=== PATIENT | male | born 1950 | race Caucasian/White ===

== ENCOUNTER 2020-10-27 14:53 | Emergency (ER) | payer MEDICARE, BC, SELFPAY ==
[2020-10-27 14:55] VITALS: BP 175/61; PULSE 90; RESP 17; TEMP 35.6; O2SAT 99; BMI 34.4
--- NOTE | 2020-10-27 15:25 | EKG12_ITS ---
Test Reason : ABN LABS Blood Pressure : / mmHG Vent. Rate : 075 BPM Atrial Rate : 075 BPM P-R Int : 152 ms QRS Dur : 148 ms QT Int : 422 ms P-R-T Axes : 046 056 -24 degrees QTc Int : 471 ms Normal sinus rhythm Left bundle branch block Abnormal ECG Confirmed by SARAH SANTANA, PAKO ([id number]), sports editor TIM QUISPE ([id number]) on 10/31/2020 2:37:50 PM Referred By: DARRIUS Confirmed By:PAKO SMITH MD
[2020-10-27 15:36] LABS: Absolute Lymphocyte Count 1.77 X10^3/uL (0.83-4.51); Basophil# 0.07 X10^3/uL; Basophil% 1.1 % (0-1); Eosinophil# 0.16 X10^3/uL; Eosinophils% 2.5 % (0-5); Hematocrit 29.1 % (40-54); Hemoglobin 8.2 g/dL (13.0-16.5); Lymphocyte # 1.77 X10^3/ul (4.0); Lymphocyte % 27.1 % (19-41); Mean Corp Hgb Conc 28.2 g/dL (32-36); Mean Corpuscular Hgb 21.2 pg (27.0-32.0); Mean Corpuscular Volume 75.2 fL (80-94); Mean Platelet Vol. 10.7 fl (6.2-12.0); Monocyte# 0.54 X10^3/uL; Monocyte% 8.3 % (0-10); NRBC Flagged by Analyzer 0 % (0-5); Neutrophil # 3.95 X10^3/uL (2.7-7.7); Neutrophil % 60.5 % (47-70); Platelet Count 235 K/mm3 (150-450); RBC Distribution Width CV 16.4 % (11.6-14.6); RBC Distribution Width SD 44.3 fl (35.1-43.9); Red Blood Count 3.87 M/mm3 (4.6-6.2); White Blood Count 6.5 K/mm3 (4.4-11.0)
[2020-10-27 15:50] LABS: Anion Gap 6 (5-15); BUN 38 mg/dL (7-18); BUN/Creat Ratio 25.2 RATIO (10-20); Chloride 109 mmol/L (98-107); Creatinine, Serum 1.51 mg/dL (0.70-1.30); EST Glomerular Filtration Rate 49 mL/min (>60); Est Glom Filt Rate - Afr Amer 59 mL/min (>60); Estimated Creatinine Clearance 50.68 ml/min; Glucose 200 mg/dL (74-106); Sodium Level 139 mmol/L (136-145)
--- NOTE | 2020-10-27 16:32 | ED.VIS.GEN ---
History of Present Illness Chief Complaint: Abn Labs Informant: Patient Onset: Month(s) - 1-2 Context: Gradual Onset Timing: Continuous Quality: weakness Location: all over Current Severity: Moderate Maximum Severity: Moderate Worsened by: nothing in particular Relieved by: nothing Associated Symptoms: intermittent BRBPR x several weeks Narrative: Patient gets blood work every 6 weeks routinely for the last several years because he had a broken neck that required surgery and subsequent dehiscence of the wound, had plastics place a flap that did not take and became infected with MRSA and then required other plastics manipulation of back muscles, with a significantly complicated course. He states the most recent blood work was obtained about 5 days ago, and showed anemia. When his doctor's office called to discuss with him, they told him how he was having rectal bleeding and so he advised him to come to the emergency department for further evaluation. Patient has had lightheadedness and a couple episodes of near syncope over the past several months, no syncopal episodes, or dyspnea with exertion or chest discomfort or falls/injuries. Patient states that the intermittent rectal bleeding has been present for weeks, and he seems to have bleeding whenever he has a hard stool and he feels a small external hemorrhoid there. He has had no major pain there or major ongoing bleeding. He takes daily aspirin but is on no anticoagulants. - Past Medical History (1) Hypertension Status: Chronic (2) Hyperlipidemia Status: Chronic (3) GERD (gastroesophageal reflux disease) Status: Chronic (4) History of MRSA infection Status: Chronic (5) CAD (coronary artery disease) Status: Chronic (6) Uncontrolled type 2 diabetes mellitus Status: Chronic Past Medical History - Allergies and Home Meds Allergies/Adverse Reactions: Allergies Hxikvjy-Lum-Huu Reductase Inhibitor Adverse Reaction (Verified 10/27/20 14:54) Other WEAKNESS, SORE LEGS Primary Care Physician: Jose Luis Larose MD [Primary Care Provider] - Smoking Status: Former smoker Review of Systems General: Reports: Malaise. Denies: Chills, Fever, Sweats Eyes: Denies: Visual changes - bilaterally, Diplopia ENT: Denies: Rhinorrhea, Sore throat Cardiovascular: Denies: Chest pain, Palpitations Respiratory: Denies: Dyspnea, Cough, Dyspnea on exertion Gastrointestinal: Reports: Hematochezia. Denies: Abdominal pain, Nausea, Vomiting, Diarrhea, Melena Genitourinary: Denies: Dysuria, Hematuria, Frequency Musculoskeletal: Denies: Swelling, Extremity Pain Skin: Denies: Rash, Wounds Neurological: Denies: Headache, Weakness, Numbness Physical Exam Vital Signs/Narrative: Vital Signs Temp Pulse Resp BP Pulse Ox 10/27/20 14:55 96.0 F L 90 17 175/61 H 99 Inital Vital Signs reviewed: Yes General: Well nourished, Well developed, No Acute Distress - Conversive in full sentences, well-appearing Head: Normocephalic, Atraumatic Eyes: Perrl, EOMI ENT: Moist mucous membranes, No rhinorrhea Neck: Supple, Nontender, No lymphadenopathy, No JVD Cardiovascular: Regular rate, Regular rhythm, Murmur - Soft systolic, 08/31. Negative for: Tachycardia Respiratory: No distress, CTA bilaterally, Chest nontender Abdomen: Soft, Nontender, Nondistended, Normal bowel sounds Back: Nontender, Normal Inspection Extremities: Nontender, No edema Skin: Normal color, No rash, No Trauma Neurological: Alert, Oriented x3, Cranial nerves II-XII grossly intact, Normal Strength, Normal Sensation Psychological: Normal affect, Normal Mood Diagnostic/Tx/Re-eval Laboratory Results 10/27/20 10/27/20 15:05 15:05 WBC 6.5 RBC 3.87 L Hgb 8.2 L Hct 29.1 L MCV 75.2 L MCH 21.2 L MCHC 28.2 L RDW Std Deviation 44.3 H RDW Coeff of Arleen 16.4 H Plt Count 235 MPV 10.7 Immature Gran % (Auto) 0.500 Neut % (Auto) 60.5 Lymph % (Auto) 27.1 [place] % (Auto) 8.3 Eos % (Auto) 2.5 Baso % (Auto) 1.1 H Absolute Neuts (auto) 4.0 Absolute Lymphs (auto) 1.77 Nucleated RBC % 0 Sodium 139 Potassium 5.0 Chloride 109 H Carbon Dioxide 24.0 Anion Gap 6 BUN 38 H Creatinine 1.51 H Estim Creat Clear Calc 50.68 Est GFR (MDRD) Af Amer 59 L Est GFR (MDRD) Non-Af 49 L BUN/Creatinine Ratio 25.2 H Glucose 200 H Calcium 9.0 Troponin I < 0.015 - Rhythm Strip Rhythm Strip: Sinus Rhythm Rate: 75 Ectopy: None - EKG Initial EKG Interpretation: Sinus Rhythm, No Acute Injury Pattern, LBBB Prior: No Prior - Medical Decision Making Patient sent globin is 8.2. His PCP had measurements from several days ago showing a hemoglobin of 8.9 and 3 or 4 months ago he was around 10. The patient indicates that he has had intermittent rectal bleeding from what feels like a hemorrhoid that is just inside and has never prolapsed for several years. He states this fairly consistently occurs when he passes a very hard stool and subsequently, he then uses Preparation H for a couple days and has no subsequent bleeding. He states he has had a colonoscopy in the past and as a result they have done something with a couple hemorrhoids. He does not have any unstable vital signs or tachycardia or symptoms of unstable bleeding. He declines a rectal exam to evaluate his hemorrhoid or rectum. At this point I discussed with him, his , and his PCP and all are comfortable with placing him on iron supplementation and having him follow-up as an outpatient for now. Of note he has renal insufficiency as well, that is also relatively stable within the last 4 months after discussing over the phone prior measurements, and he may have subsequent anemia of chronic disease, although his MCV is low today. ED Disposition - Plan for ED Patient: Disposition: Home or Assisted Living Diagnosis: Anemia, CRI (chronic renal insufficiency), Rectal bleeding Instructions: ED Lower GI Bleeding (Stable), ED Anemia, Type Not Specified (Adult) Prescriptions: Ferrous Sulfate [Iron] 325 mg PO TID #90 tab Transmission Status: Pending to [id number] Referrals: Jose Luis Laorse MD [Primary Care Provider] - 1-2 Weeks Additional Instructions: Consider getting a stool softener such as MiraLAX to use daily
== END 2020-10-27 17:57 | disposition home or self-care (01) ==
PROVIDERS: Emergency Provider Emergency Medicine; PCP Family Medicine
DX: D64.9 Anemia, unspecified (principal); I12.9 Hypertensive chronic kidney disease with stage 1 through stage 4 chronic kidney disease, or unspecified chronic kidney disease; K62.5 Hemorrhage of anus and rectum; N18.9 Chronic kidney disease, unspecified; E11.22 Type 2 diabetes mellitus with diabetic chronic kidney disease; E78.5 Hyperlipidemia, unspecified; I25.10 Atherosclerotic heart disease of native coronary artery without angina pectoris; K21.9 Gastro-esophageal reflux disease without esophagitis; I44.7 Left bundle-branch block, unspecified; Z79.82 Long term (current) use of aspirin; Z86.14 Personal history of Methicillin resistant Staphylococcus aureus infection; Z87.891 Personal history of nicotine dependence; Z88.8 Allergy status to other drugs, medicaments and biological substances
CPT/HCPCS: 80048; 84484; 85025; 86850; 86900; 86901; 93005; 99283

== ENCOUNTER 2020-12-13 09:01 | Day surgery (SDC) | payer MEDICARE, BC, SELFPAY ==
[2020-12-01 11:46] VITALS: BMI 34.7
[2020-12-13] VITALS (7 sets, daily range): BP systolic 112–125; BP diastolic 71–80; PULSE 66–71; RESP 14–16; TEMP 36.2–36.8; O2SAT 99–100; BMI 32.8
--- NOTE | 2020-12-13 | IMM_PTH ---
PATIENT: ATA DE LA TORRE LOC: EN U#:[id number] AGE/SX: 70/M ROOM: RE12/13/[address]: Dr. Bronson Jacobson MD : 1950 BED: DIS: 12/13/2020 SPEC #: [id number] RECD: 12/14/20 11:51 STATUS: TAWANDA REQ #: [id number] AWILDA: 12/13/20 00:[address]: Bronson Jacobson DEPT: IMMUNOHISTOCHEMISTRY RECD BY: Yeimy Ortega ENTERED: 12/14/20 11:53 SP TYPE: IMMUNO OTHR DR: Dr. Jose Luis Larose MD Tissues: A - Gastric mucous membrane B - Cecum, NOS Procedures: MSH2 (add) MLH-1 (add) MSH6 (add) NORTH-2 (add) HER2 HANNAH (add) P53 (add) KI-67 (initial) PHYSICIAN & INSTITUTION [place] [id number] SPECIMEN INFORMATION: Tissue Source: A - GE junction biopsy, B - Cecal mass Clinical Info: Positive fecal occult blood test, iron deficiency anemia Specimen Number: [id number] A & B CPT code: 61470 x2, 59251 x8 METHODOLOGY: Deparaffinized sections of prefer/formalin-fixed tissue or PAP/DQ stained slides are incubated with monoclonal/polyclonal antibodies/oligonucleotide probes. Localization is made via biotin free immunoperoxidase method. Appropriate controls are performed and reacted as expected. Results on target cell population are indicated in the following table: RESULTS: ANTIBODY / CLONE RESULT Block A P53 (DO-7) negative Ki-67 (30-9) negative Block B Ki-67 (30-9) positive, 80% P53 (DO-7) positive, 25% NORTH-2 (SP21) positive MLH-1 (M1) positive MSH2 (25D12) positive MSH6 (44) positive PMS2 (QEZ6246) positive Her-2neu (CB11) negative These tests were developed and their performance characteristics determined by [facility]. They may not have been cleared or approved by the U.S. Food and Drug Administration. The FDA has determined that such clearance or approval is not necessary. The above immunohistochemical/dualISH markers are ordered and reviewed by the Pathologist. INTERPRETATION: A. GE junction, biopsy: No evidence of dysplasia. B. Cecal mass, biopsy: Invasive adenocarcinoma. Result of Microsatellite Instability Study: Negative (no loss of mismatch protein; no microsatellite instability detected). AM:florencia 12/15/2020
--- NOTE | 2020-12-13 07:12 | HP_ITS ---
Intake Vital Signs 12/01/20 Height 5 ft 11.5 in 12/01/20 Weight: 252 lb 3 oz 12/01/20 BMI 34.7 12/01/20 BP 150/81 H 12/01/20 Blood Pressure Location Rt brachial 12/01/20 Position Sitting 12/01/20 Respiration 18 12/01/20 Pulse 77 12/01/20 Pulse Source NIBP 12/01/20 Temp 97.7 F L 12/01/20 Temp Source Temporal 12/01/20 Pulse Oximetry (%) 98 12/01/20 Oxygen Delivery Method room air Intake Visit Reasons: C-Scope/Anemia Chief Complaint: anemia Security Solutions Engineer Required: No Is patient in pain?: No Allergies Tfsafae-Efa-Ofp Reductase Inhibitor Adverse Reaction (Verified 12/01/20 11:47) Other Medications Acetaminophen [Tylenol Arthritis] 1,300 mg PO BID PRN PRN 10/27/20 [History Confirmed 12/01/20] Aspirin E.C. [Ecotrin] 81 mg PO DAILY@0800 10/27/20 [History Confirmed 12/01/20] Diclofenac [Voltaren] 75 mg PO BID 10/27/20 [History Confirmed 12/01/20] Esomeprazole Magnesium 40 mg PO DAILY 10/27/20 [History Confirmed 12/01/20] Ezetimibe 10 mg PO DAILY 10/27/20 [History Confirmed 12/01/20] Ferrous Sulfate [Iron] 325 mg PO TID #90 tab 10/27/20 [Rx Confirmed 12/01/20] Fluticasone Propionate 2 spray NASAL DAILY 10/27/20 [History Confirmed 12/01/20] Goldenseal 325 mg PO DAILY 10/27/20 [History Confirmed 12/01/20] Metformin HCl 500 mg PO BID 10/27/20 [History Confirmed 12/01/20] Multivitamins,Therapeutic [Multivitamin] 1 tab PO DAILY 10/27/20 [History Confirmed 12/01/20] Smz/Tmp Ds [Bactrim Ds] 1 tab PO DAILY 10/27/20 [History Confirmed 12/01/20] Tadalafil 5 mg PO DAILY 10/27/20 [History Confirmed 12/01/20] lisinopril 5 mg tablet 10 mg PO DAILY tablet 12/01/20 [History Confirmed 12/01/20] nystatin 100,000 unit/gram topical ointment gm TOPICAL 12/01/20 [History Confirmed 12/01/20] [facility] Medical History (Updated 12/01/20 @ 12:[address] Bronson Jacobson MD) Hypertension (Chronic) Hyperlipidemia (Chronic) GERD (gastroesophageal reflux disease) (Chronic) History of MRSA infection (Chronic) CAD (coronary artery disease) (Chronic) Uncontrolled type 2 diabetes mellitus (Chronic) Anemia (Acute) BPH (benign prostatic hyperplasia) (Acute) History of neck injury (Acute) History of prostate cancer (Acute) Chronic neck pain (Chronic) Chronic sinusitis (Chronic) Surgical History (Updated 12/01/20 @ 11:46 by Gabbi Magana) History of colonoscopy (Acute ~2010) History of heart bypass surgery (Acute ~2010) History of neck surgery (Acute ~2017) History of prostatectomy (Acute ~2010) Family History (Updated 12/01/20 @ 11:46 by Gabbi Magana) Other Cancer Heart disease Hypertension Social History (Updated 12/01/20 @ 12:[address] Bronson Jacobson MD) Smoking Status: Former smoker HPI HPI HPI: ATA DE LA TORRE, is a 70 M who presents to the office today for HPI HPI Surgical H&P: Yes HPI: DEBBIE DE LA TORRE, is a 70 M who presents to the office today for anemia positive fecal occult blood test. The patient reports that he has become slowly anemic. He has not had any gross blood in his stool. He has baseline discomfort in his abdomen with acid reflux and he is on Nexium. He had a normal colonoscopy in 2010. ROS General General: Yes fatigue; no weight change, appetite, colon cancer, breast cancer or weakness HEENT HEENT: No difficulty swallowing, eye injury, eye surgery, swollen glands or hoarseness Endo Endocrine: Yes diabetes mellitus; no thyroid disease, thyroid cancer, Hair loss, heat intolerance or cold intolerance Musc Musculoskeletal: Yes back problems and arthritis; no rheumatoid arthritis, gout or joint pain Cardio Cardiovascular: Yes heart disease and high blood pressure; no murmur, pacemaker, atrial fibrillation, heart attack, heart stent, palpitations, shortness of breat with exertion or chest pain Psych Psychiatric: No depression, anxiety or hearing voices Resp Respiratory: No shortness of breath, No sleep apnea, No cough, No COPD, No asthma, No emphysema, No wheezing Gastro Gastrointestinal: Yes abdominal pain, No nausea or vomiting, Yes diarrhea, Yes constipation, Yes blood in stool, Yes acid reflux, Yes hemorrhoids, Yes ulcers, No gallbladder problem, Yes black,tarry stools Aidan Hematologic: No blood thinners, Yes blood disorders, No bleeding, Yes anemia, No blood clots Neuro Neurologic: No weakness Exam Const General: cooperative Orientation: alert, oriented x3 Resp Effort & Inspection: normal respiratory effort Auscultation: clear to auscultation bilaterally Cardio Rate: regular rate Rhythm: regular rhythm Heart Sounds: no murmurs GI Inspection: non-distended Palpation: soft, nontender Assessment & Plan Problems 1. Positive fecal occult blood test R19.5 2. Iron deficiency anemia, unspecified iron deficiency anemia type D50.9 Plan The patient has positive fecal occult blood test and anemia he has required transfusion. He has no gross blood in his stool. The patient is on a baby aspirin and I do recommend that he have an EGD and colonoscopy. He may continue his aspirin. The patient is already on a PPI. I explained endoscopy in detail to the patient. I explained the risks including but not limited to stroke or heart attack with anesthesia, perforation of the GI tract, bleeding, infection. I explained that any of these could necessitate further emergency surgery. The patient understands and all questions were answered sufficiently. The patient wishes to proceed with procedure. Bronson Jacobson MD Pager: [facility] [address] [place] [address], [address] [place] [address] Office: Orders Orders: Colonoscopy Today D64.9, R19.5 EGD Today D64.9 Coding Level of Care Code Off vis,new,level 3 Diagnoses Positive fecal occult blood test R19.5 Iron deficiency anemia, unspecified iron deficiency anemia type D50.9 ??Anemia type: iron deficiency ??Iron deficiency anemia type: unspecified iron deficiency I have re-examined the patient. There are no clinical changes since date of exam.
--- NOTE | 2020-12-13 10:15 | EGD_PTH ---
PATIENT: ATA DE LA TORRE LOC: EN U#:[id number] AGE/SX: 70/M ROOM: RE12/13/[address]: Dr. Bronson Jaocbson MD : 1950 BED: DIS: 12/13/2020 SPEC #: [id number] RECD: 12/13/20 11:13 STATUS: TAWANDA REMaverick #: [id number] AWILDA: 12/13/20 10:[address]: Bronson Jacobson DEPT: SURGICAL PATHOLOGY RECD BY: Lexy Vickers ENTERED: 12/13/20 12:35 SP TYPE: EGD BIOPSY OT DR: Dr. Jose Luis Larose MD Tissues: A - Gastric mucous membrane B - Cecum, NOS Procedures: Special Stain Group II Surgery Specimen Level IV Alcian Blue/PAS (control) HEADER OPERATION: Colonoscopy, EGD ([facility]) PRE-OP DIAGNOSIS: Positive fecal occult blood test; iron deficiency anemia TISSUE SUBMITTED: A - GE junction biopsy, B - Cecal mass MICROSCOPIC DIAGNOSIS A. 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 No evidence of dysplasia. See comment. B. Cecal mass, biopsy: Invasive moderately differentiated adenocarcinoma. See comment. AM:florencia 12/14/2020 COMMENT A. Immunohistochemistry ([id number]) supports the above diagnosis. Alcian blue/PAS stain with matched control supports the above diagnosis. B. Immunohistochemistry ([id number]) supports the above diagnosis. Case has been reviewed in consultation with Dr. Salmeron who concurs with the above diagnosis. IDC:SJ MICROSCOPIC DESCRIPTION Slides are reviewed. GROSS DESCRIPTION A - Received in fixative is one container labeled with the patient's name and designated GE junction biopsy. The specimen consists of multiple irregular fragments of light troncoso soft tissue that in aggregate measure 0.6 x 0.3 x 0.1 cm. The specimen is totally submitted in one cassette. B - Received in fixative is one container labeled with the patient's name and designated cecal mass. The specimen consists of multiple irregular fragments of light troncoso soft tissue that in aggregate measure 1.5 x 0.5 x 0.1 cm. The specimen is totally submitted in one cassette. / DARIAN:florencia 12/13/20 TC:0 CPT: 99789 x2, 15148
--- NOTE | 2020-12-13 11:02 | PN_ITS ---
Progress Note Patient was found to have a mass in the cecum on the colonoscopy. I discussed this with the patient and his . I will order a CT scan for staging as well as a CEA and a CBC and BMP. Patient will follow-up with me next week to discuss surgery. Bronson Jacobson MD Pager: [facility] [address] [place] [address], [address] [place] [address] Office: [facility] Vital Signs/Narrative: Vital Signs Temp Pulse Resp BP Pulse Ox 12/13/20 09:25 98.2 F 68 16 122/75 H 100
--- NOTE | 2020-12-13 11:02 | PCM.PN.BLA ---
Progress Note Patient was found to have a mass in the cecum on the colonoscopy. I discussed this with the patient and his . I will order a CT scan for staging as well as a CEA and a CBC and BMP. Patient will follow-up with me next week to discuss surgery. Bronson Jacobson MD Pager: [facility] [address] [place] [address], [address] [place] [address] Office: [place] Vital Signs/Narrative: Vital Signs Temp Pulse Resp BP Pulse Ox 12/13/20 09:25 98.2 F 68 16 122/75 H 100
--- NOTE | 2020-12-13 11:05 | OP.EGD_ITS ---
Patient Name: Sekou Daniel Procedure Date: 12/13/2020 10:24 AM Date of : 1950 Age: 70 Procedure: Upper GI endoscopy Indications: Abdominal pain in the right lower quadrant, Iron deficiency anemia Providers: Bronson Jacobson MD Referring MD: Jose Luis Larose Medicines: Monitored Anesthesia Care Patient Profile: This is a 70 year old male. Refer to note in patient chart for documentation of history and physical. Complications: No immediate complications. Procedure: Pre-Anesthesia Assessment: - Prior to the procedure, a History and Physical was performed, and patient medications and allergies were reviewed. The patient's tolerance of previous anesthesia was also reviewed. The risks and benefits of the procedure and the sedation options and risks were discussed with the patient. All questions were answered, and informed consent was obtained. Prior Anticoagulants: The patient has taken no previous anticoagulant or antiplatelet agents. After reviewing the risks and benefits, the patient was deemed in satisfactory condition to undergo the procedure. After obtaining informed consent, the endoscope was passed under direct vision. Throughout the procedure, the patient's blood pressure, pulse, and oxygen saturations were monitored continuously. The gastroscope was introduced through the mouth, and advanced to the second part of duodenum. The upper GI endoscopy was accomplished without difficulty. The patient tolerated the procedure well. Scope In: 10:33:49 AM Scope Out: 10:36:25 AM Total Procedure Duration Time 0 hours 2 minutes 36 seconds Findings: The esophagus and gastroesophageal junction were examined with white light from a forward view and retroflexed position. There were esophageal mucosal changes suspicious for short-segment Mendoza's esophagus. These changes involved the mucosa extending to the Z-line. One tongue of salmon-colored mucosa was present. The maximum longitudinal extent of these esophageal mucosal changes was 2 cm in length. Mucosa was biopsied with a cold forceps for histology in a targeted manner at the gastroesophageal junction. One specimen bottle was sent to pathology. The examined duodenum was normal. The stomach was normal. 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 Biopsied. - Normal examined duodenum. - Normal stomach. Recommendation: - Await pathology results. - Discharge patient to home. - Resume previous diet. - Continue present medications. Procedure Code(s): --- Professional --- 72981, Esophagogastroduodenoscopy, flexible, transoral; with biopsy, single or multiple Diagnosis Code(s): --- Professional --- K22.8, Other specified diseases of esophagus R10.31, Right lower quadrant pain D50.9, Iron deficiency anemia, unspecified CPT copyright 2017 [employer]. All rights reserved. The codes documented in this report are preliminary and upon customer advocacy manager review may be revised to meet current compliance requirements. Bronson Jacobson MD 12/13/2020 11:05:11 AM This report has been signed electronically. Number of Addenda: 0 Note Initiated On: 12/13/2020 10:24 AM
--- NOTE | 2020-12-13 11:05 | OP.CCLET_ITS ---
12/13/2020 Jose Luis Larose [address] [place] [address] [place] [address] Re : Upper GI endoscopy procedure for Sekou Daniel Dear Dr. Larose This procedure was performed on Sunday, December 13, 2020. 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 Biopsied. - Normal examined duodenum. - Normal stomach. Recommendations : - Await pathology results. - Discharge patient to home. - Resume previous diet. - Continue present medications. My findings are described in the full procedure note, which is enclosed. If I can be of further assistance, please feel free to contact me at Doctor phone number(s): , Work: . Sincerely, Bronson Jacobson MD 12/13/2020 11:05:11 AM This report has been signed electronically.
--- NOTE | 2020-12-13 11:10 | OP.COLON_ITS ---
Patient Name: Sekou Daniel Procedure Date: 12/13/2020 10:38 AM Date of : 1950 Age: 70 Procedure: Colonoscopy Indications: Abdominal pain in the right lower quadrant, Iron deficiency anemia Providers: Bronson Jacobson MD Referring MD: Jose Luis Larose Medicines: Monitored Anesthesia Care Patient Profile: This is a 70 year old male. Refer to note in patient chart for documentation of history and physical. Last Colonoscopy: 10 years ago. Complications: No immediate complications. Estimated blood loss: Minimal. Procedure: Pre-Anesthesia Assessment: - Prior to the procedure, a History and Physical was performed, and patient medications and allergies were reviewed. The patient's tolerance of previous anesthesia was also reviewed. The risks and benefits of the procedure and the sedation options and risks were discussed with the patient. All questions were answered, and informed consent was obtained. Prior Anticoagulants: The patient has taken aspirin, last dose was day of procedure. After reviewing the risks and benefits, the patient was deemed in satisfactory condition to undergo the procedure. After I obtained informed consent, the scope was passed under direct vision. Throughout the procedure, the patient's blood pressure, pulse, and oxygen saturations were monitored continuously. The Colonoscope was introduced through the anus and advanced to the cecum, identified by appendiceal orifice and ileocecal valve. Scope In: 10:39:41 AM Scope Withdrawal Time 0 hours 6 minutes 9 seconds Scope Out: 10:51:08 AM Total Procedure Duration Time 0 hours 11 minutes 27 seconds Findings: A fungating non-obstructing large mass was found in the cecum. The mass was non-circumferential. No bleeding was present. This was biopsied with a cold forceps for histology. The exam was otherwise without abnormality on direct and retroflexion views. Impression: - Likely malignant tumor in the cecum. Biopsied. - The examination was otherwise normal on direct and retroflexion views. Recommendation: - Discharge patient to home. - Resume previous diet. - Continue present medications. - Await pathology results. - Repeat colonoscopy for surveillance based on pathology results. - Return to my office in 1 week. - Perform CT scan (computed tomography) of the abdomen with contrast at appointment to be scheduled. Procedure Code(s): --- Professional --- 21081, Colonoscopy, flexible; with biopsy, single or multiple Diagnosis Code(s): --- Professional --- D49.0, Neoplasm of unspecified behavior of digestive system R10.31, Right lower quadrant pain D50.9, Iron deficiency anemia, unspecified CPT copyright 2017 [employer]. All rights reserved. The codes documented in this report are preliminary and upon gang boss review may be revised to meet current compliance requirements. Bronson Jacobson MD 12/13/2020 11:10:25 AM This report has been signed electronically. Number of Addenda: 0 Note Initiated On: 12/13/2020 10:38 AM
--- NOTE | 2020-12-13 11:11 | OP.CCLET_ITS ---
12/13/2020 Jose Luis Larose [address] [place] [address] [place] [address] Re : Colonoscopy procedure for Sekou Daniel Dear Dr. Larose This procedure was performed on Sunday, December 13, 2020. My impressions and recommendations are as follows: Impressions : - Likely malignant tumor in the cecum. Biopsied. - The examination was otherwise normal on direct and retroflexion views. Recommendations : - Discharge patient to home. - Resume previous diet. - Continue present medications. - Await pathology results. - Repeat colonoscopy for surveillance based on pathology results. - Return to my office in 1 week. - Perform CT scan (computed tomography) of the abdomen with contrast at appointment to be scheduled. My findings are described in the full procedure note, which is enclosed. If I can be of further assistance, please feel free to contact me at Doctor phone number(s): , Work: . Sincerely, Bronson Jacobson MD 12/13/2020 11:10:25 AM This report has been signed electronically.
[2020-12-13 11:51] LABS: Bedside Glucose 156 mg/dL (70-110)
[2020-12-13 12:08] LABS: Absolute Lymphocyte Count 1.36 X10^3/uL (0.83-4.51); Absolute Neutrophil Count 3.5 X10^3/uL (2.0-7.7); Basophil# 0.04 X10^3/uL; Basophil% 0.7 % (0-1); Eosinophil# 0.12 X10^3/uL; Eosinophils% 2.2 % (0-5); Hematocrit 35.5 % (40-54); Hemoglobin 10.9 g/dL (13.0-16.5); Lymphocyte # 1.36 X10^3/ul (0.83-4.51); Lymphocyte % 25.2 % (19-41); Mean Corp Hgb Conc 30.7 g/dL (32-36); Mean Corpuscular Hgb 26.2 pg (27.0-32.0); Mean Corpuscular Volume 85.3 fL (80-94); Mean Platelet Vol. 10.7 fl (6.2-12.0); Monocyte# 0.35 X10^3/uL; Monocyte% 6.5 % (0-10); NRBC Flagged by Analyzer 0 % (0-5); Platelet Count 162 K/mm3 (150-450); RBC Distribution Width CV 19.4 % (11.6-14.6); RBC Distribution Width SD 59.9 fl (35.1-43.9); Red Blood Count 4.16 M/mm3 (4.6-6.2); White Blood Count 5.4 K/mm3 (4.4-11.0)
[2020-12-13 12:32] LABS: Anion Gap 5 (5-15); BUN 18 mg/dL (7-18); BUN/Creat Ratio 15.7 RATIO (10-20); Calcium,Total 8.9 mg/dL (8.5-10.1); Chloride 104 mmol/L (98-107); Creatinine, Serum 1.15 mg/dL (0.70-1.30); EST Glomerular Filtration Rate 67 mL/min (>60); Est Glom Filt Rate - Afr Amer 81 mL/min (>60); Glucose 140 mg/dL (74-106); Potassium 4.8 mmol/L (3.5-5.1); Sodium Level 136 mmol/L (136-145)
[2020-12-14 12:17] LABS: Carcinoembryonic Antigen 9.2 ng/mL (0.0-4.7)
== END 2020-12-13 12:18 | disposition home or self-care (01) ==
LOC: EN 09:01 → AC 09:03
PROVIDERS: PCP Family Medicine; Referring Provider Family Medicine; Visit Provider Surgery
PROC: 0DJD8ZZ Inspection of Lower Intestinal Tract, Via Natural or Artificial Opening Endoscopic (ICD-10-PCS; CPT 45378; principal; 2020-12-13 10:10)
DX: C18.0 Malignant neoplasm of cecum (principal); K22.70 Barrett's esophagus without dysplasia; R19.5 Other fecal abnormalities; D50.9 Iron deficiency anemia, unspecified; Z79.82 Long term (current) use of aspirin; K22.8 Other specified diseases of esophagus; R10.31 Right lower quadrant pain; K21.9 Gastro-esophageal reflux disease without esophagitis; I10 Essential (primary) hypertension; E78.5 Hyperlipidemia, unspecified; I25.10 Atherosclerotic heart disease of native coronary artery without angina pectoris; Z85.46 Personal history of malignant neoplasm of prostate; Z86.14 Personal history of Methicillin resistant Staphylococcus aureus infection; Z87.891 Personal history of nicotine dependence; Z79.1 Long term (current) use of non-steroidal anti-inflammatories (NSAID); Z79.84 Long term (current) use of oral hypoglycemic drugs; Z88.8 Allergy status to other drugs, medicaments and biological substances
CPT/HCPCS: 43239; 45380; 80048; 82378; 82962; 85025; 88305; 88313; 88341; 88342; J7120; J2405

== ENCOUNTER → 2020-12-15 17:44 | Outpatient (CLI) | payer MEDICARE, BC, SELFPAY ==
[2020-12-13 09:25] VITALS: BMI 32.8
--- NOTE | 2020-12-15 17:45 | CT_ITS ---
INDICATION: colon mass EXAMINATION: CT Abdomen And Pelvis W/ Contrast Injection TECHNIQUE: Helically acquired images were obtained of the abdomen and pelvis after IV contrast. A radiation dose optimization technique was used for this scan. IV Contrast dosage and agent: 100 cc of [id number] Oral contrast: Yes. COMPARISON: None. FINDINGS: Visualized lung bases: Few tiny clustered nodular opacities in the right lung base. Liver: Unremarkable Gallbladder: Unremarkable Spleen: Unremarkable Pancreas: Unremarkable Adrenal Glands: Unremarkable Kidneys: Simple 1.3 cm cyst in the left midpole. Vasculature: Moderate aortoiliac atherosclerotic disease. GI Tract: Scattered diverticula throughout the colon without evidence of inflammation. In the cecum just distal to the ileocecal valve, there is irregular wall thickening measuring approximately 2.5 x 4.5 x 2.4 cm. Lymphadenopathy: There are a couple prominent ileocecal nodes measuring 8 mm and 7 mm, respectively. Peritoneum: No ascites. Bladder: Unremarkable Reproductive organs: Unremarkable Bones/Soft tissues: There are diffuse degenerative changes of the spine. CT/Abdomen/Pelvis WITH Contrast IMPRESSION: 4.5 cm masslike thickening of the cecum just distal to the ileocecal valve. This is concerning for malignancy. Few tiny clustered nodular opacities in the right lung base. Recommend dedicated chest CT for further evaluation. Electronically Signed: Elbert Baig MD at 22:52 EDT Tel , Service support ,
== END ==
PROVIDERS: PCP Family Medicine; Referring Provider Surgery; Visit Provider Surgery
DX: K63.9 Disease of intestine, unspecified (principal)
CPT/HCPCS: 74177; Q9967

== ENCOUNTER 2021-01-02 08:44 | Inpatient (IN) | payer MEDICARE, BC, SELFPAY ==
[2020-12-21 14:07] VITALS: BMI 32.8
--- NOTE | 2020-12-26 15:33 | NURSING ---
pt reports he had second pfizer vaccine on 11/01/20.
[2020-12-27 13:37] LABS: Hemoglobin 10.8 g/dL (13.0-16.5); Mean Corpuscular Volume 86.7 fL (80-94); Platelet Count 183 K/mm3 (150-450); RBC Distribution Width CV 17.6 % (11.6-14.6); RBC Distribution Width SD 57.1 fl (35.1-43.9); Red Blood Count 4.15 M/mm3 (4.6-6.2); White Blood Count 6.8 K/mm3 (4.4-11.0)
[2020-12-27 13:52] LABS: Prothrombin Time (Protime)PT. 12.4 SECONDS (11.7-14.9)
[2020-12-27 13:53] LABS: Partial Thromboplast Time 25.9 Seconds (24.1-36.2)
[2020-12-27 14:10] LABS: Magnesium 2.4 mg/dL (1.6-2.6)
[2020-12-27 14:14] LABS: Hemoglobin A1c 6.1 % (3.8-5.6)
[2021-01-02] VITALS (18 sets, daily range): BP systolic 95–154; BP diastolic 48–79; PULSE 49–76; RESP 16–18; TEMP 36.2–36.9; O2SAT 93–100; BMI 32.5
--- NOTE | 2021-01-02 | COL._PTH ---
PATIENT: ATA DE LA TORRE LOC: MS3 U#:[id number] AGE/SX: 70/M [place] [facility]: Dr. Bronson Jacobson MD : 1950 BED: 1 DIS: 01/06/2021 SPEC #: [id number] RECD: 01/02/21 13:34 STATUS: TAWANDA WESTFALL #: [id number] AWILDA: 01/02/21 00:[address]: Bronson Jacobson DEPT: SURGICAL PATHOLOGY RECD BY: Fracisco Araujo ENTERED: 01/02/21 13:34 SP TYPE: COLON OTHR DR: MD Dr. 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 26 out of 26 lymph nodes, negative for metastatic carcinoma. See cancer summary in the comment section. SJ:florencia 01/04/2021 COMMENT COLON CANCER SUMMARY Procedure: Right hemicolectomy Tumor site: Cecum Tumor size: 6 x 4 x 0.5 cm Macroscopic tumor perforation: Not identified Histologic type: Adenocarcinoma with focal mucinous differentiation. See comment below. Histologic grade: G2-3 (moderately to poorly differentiated) Tumor extension: Tumor invades muscularis propria. Margins: All margins are uninvolved by invasive carcinoma, high grade dysplasia, intramucosal adenocarcinoma and adenoma. The tumor is 14 cm away from the distal resection margin and 17.5 cm away from the proximal resection margin. Treatment effect: No known presurgical therapy. Lymphvascular invasion: Not identified Perineural invasion: Not identified Type of polyp in which invasive carcinoma arose: None identified Tumor deposits: Not identified Regional lymph nodes: Number of lymph nodes examined: 26 Number of lymph nodes involved: 0 Distant metastasis: Not applicable Additional pathologic findings: Appendix - no pathologic diagnosis. Colonic donut - no pathologic diagnosis. Ancillary studies: Please refer to previous specimen [id number] and [id number] for complete microsatellite instability studies by IHC. The tumor is negative of microsatellite instability (no loss of mismatch protein and no microsatellite instability detected). Please make reference to previous specimen ([id number]) cecal mass, biopsy with diagnosis of ?invasive moderately differentiated adenocarcinoma. PATHOLOGIC STAGE: pT2 pN0 pMx The above summary is in compliance with [employer] (CAP) Cancer Protocols Checklist and [place] [employer] Committee on Cancer (AJCC), Staging Manual, 8th Ed. Mucinous differentiation comprise about 5-10% of the total tumor volume. This case is discussed with Dr. Ling on 01/05/21. MICROSCOPIC DESCRIPTION Slides are reviewed. GROSS DESCRIPTION Received in fixative is one container labeled with the patient's name and designated right colon. The specimen consists of a right hemicolectomy specimen consisting of segment of cecum, ascending colon and small intestine and appendix with attached pericolonic adipose and mesenteric tissue. The segment of colon, cecum with ascending colon measures 15 cm in length and segment of small intestine measures 13 cm in length and the appendix measures 6 cm in length and 0.3 cm in diameter. Both ends are stapled. 14 cm away from the distal resection margin and 2.5 cm away from the ileocecal valve, there is an ulcerated tumor mass in the cecum measuring 6 x 4 x 0.5 cm. No additional mass lesion is identified. The lumen contains fecal material. More dictation will follow after overnight fixation. / SJ:rg 01/02/21 Sections of the appendix reveal markedly obliterated lumen. The serosal surface overlying the tumor is inked black. Sections of the tumor reveal it involves full thickness of the bowel wall. No gross perforation is identified. Sections of the pericolonic adipose tissue reveal multiple lymph nodes. The largest lymph node measures 1.5 cm in greatest dimension. Travograph Operator sections are submitted as follows: 1??donut, 2 - proximal and distal resection margins, 3 - appendix, almost entirely submitted, 48 - tumor, 9??uninvolved ileocecal valve, small and large intestine, 10??one serially sectioned lymph node, 11??multiple lymph nodes, 12 - one bisected lymph node, 13 - one bisected lymph node, 14 - one serially sectioned lymph node, 15 - one serially sectioned lymph node, 16 - one bisected lymph node, 17 - one serially sectioned lymph node, 18 - multiple lymph nodes, 19 - one serially sectioned lymph node, 20??one bisected lymph node, 21 - multiple lymph nodes, 22 - one serially sectioned lymph node, 23??one serially sectioned lymph node, 24 - one serially sectioned lymph node, 25??one bisected lymph node. / SJ:rg 01/03/21 TC:0 CPT: 41117
--- NOTE | 2021-01-02 08:23 | HP_ITS ---
Intake <Angle Brennen Russell - Last Filed: 12/21/20 14:18> Vital Signs 12/21/20 14:02 12/21/20 14:07 Height 6 ft Weight: 242 lb BMI 32.8 32.8 BP 145/78 H Blood Pressure Location Rt brachial Position Sitting Respiration 16 Pulse 75 Pulse Source Monitor Temp 97.1 F L Temp Source Temporal Pulse Oximetry (%) 98 Oxygen Delivery Method room air Intake Visit Reasons: C-Scope CResults & Cat Scan Results Chief Complaint: Discuss CT Scan and c-scope First Sampler Required: No Is patient in pain?: No Allergies Ojnhuwc-Bgk-Dhy Reductase Inhibitor Adverse Reaction (Verified 12/21/20 14:07) Other Medications acetaminophen 1,300 mg PO BID PRN PRN 10/27/20 [History Confirmed 12/21/20] aspirin 81 mg PO DAILY@0800 10/27/20 [History Confirmed 12/21/20] esomeprazole magnesium 40 mg PO DAILY 10/27/20 [History Confirmed 12/21/20] ezetimibe 10 mg PO DAILY 10/27/20 [History Confirmed 12/21/20] ferrous sulfate 325 mg PO TID #90 tab 10/27/20 [Rx Confirmed 12/21/20] fluticasone propionate 2 spray NASAL DAILY 10/27/20 [History Confirmed 12/21/20] goldenseal 325 mg PO DAILY 10/27/20 [History Confirmed 12/21/20] multivitamin 1 tab PO DAILY 10/27/20 [History Confirmed 12/21/20] sulfamethoxazole-trimethoprim 1 tab PO DAILY 10/27/20 [History Confirmed 12/21/20] tadalafil 5 mg PO DAILY 10/27/20 [History Confirmed 12/21/20] lisinopril 5 mg tablet 10 mg PO DAILY tablet 12/01/20 [History Confirmed 12/21/20] metronidazole 500 mg tablet 500 mg PO .COMPLEX #3 tab 12/21/20 [Rx Confirmed 12/21/20] neomycin 500 mg tablet 500 mg PO .COMPLEX #6 tab 12/21/20 [Rx Confirmed 12/21/20] <Dr. Bronson Jacobson MD - Last Filed: 12/21/20 14:54> Vital Signs 12/21/20 14:02 12/21/20 14:07 Height 6 ft Weight: 242 lb BMI 32.8 32.8 BP 145/78 H Blood Pressure Location Rt brachial Position Sitting Respiration 16 Pulse 75 Pulse Source Monitor Temp 97.1 F L Temp Source Temporal Pulse Oximetry (%) 98 Oxygen Delivery Method room air [facility] <Angle Wells - Last Filed: 12/21/20 14:18> Medical History (Updated 12/21/20 @ 14:[address] 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 BPH (benign prostatic hyperplasia) CAD (coronary artery disease) Chronic neck pain Chronic sinusitis GERD (gastroesophageal reflux disease) History of MRSA infection History of neck injury History of prostate cancer Hyperlipidemia Hypertension Uncontrolled type 2 diabetes mellitus Surgical History (Updated 12/21/20 @ 14:14 by Angle Wells) History of colonoscopy (~2010) History of heart bypass surgery (~2010) History of neck surgery (~2017) History of prostatectomy (~2010) Family History (Updated 12/01/20 @ 11:46 by Gabbi Magana) Other Cancer Heart disease Hypertension Social History (Updated 12/01/20 @ 12:[address] Bronson Jacobson MD) Smoking Status: Former smoker HPI <Angle Wells - Last Filed: 12/21/20 14:18> HPI HPI: ATA DE LA TORRE, is a 70 M who presents to the office today for HPI <Angle Wells - Last Filed: 12/21/20 14:18> HPI HPI: ATA DE LA TORRE, is a 70 M who presents to the office today for <Dr. Bronson Jacobson MD - Last Filed: 12/21/20 14:54> HPI Surgical H&P: Yes HPI: Patient is a 70-year-old male here for colon mass. The patient had colonoscopy for blood in his stool which revealed a large mass in the cecum. Patient is not currently having any abdominal pain or issues other than the bleeding. ROS <Angle Wells - Last Filed: 12/21/20 14:18> General General: Yes fatigue; No weight change, appetite, colon cancer, breast cancer or weakness HEENT HEENT: No difficulty swallowing, eye injury, eye surgery, swollen glands or hoarseness Endo Endocrine: Yes diabetes mellitus; No thyroid disease, thyroid cancer, Hair loss, heat intolerance or cold intolerance Musc Musculoskeletal: Yes back problems and arthritis; No rheumatoid arthritis, gout or joint pain Cardio Cardiovascular: Yes heart disease and high blood pressure; No murmur, pacemaker, atrial fibrillation, heart attack, heart stent, palpitations, shortness of breat with exertion or chest pain Psych Psychiatric: No depression, anxiety or hearing voices Resp Respiratory: No shortness of breath, No sleep apnea, No cough, No COPD, No asthma, No emphysema and No wheezing Gastro Gastrointestinal: Yes abdominal pain, No nausea or vomiting, Yes diarrhea, Yes constipation, Yes blood in stool, Yes acid reflux, Yes hemorrhoids, Yes ulcers, No gallbladder problem and Yes black,tarry stools Aidan Hematologic: No blood thinners, No blood disorders, No bleeding, No anemia and No blood clots Neuro Neurologic: No weakness <Dr. Bronson Jacobson MD - Last Filed: 12/21/20 14:54> Cardio Cardiovascular: Yes heart disease; No murmur or atrial fibrillation Exam <Angle Wells - Last Filed: 12/21/20 14:18> Cardio Heart Sounds: no murmurs <Dr. Bronson Jacobson MD - Last Filed: 12/21/20 14:54> Const General: cooperative Orientation: alert and oriented x3 Resp Effort & Inspection: normal respiratory effort Auscultation: clear to auscultation bilaterally Cardio Rate: regular rate Rhythm: regular rhythm Heart Sounds: no murmurs GI Inspection: non-distended Palpation: soft and nontender Assessment and Plan <Angle Wells - Last Filed: 12/21/20 14:18> Assessment and Plan (1) Adenocarcinoma: Status: Acute Plan Details Other Medications: New: metronidazole (Flagyl) 500 mg PO 1 tab at 1300, 1400, 2300 night before surgery; 3 tabs 0RF neomycin 500 mg PO, 2 tabs at 1300, 1400, 2300 night before surgery; 6 tabs 0RF <Dr. Bronson Jacobson MD - Last Filed: 12/21/20 14:54> Assessment and Plan (1) Colon cancer: Plan: The patient was found to have colon cancer in the cecum. He had a CEA and CT scan. CT scan revealed the colon mass with no signs of metastasis other than some enlarged lymph nodes in the ileocecal area. The patient CEA was elevated. I discussed laparoscopic right hemicolectomy with the patient in detail. I discussed the procedure as well as the risks including not limited to bleeding, infection, injury to surrounding organs such as the ureter, bladder, other bowel. I also discussed the risk of anastomotic leak and conversion to open surgery. The patient agrees and is willing to proceed with laparoscopic right hemicolectomy and he was provided with bowel prep instructions as well as neomycin and Flagyl. Bronson Jacobson MD Pager: [facility] [address] [place] [address] [address] [place] [address] Office: Coding Level of Care Code Off vis,est,level 3 Diagnoses Adenocarcinoma C80.1 Colon cancer C18.9
[2021-01-02] MEDS: Gabapentin 600 MG Tablet PO (09:18)
[2021-01-02] MEDS: Acetaminophen 500 MG Tablet 1000 MG PO ×3 (09:18→23:56)
[2021-01-02] MEDS: Lactated Ringers 1,000 ML 40 ML IV ×2 (09:33→13:30)
[2021-01-02 10:01] LABS: Bedside Glucose 239 mg/dL (70-110)
[2021-01-02] MEDS: Insulin Lispro 100 UNIT/ML INSULN.PEN SC ×4 (10:03→21:38)
--- NOTE | 2021-01-02 10:10 | PCM.HP.BLA ---
History and Physical Date of Admission: 01/02/21 Intake <Angle Wells - Last Filed: 12/21/20 14:18> Vital Signs 12/21/20 14:02 12/21/20 14:07 Height 6 ft Weight: 242 lb BMI 32.8 32.8 BP 145/78 H Blood Pressure Location Rt brachial Position Sitting Respiration 16 Pulse 75 Pulse Source Monitor Temp 97.1 F L Temp Source Temporal Pulse Oximetry (%) 98 Oxygen Delivery Method room air Intake Visit Reasons: C-Scope CResults & Cat Scan Results Chief Complaint: Discuss CT Scan and c-scope Wine Blender Required: No Is patient in pain?: No Allergies Elcozim-Rce-Gjw Reductase Inhibitor Adverse Reaction (Verified 12/21/20 14:07) Other Medications acetaminophen 1,300 mg PO BID PRN PRN 10/27/20 [History Confirmed 12/21/20] aspirin 81 mg PO DAILY@0800 10/27/20 [History Confirmed 12/21/20] esomeprazole magnesium 40 mg PO DAILY 10/27/20 [History Confirmed 12/21/20] ezetimibe 10 mg PO DAILY 10/27/20 [History Confirmed 12/21/20] ferrous sulfate 325 mg PO TID #90 tab 10/27/20 [Rx Confirmed 12/21/20] fluticasone propionate 2 spray NASAL DAILY 10/27/20 [History Confirmed 12/21/20] goldenseal 325 mg PO DAILY 10/27/20 [History Confirmed 12/21/20] multivitamin 1 tab PO DAILY 10/27/20 [History Confirmed 12/21/20] sulfamethoxazole-trimethoprim 1 tab PO DAILY 10/27/20 [History Confirmed 12/21/20] tadalafil 5 mg PO DAILY 10/27/20 [History Confirmed 12/21/20] lisinopril 5 mg tablet 10 mg PO DAILY tablet 12/01/20 [History Confirmed 12/21/20] metronidazole 500 mg tablet 500 mg PO .COMPLEX #3 tab 12/21/20 [Rx Confirmed 12/21/20] neomycin 500 mg tablet 500 mg PO .COMPLEX #6 tab 12/21/20 [Rx Confirmed 12/21/20] <Dr. Bronson Jacobson MD - Last Filed: 12/21/20 14:54> Vital Signs 12/21/20 14:02 12/21/20 14:07 Height 6 ft Weight: 242 lb BMI 32.8 32.8 BP 145/78 H Blood Pressure Location Rt brachial Position Sitting Respiration 16 Pulse 75 Pulse Source Monitor Temp 97.1 F L Temp Source Temporal Pulse Oximetry (%) 98 Oxygen Delivery Method room air PFS <Angle Wells - Last Filed: 12/21/20 14:18> Medical History (Updated 12/21/20 @ 14:[address] 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 BPH (benign prostatic hyperplasia) CAD (coronary artery disease) Chronic neck pain Chronic sinusitis GERD (gastroesophageal reflux disease) History of MRSA infection History of neck injury History of prostate cancer Hyperlipidemia Hypertension Uncontrolled type 2 diabetes mellitus Surgical History (Updated 12/21/20 @ 14:14 by Angle Wells) History of colonoscopy (~2010) History of heart bypass surgery (~2010) History of neck surgery (~2017) History of prostatectomy (~2010) Family History (Updated 12/01/20 @ 11:46 by Gabbi Magana) Other Cancer Heart disease Hypertension Social History (Updated 12/01/20 @ 12:[address] Bronson Jacobson MD) Smoking Status: Former smoker HPI <Angle Wells - Last Filed: 12/21/20 14:18> HPI HPI: ATA DE LA TORRE, is a 70 M who presents to the office today for HPI <Angle Wells - Last Filed: 12/21/20 14:18> HPI HPI: ATA DE LA TORRE, is a 70 M who presents to the office today for <Dr. Bronson Jacobson MD - Last Filed: 12/21/20 14:54> HPI Surgical H&P: Yes HPI: Patient is a 70-year-old male here for colon mass. The patient had colonoscopy for blood in his stool which revealed a large mass in the cecum. Patient is not currently having any abdominal pain or issues other than the bleeding. ROS <Angle Wells - Last Filed: 12/21/20 14:18> General General: Yes fatigue; No weight change, appetite, colon cancer, breast cancer or weakness HEENT HEENT: No difficulty swallowing, eye injury, eye surgery, swollen glands or hoarseness Endo Endocrine: Yes diabetes mellitus; No thyroid disease, thyroid cancer, Hair loss, heat intolerance or cold intolerance Musc Musculoskeletal: Yes back problems and arthritis; No rheumatoid arthritis, gout or joint pain Cardio Cardiovascular: Yes heart disease and high blood pressure; No murmur, pacemaker, atrial fibrillation, heart attack, heart stent, palpitations, shortness of breat with exertion or chest pain Psych Psychiatric: No depression, anxiety or hearing voices Resp Respiratory: No shortness of breath, No sleep apnea, No cough, No COPD, No asthma, No emphysema and No wheezing Gastro Gastrointestinal: Yes abdominal pain, No nausea or vomiting, Yes diarrhea, Yes constipation, Yes blood in stool, Yes acid reflux, Yes hemorrhoids, Yes ulcers, No gallbladder problem and Yes black,tarry stools Aidan Hematologic: No blood thinners, No blood disorders, No bleeding, No anemia and No blood clots Neuro Neurologic: No weakness <Dr. Bronson Jacobson MD - Last Filed: 12/21/20 14:54> Cardio Cardiovascular: Yes heart disease; No murmur or atrial fibrillation Exam <Angle Wells - Last Filed: 12/21/20 14:18> Cardio Heart Sounds: no murmurs <Dr. Bronson Jacobson MD - Last Filed: 12/21/20 14:54> Const General: cooperative Orientation: alert and oriented x3 Resp Effort & Inspection: normal respiratory effort Auscultation: clear to auscultation bilaterally Cardio Rate: regular rate Rhythm: regular rhythm Heart Sounds: no murmurs GI Inspection: non-distended Palpation: soft and nontender Assessment and Plan <Angle Wells - Last Filed: 12/21/20 14:18> Assessment and Plan (1) Adenocarcinoma: Status: Acute Plan Details Other Medications: New: metronidazole (Flagyl) 500 mg PO 1 tab at 1300, 1400, 2300 night before surgery; 3 tabs 0RF neomycin 500 mg PO, 2 tabs at 1300, 1400, 2300 night before surgery; 6 tabs 0RF <Dr. Bronson Jacobson MD - Last Filed: 12/21/20 14:54> Assessment and Plan (1) Colon cancer: Plan: The patient was found to have colon cancer in the cecum. He had a CEA and CT scan. CT scan revealed the colon mass with no signs of metastasis other than some enlarged lymph nodes in the ileocecal area. The patient CEA was elevated. I discussed laparoscopic right hemicolectomy with the patient in detail. I discussed the procedure as well as the risks including not limited to bleeding, infection, injury to surrounding organs such as the ureter, bladder, other bowel. I also discussed the risk of anastomotic leak and conversion to open surgery. The patient agrees and is willing to proceed with laparoscopic right hemicolectomy and he was provided with bowel prep instructions as well as neomycin and Flagyl. Bronson Jacobson MD Pager: [facility] [address] [place] [address] [address] [place] [address] Office: I have seen and examined the patient and there are no changes.
[2021-01-02] MEDS: BUPIVACAINE LIPOSOME/PF 20 ML VIAL OPERA.SITE (11:31)
[2021-01-02 13:55] LABS: Bedside Glucose 191 mg/dL (70-110)
--- NOTE | 2021-01-02 14:10 | PCM.OPRPT ---
Problems Associated Problem List Diagnoses (1) Colon cancer: Report of Operation Date of Procedure: 01/02/21 Pre-Operative Diagnosis: Colon cancer of the cecum Post-Operative Diagnosis: Same Surgery/Procedure Performed:: Laparoscopic right hemicolectomy with anastomosis Specimen's removed: Right hemicolon Description of Procedure: Patient was brought back the operating room and general anesthesia was used. The abdomen was prepped draped in usual sterile fashion. A midline incision was made superior to the patient's prior incision and deepened to the fascia which was elevated and incised. A finger sweep was performed and a port was placed into the abdomen. The abdomen was insufflated to 15 mmHg. The patient was placed in Trendelenburg position and under laparoscopic guidance a TAP block was performed bilaterally. The TAP blocks were performed with a mixture of Exparel and saline. Next under direct visualization a left lateral 5 mm port was placed as well as an inferior midline 5 mm port. The right colon was identified. The mass was identified. The lateral attachments to the appendix and terminal ileum were lysed mobilizing the terminal ileum. The dissection was carried superiorly along the white line of Toldt for the ascending colon. The hepatic flexure was then mobilized using Enseal. Next the midline incision was elongated inferiorly and superiorly including the midline hernia from his prostatectomy. Electrocautery was used to maintain hemostasis. A wound protector was placed. The right colon was delivered through the wound protector and the terminal ileum was identified. A CINTHYA stapler was used to divide the terminal ileum 15 cm proximal to the ileocecal valve. Next the pedicle to the right colon was identified and cautery was used to take down the peritoneum. The artery and vein were identified and clamped with right angle clamps. The artery and vein were each suture ligated with 0 silk suture and ligated once more using an 0 silk tie. There was good hemostasis. Next the mesentery to the colon was divided proximally until the ileum was reached. It was then divided distally until a suitable mid middle colic vessel was identified and spared. Just proximal to this the colon was divided using a CINTHYA stapler. Next the corner of the staple line for the terminal ileum and colon were removed sharply and a 75 CINTHYA stapler used used to create an ileocolic anastomosis in a [id number] functional end-to-end fashion. [place] clamps were then used to grasp the enterostomy and the staple line was inspected and had good hemostasis. Next a 60 [place] stapler was used to close the enterostomy. A crotch suture using 3-0 silk suture was then placed where the staple line ended. The mesenteric defect was closed using a running 3-0 Vicryl suture. The anastomosis and mesentery were inspected once more and had good hemostasis and appeared viable. The anastomosis was delivered back into the abdomen and the abdomen was irrigated and suctioned dry. The wound protector was removed and the omentum was placed over the anastomosis and the bowel. All staff in the room changed gown and gloves. Next the fascia was grasped and the fascia was closed using a running 0 PDS suture starting at the top and bottom meeting in the middle. The subcutaneous tissue was irrigated and suctioned dry. The skin was closed with interrupted 4-0 Monocryl sutures as well as Steri-Strips and bandages. Patient was then awoken and taken to PACU in stable condition and tolerated the procedure well. Admit VTE Documentation VTE Present on Admission: No VTE Mechan Device Prophylaxis: SCD's
[2021-01-02] MEDS: Ketorolac 15 MG/ML Vial IV ×2 (18:08→23:56)
[2021-01-02 18:21] LABS: Bedside Glucose 170 mg/dL (70-110)
[2021-01-02] MEDS: Docusate Sodium 100 MG Capsule PO (21:34)
[2021-01-02 23:31] LABS: Bedside Glucose 164 mg/dL (70-110)
[2021-01-03] VITALS (7 sets, daily range): BP systolic 132–160; BP diastolic 63–83; PULSE 59–71; RESP 18; TEMP 36.6–37; O2SAT 94–97
[2021-01-03] MEDS: 0.9% Saline Lock 10 ML Syringe IV (00:01)
[2021-01-03] MEDS: Acetaminophen 500 MG Tablet 1000 MG PO ×4 (05:47→23:02)
[2021-01-03] MEDS: Ketorolac 15 MG/ML Vial IV ×4 (05:48→23:02)
[2021-01-03] MEDS: Lactated Ringers 1,000 ML 40 ML IV (05:56)
[2021-01-03] MEDS: Insulin Lispro 100 UNIT/ML INSULN.PEN SC ×3 (06:43→21:28)
[2021-01-03 06:50] LABS: Bedside Glucose 157 mg/dL (70-110)
[2021-01-03 07:10] LABS: Hemoglobin 9.8 g/dL (13.0-16.5); Mean Corp Hgb Conc 29.7 g/dL (32-36); Mean Corpuscular Hgb 25.7 pg (27.0-32.0); Mean Corpuscular Volume 86.4 fL (80-94); Mean Platelet Vol. 10.4 fl (6.2-12.0); Platelet Count 161 K/mm3 (150-450); RBC Distribution Width CV 16.9 % (11.6-14.6); Red Blood Count 3.82 M/mm3 (4.6-6.2); White Blood Count 6.5 K/mm3 (4.4-11.0)
[2021-01-03 07:38] LABS: Anion Gap 5 (5-15); BUN 21 mg/dL (7-18); BUN/Creat Ratio 15.1 RATIO (10-20); Calcium,Total 8.6 mg/dL (8.5-10.1); Chloride 103 mmol/L (98-107); Creatinine, Serum 1.39 mg/dL (0.70-1.30); EST Glomerular Filtration Rate 54 mL/min (>60); Est Glom Filt Rate - Afr Amer 65 mL/min (>60); Estimated Creatinine Clearance 54.28 ml/min; Glucose 148 mg/dL (74-106); Potassium 4.4 mmol/L (3.5-5.1); Sodium Level 135 mmol/L (136-145)
[2021-01-03] MEDS: Lisinopril 10 MG Tablet PO (07:58)
[2021-01-03] MEDS: Docusate Sodium 100 MG Capsule PO ×2 (07:58→21:27)
[2021-01-03] MEDS: Aspirin E.C. 81 MG Tablet PO (07:58)
[2021-01-03] MEDS: Pantoprazole Sodium 40 MG Tablet PO (07:58)
[2021-01-03] MEDS: Ezetimibe 10 MG Tablet PO (07:59)
--- NOTE | 2021-01-03 08:01 | PN.SURG_ITS ---
Subjective Subjective: Patient tolerating clear liquids with no nausea or vomiting. Not passing flatus yet but he feels rumbling. His pain is well controlled. Objective Data Objective Data Vital Signs: Vital Signs Temp Pulse Resp BP Pulse Ox 98.6 F 62 18 156/83 H 97 01/03/21 05:52 01/03/21 05:52 01/03/21 05:52 01/03/21 05:52 01/03/21 05:52 Oxygen Flow Rate (L/min) 6 Oxygen Delivery Method Room Air Weight: 240 lb Body Mass Index (BMI) 32.5 Intake & Output: Intake and Output for Last 24 Hours 01/01/21 01/02/21 01/03/21 23:59 23:59 23:59 Intake Total 1206.5 / 1906.5 900 / 900 Balance 1206.5 / 1906.5 900 / 900 Lab / Micro Data Result Diagrams: 01/03/21 06:10 01/03/21 06:10 Labs: Laboratory Results - last 24 hr 01/02/21 01/02/21 01/02/21 09:44 13:51 18:17 WBC RBC Hgb Hct MCV MCH MCHC RDW Std Deviation RDW Coeff of Arleen Plt Count MPV Sodium Potassium Chloride Carbon Dioxide Anion Gap BUN Creatinine Estim Creat Clear Calc Est GFR (MDRD) Af Amer Est GFR (MDRD) Non-Af BUN/Creatinine Ratio Glucose Calcium POC Glucose 239 H 191 H 170 H 01/02/21 01/03/21 01/03/21 21:37 06:10 06:10 WBC 6.5 RBC 3.82 L Hgb 9.8 L Hct 33.0 L MCV 86.4 MCH 25.7 L MCHC 29.7 L RDW Std Deviation 53.0 H RDW Coeff of Arleen 16.9 H Plt Count 161 MPV 10.4 Sodium 135 L Potassium 4.4 Chloride 103 Carbon Dioxide 27.0 Anion Gap 5 BUN 21 H Creatinine 1.39 H Estim Creat Clear Calc 54.28 Est GFR (MDRD) Af Amer 65 Est GFR (MDRD) Non-Af 54 L BUN/Creatinine Ratio 15.1 Glucose 148 H Calcium 8.6 POC Glucose 164 H 01/03/21 06:42 WBC RBC Hgb Hct MCV MCH MCHC RDW Std Deviation RDW Coeff of Arleen Plt Count MPV Sodium Potassium Chloride Carbon Dioxide Anion Gap BUN Creatinine Estim Creat Clear Calc Est GFR (MDRD) Af Amer Est GFR (MDRD) Non-Af BUN/Creatinine Ratio Glucose Calcium POC Glucose 157 H Physical Exam Narrative Abdomen is soft and nondistended. It is mildly tender the incision. The incis ion is clean and dry. Assessment & Plan Assessment/Plan (1) Colon cancer: QUALIFIERS: Colon location: ascending Qualified Code(s): C18.2 - Malignant neoplasm of ascending colon PLAN: The patient had laparoscopic right hemicolectomy for colon cancer of the cecum yesterday. The patient is tolerating a clear liquid diet and his pain is well controlled. I will advance him to a regular diet once he starts passing flatus. The patient's hemoglobin is stable. Resume home medications. Bronson Jacobson MD Pager: [facility] [address] [place] [address], [address] [place] [phone] Office:
[2021-01-03] MEDS: TADALAFIL 5 MG TABLET PO (10:31)
--- NOTE | 2021-01-03 10:40 | CASEMGMT ---
RN PAWAN Face to Face with patient for initial transition planning/care coordination assessment. RN CM introduced self and role at [facility]. Patient lying in bed, alert and oriented, significant other at bedside. Patient willing to participate in assessment and is able to answer all questions appropriately. Care providers, pharmacy, and demographics verified. Patient wishes to discharge home, denies need for home health at this time. Patient states he has no further needs or concerns at this time. CM to follow for discharge planning needs that may arise. PCP: Thuan Specialists: Kavon Pritchett Pharmacy: [facility] Insurance: [employer] Prescription Benefit: yes Living Will/HPOA: yes, significant other LNOK: significant other Living Arrangements: Patient lives with significant other in a 2 story home with bed and bath on first floor. Patient states he is independent at home. Transportation: self, significant other DME/HHC: Patient denies DME. Gaetano has previously had [facility] in the past. Disposition Plan: Patient to discharge home with family support and follow-up plans in place. Mary Kay ANGUIANO, RN, CM
[2021-01-03 11:21] LABS: Bedside Glucose 173 mg/dL (70-110)
[2021-01-03] MEDS: Ensure Clear 120 ML Liquid PO ×2 (12:57→17:29)
--- NOTE | 2021-01-03 15:49 | CASEMGMT ---
Social Work Note SW received consult that pt would like to complete LW, SW will follow up with tomorrow. Mary Kay Strickland ACID DIPPER, TIPPLE ENGINEER
--- NOTE | 2021-01-03 15:59 | PCM.DC.SUM ---
Documented by User: Dr. Bronson Jacobson MD 01/10/21 09:10 Providers Date of Admission: 01/02/21 Primary Care Physician: Dr. Jose Luis Larose MD Reason For Visit: LAP R SHARMILA COLECTOMY Medications at Discharge Home Medications acetaminophen 1,300 mg PO BID PRN PRN 10/27/20 aspirin 81 mg PO DAILY@0800 10/27/20 esomeprazole magnesium 40 mg PO DAILY 10/27/20 ezetimibe 10 mg PO DAILY 10/27/20 fluticasone propionate 2 spray NASAL DAILY 10/27/20 goldenseal 325 mg PO DAILY 10/27/20 multivitamin 1 tab PO DAILY 10/27/20 tadalafil 5 mg PO DAILY 10/27/20 lisinopril 5 mg tablet 10 mg PO DAILY tablet 12/01/20 ferrous sulfate 325 mg PO TID 12/26/20 Hospital Course Operations colectomy Procedures None Summary of Care Provided Hospital Course: The patient presented for elective right hemicolectomy due to a cancer in the cecum. Patient tolerated the procedure well was brought to PACU and then to the floor and started on a clear liquid diet. Once he was passing flatus he advance to a regular diet and then discharged home in stable condition. ABG / Lab / Microbiology Data Result Diagrams: 01/05/21 06:00 01/05/21 06:00 Laboratory: Laboratory Results - last 24 hr 01/02/21 01/02/21 01/03/21 18:17 21:37 06:10 WBC 6.5 RBC 3.82 L Hgb 9.8 L Hct 33.0 L MCV 86.4 MCH 25.7 L MCHC 29.7 L RDW Std Deviation 53.0 H RDW Coeff of Arleen 16.9 H Plt Count 161 MPV 10.4 Sodium Potassium Chloride Carbon Dioxide Anion Gap BUN Creatinine Estim Creat Clear Calc Est GFR (MDRD) Af Amer Est GFR (MDRD) Non-Af BUN/Creatinine Ratio Glucose Calcium POC Glucose 170 H 164 H 01/03/21 01/03/21 01/03/21 06:10 06:42 11:10 WBC RBC Hgb Hct MCV MCH MCHC RDW Std Deviation RDW Coeff of Arleen Plt Count MPV Sodium 135 L Potassium 4.4 Chloride 103 Carbon Dioxide 27.0 Anion Gap 5 BUN 21 H Creatinine 1.39 H Estim Creat Clear Calc 54.28 Est GFR (MDRD) Af Amer 65 Est GFR (MDRD) Non-Af 54 L BUN/Creatinine Ratio 15.1 Glucose 148 H Calcium 8.6 POC Glucose 157 H 173 H D/C Instructions Discharge Diet: Light diet - advance as tolerated Discharge Activity: May Not Drive (No driving for 1 week or while taking narcotic pain meds.) May shower in (days): 1 Lifting Restricted to (Lbs): 20 (for 4 weeks) Call your doctor if your incision/area has: Continuous Slow Oozing, Sudden Increased Bleeding, Increased Pain/ Swelling, Increased Redness, Foul Smelling Discharge and Swelling at the incision site Call your doctor if you observe: Fever of 101 or Higher and Inability to have a bowel movement Suture Line Care: Avoid Pulling/Pushing and Avoid Pinching/Bending Remove Dressing in: 2 days Cleanse incision/area with: Soap & Water Please Follow Up With: Bronson Jacobson MD When: Please call to schedule 2 week follow up appointment. [phone] Meaningful Use Info Meaningful Use Diagnoses (Choose all that apply): None applicable Discharge Plan Admission Admit Date/Time: 01/02/21 08:44 Attending Provider: Bronson Jacobson Primary Care Provider: Jose Luis Larose Discharge Orders/Prescriptions Prescriptions: Continued multivitamin 1 TABLET tablet 1 tab PO DAILY RF: 0 aspirin 81 MG tablet 81 mg PO DAILY@0800 RF: 0 acetaminophen 650 MG tablet extended release 1,300 mg PO BID PRN PRN (Reason: ARTHRITIS) RF: 0 esomeprazole magnesium 40 MG capsule,delayed release(DR/EC) 40 mg PO DAILY RF: 0 fluticasone propionate 16 GM spray,suspension 2 spray NASAL DAILY RF: 0 goldenseal 325 MG capsule 325 mg PO DAILY RF: 0 ezetimibe 10 MG tablet 10 mg PO DAILY RF: 0 tadalafil 5 MG tablet 5 mg PO DAILY RF: 0 lisinopril 5 mg tablet 10 mg PO DAILY RF: 0 ferrous sulfate 325 MG tablet 325 mg PO TID RF: 0 Discontinued sulfamethoxazole-trimethoprim 1 TABLET tablet 1 tab PO DAILY RF: 0 metronidazole [Flagyl] 500 mg tablet 500 mg PO .COMPLEX RF: 0 neomycin 500 mg tablet 500 mg PO .COMPLEX RF: 0 Referrals / Follow Up: Jose Luis Larose MD [Primary Care Provider] - Disposition Disposition (needs filled in before D/C Order can be placed): Home, self care Documented by User: Dr. Jodi Ling MD 01/06/21 09:01 Providers Date of Admission: 01/02/21 Reason For Visit: LAP R SHARMILA COLECTOMY Diagnosis Discharge Diagnosis (1) Colon cancer: Status: Acute Code(s): C18.9 - Malignant neoplasm of colon, unspecified Qualifiers: Colon location: ascending Qualified Code(s): C18.2 - Malignant neoplasm of ascending colon Medications at Discharge Home Medications acetaminophen 1,300 mg PO BID PRN PRN 10/27/20 aspirin 81 mg PO DAILY@0800 10/27/20 esomeprazole magnesium 40 mg PO DAILY 10/27/20 ezetimibe 10 mg PO DAILY 10/27/20 fluticasone propionate 2 spray NASAL DAILY 10/27/20 goldenseal 325 mg PO DAILY 10/27/20 multivitamin 1 tab PO DAILY 10/27/20 tadalafil 5 mg PO DAILY 10/27/20 lisinopril 5 mg tablet 10 mg PO DAILY tablet 12/01/20 ferrous sulfate 325 mg PO TID 12/26/20 Physical Exam Narrative Abdomen: Soft, nondistended, mild tenderness palpation near incision, incision healing well with Steri-Strips, ecchymosis resolving at midline incision Resp normal respiratory effort Cardio regular rate Psych affect normal ABG / Lab / Microbiology Data Result Diagrams: 01/05/21 06:00 01/05/21 06:00 Discharge Plan Admission Admit Date/Time: 01/02/21 08:44 Attending Provider: Bronson Jacobson Primary Care Provider: Jose Luis Larose Discharge Orders/Prescriptions Prescriptions: Continued multivitamin 1 TABLET tablet 1 tab PO DAILY RF: 0 aspirin 81 MG tablet 81 mg PO DAILY@0800 RF: 0 acetaminophen 650 MG tablet extended release 1,300 mg PO BID PRN PRN (Reason: ARTHRITIS) RF: 0 esomeprazole magnesium 40 MG capsule,delayed release(DR/EC) 40 mg PO DAILY RF: 0 fluticasone propionate 16 GM spray,suspension 2 spray NASAL DAILY RF: 0 goldenseal 325 MG capsule 325 mg PO DAILY RF: 0 ezetimibe 10 MG tablet 10 mg PO DAILY RF: 0 tadalafil 5 MG tablet 5 mg PO DAILY RF: 0 lisinopril 5 mg tablet 10 mg PO DAILY RF: 0 ferrous sulfate 325 MG tablet 325 mg PO TID RF: 0 Discontinued sulfamethoxazole-trimethoprim 1 TABLET tablet 1 tab PO DAILY RF: 0 metronidazole [Flagyl] 500 mg tablet 500 mg PO .COMPLEX RF: 0 neomycin 500 mg tablet 500 mg PO .COMPLEX RF: 0 Referrals / Follow Up: Jose Luis Larose MD [Primary Care Provider] - Disposition Disposition (needs filled in before D/C Order can be placed): Home, self care
[2021-01-03 17:26] LABS: Bedside Glucose 155 mg/dL (70-110)
[2021-01-03] MEDS: Ondansetron ODT 4 MG Tablet PO (17:26)
[2021-01-03 21:55] LABS: Bedside Glucose 152 mg/dL (70-110)
[2021-01-04 01:57] VITALS: BP 148/70; PULSE 77; RESP 18; TEMP 36.9; O2SAT 96
[2021-01-04] MEDS: Acetaminophen 500 MG Tablet 1000 MG PO ×4 (05:03→23:34)
--- NOTE | 2021-01-04 06:39 | PN.SURG_ITS ---
Subjective Subjective The patient became nauseous yesterday afternoon. He is not passing any flatus yet. His diet was stopped. Objective Data Objective Data Vital Signs: Vital Signs Temp Pulse Resp BP Pulse Ox 98.4 F 77 18 148/70 H 96 01/04/21 01:57 01/04/21 01:57 01/04/21 01:57 01/04/21 01:57 01/04/21 01:57 Oxygen Flow Rate (L/min) 6 Oxygen Delivery Method Room Air Weight: 240 lb 1.334 oz Body Mass Index (BMI) 32.5 Intake & Output: Intake and Output for Last 24 Hours 01/02/21 01/03/21 01/04/21 23:59 23:59 23:59 Intake Total 1206.5 / 1906.5 2507.33 / 2507.33 926 / 926 Balance 1206.5 / 1906.5 2507.33 / 2507.33 926 / 926 Lab / Micro Data Result Diagrams: 01/03/21 06:10 01/03/21 06:10 Labs: Laboratory Results - last 24 hr 01/03/21 01/03/21 01/03/21 06:10 06:10 06:42 WBC 6.5 RBC 3.82 L Hgb 9.8 L Hct 33.0 L MCV 86.4 MCH 25.7 L MCHC 29.7 L RDW Std Deviation 53.0 H RDW Coeff of Arleen 16.9 H Plt Count 161 MPV 10.4 Sodium 135 L Potassium 4.4 Chloride 103 Carbon Dioxide 27.0 Anion Gap 5 BUN 21 H Creatinine 1.39 H Estim Creat Clear Calc 54.28 Est GFR (MDRD) Af Amer 65 Est GFR (MDRD) Non-Af 54 L BUN/Creatinine Ratio 15.1 Glucose 148 H Calcium 8.6 POC Glucose 157 H 01/03/21 01/03/21 01/03/21 11:10 16:33 21:28 WBC RBC Hgb Hct MCV MCH MCHC RDW Std Deviation RDW Coeff of Arleen Plt Count MPV Sodium Potassium Chloride Carbon Dioxide Anion Gap BUN Creatinine Estim Creat Clear Calc Est GFR (MDRD) Af Amer Est GFR (MDRD) Non-Af BUN/Creatinine Ratio Glucose Calcium POC Glucose 173 H 155 H 152 H Physical Exam Const oriented x3 and no apparent distress GI soft to palpation and non-tender Inspection: abdominal distention Assessment & Plan Assessment/Plan (1) Mass of colon: PLAN: The patient became more distended and nauseous yesterday afternoon. His diet was stopped. He does not know if he is passing flatus this morning. His bowel sounds are hypoactive. I will check labs and I will await more significant bowel function before resuming clear liquids and advancing his diet. Start Lovenox. Bronson Jacobson MD Pager: [facility] [address] [place] [address] [address] [place] [address] Office:
[2021-01-04 06:40] LABS: Bedside Glucose 143 mg/dL (70-110)
[2021-01-04 06:55] LABS: Absolute Lymphocyte Count 1.07 X10^3/uL (0.83-4.51); Absolute Neutrophil Count 4.5 X10^3/uL (2.0-7.7); Basophil# 0.04 X10^3/uL; Basophil% 0.6 % (0-1); Eosinophil# 0.18 X10^3/uL; Eosinophils% 2.9 % (0-5); Hemoglobin 10.1 g/dL (13.0-16.5); Lymphocyte # 1.07 X10^3/ul (0.83-4.51); Lymphocyte % 17.2 % (19-41); Mean Corp Hgb Conc 30.6 g/dL (32-36); Mean Corpuscular Hgb 26.2 pg (27.0-32.0); Mean Corpuscular Volume 85.5 fL (80-94); Mean Platelet Vol. 10.5 fl (6.2-12.0); Monocyte# 0.44 X10^3/uL; Monocyte% 7.1 % (0-10); NRBC Flagged by Analyzer 0 % (0-5); Neutrophil # 4.48 X10^3/uL (2.7-7.7); Neutrophil % 71.9 % (47-70); Platelet Count 172 K/mm3 (150-450); RBC Distribution Width SD 50.4 fl (35.1-43.9); Red Blood Count 3.86 M/mm3 (4.6-6.2); White Blood Count 6.2 K/mm3 (4.4-11.0)
[2021-01-04 07:12] LABS: Anion Gap 4 (5-15); BUN 17 mg/dL (7-18); BUN/Creat Ratio 15.5 RATIO (10-20); Calcium,Total 8.6 mg/dL (8.5-10.1); Chloride 108 mmol/L (98-107); EST Glomerular Filtration Rate 70 mL/min (>60); Est Glom Filt Rate - Afr Amer 85 mL/min (>60); Estimated Creatinine Clearance 68.59 ml/min; Glucose 147 mg/dL (74-106); Potassium 4.4 mmol/L (3.5-5.1); Sodium Level 137 mmol/L (136-145)
[2021-01-04 07:51] VITALS: O2SAT 95
[2021-01-04 08:08] VITALS: BP 143/74; PULSE 73; RESP 16; TEMP 37.1; O2SAT 96
[2021-01-04] MEDS: Lisinopril 10 MG Tablet PO (09:24)
[2021-01-04] MEDS: Docusate Sodium 100 MG Capsule PO ×2 (09:24→23:38)
[2021-01-04] MEDS: TADALAFIL 5 MG TABLET PO (09:24)
[2021-01-04] MEDS: Pantoprazole Sodium 40 MG Tablet PO (09:24)
[2021-01-04] MEDS: Ezetimibe 10 MG Tablet PO (09:24)
[2021-01-04] MEDS: Aspirin E.C. 81 MG Tablet PO (09:24)
--- NOTE | 2021-01-04 10:30 | CASEMGMT ---
Social Work Note SW in to speak with pt regarding LW. Pt's Significant other Ladonna present in room. Pt gave this worker permission to speak to him in front of his guest. SW asked pt about LW. Pt confirms he wishes to complete LW at this time and gave permission for Ladonna to be present in room. Pt completed LW. SW provided pt with Original and placed copy on pt's chart. Pt denied additional needs or concerns at this time. Mary Kay Strickland SECOND HAND, EXECUTIVE ADMINISTRATOR
[2021-01-04 11:41] LABS: Bedside Glucose 146 mg/dL (70-110)
[2021-01-04 14:38] VITALS: BP 157/72; PULSE 81; RESP 16; TEMP 36.9; O2SAT 98
[2021-01-04] MEDS: 0.9% Saline Lock 10 ML Syringe IV (16:39)
[2021-01-04 17:10] LABS: Bedside Glucose 136 mg/dL (70-110)
[2021-01-04 20:38] VITALS: BP 152/88; PULSE 81; RESP 16; TEMP 37; O2SAT 98
[2021-01-04 23:45] LABS: Bedside Glucose 124 mg/dL (70-110)
[2021-01-05 02:55] VITALS: BP 125/65; PULSE 73; RESP 16; TEMP 36.9; O2SAT 97
[2021-01-05 06:06] LABS: Absolute Lymphocyte Count 1.41 X10^3/uL (0.83-4.51); Absolute Neutrophil Count 4.5 X10^3/uL (2.0-7.7); Basophil# 0.06 X10^3/uL; Basophil% 0.9 % (0-1); Eosinophil# 0.24 X10^3/uL; Eosinophils% 3.6 % (0-5); Hematocrit 34.7 % (40-54); Hemoglobin 10.6 g/dL (13.0-16.5); Lymphocyte # 1.41 X10^3/ul (0.83-4.51); Mean Corp Hgb Conc 30.5 g/dL (32-36); Mean Corpuscular Hgb 25.4 pg (27.0-32.0); Mean Corpuscular Volume 83.2 fL (80-94); Mean Platelet Vol. 9.7 fl (6.2-12.0); Monocyte# 0.51 X10^3/uL; Monocyte% 7.6 % (0-10); NRBC Flagged by Analyzer 0 % (0-5); Neutrophil % 66.8 % (47-70); Platelet Count 185 K/mm3 (150-450); RBC Distribution Width CV 15.6 % (11.6-14.6); RBC Distribution Width SD 46.7 fl (35.1-43.9); Red Blood Count 4.17 M/mm3 (4.6-6.2); White Blood Count 6.7 K/mm3 (4.4-11.0)
[2021-01-05] MEDS: Acetaminophen 500 MG Tablet 1000 MG PO ×4 (06:07→23:57)
[2021-01-05 06:29] LABS: Anion Gap 7 (5-15); BUN 14 mg/dL (7-18); BUN/Creat Ratio 14.7 RATIO (10-20); Chloride 106 mmol/L (98-107); Creatinine, Serum 0.95 mg/dL (0.70-1.30); EST Glomerular Filtration Rate 83 mL/min (>60); Est Glom Filt Rate - Afr Amer 101 mL/min (>60); Estimated Creatinine Clearance 79.42 ml/min; Glucose 127 mg/dL (74-106); Potassium 4.3 mmol/L (3.5-5.1); Sodium Level 138 mmol/L (136-145)
[2021-01-05 06:41] LABS: Bedside Glucose 134 mg/dL (70-110)
--- NOTE | 2021-01-05 07:58 | PN.SURG_ITS ---
Subjective Subjective Patient states he is starting to feel a little bit hungry but not much has not had much flatus still. Patient does claim being dehydrated states he felt much better when he got his 500 cc bolus last night. Objective Data Objective Data Vital Signs: Vital Signs Temp Pulse Resp BP Pulse Ox 98.5 F 73 16 125/65 H 97 01/05/21 02:55 01/05/21 02:55 01/05/21 02:55 01/05/21 02:55 01/05/21 02:55 Oxygen Flow Rate (L/min) 6 Oxygen Delivery Method Room Air Weight: 240 lb 1.334 oz Body Mass Index (BMI) 32.5 Intake & Output: Intake and Output for Last 24 Hours 01/03/21 01/04/21 01/05/21 23:59 23:59 23:59 Intake Total 2507.33 / 2507.33 1606 / 1606 Balance 2507.33 / 2507.33 1606 / 1606 Lab / Micro Data Result Diagrams: 01/05/21 06:00 01/05/21 06:00 Labs: Laboratory Results - last 24 hr 01/04/21 01/04/21 01/04/21 11:29 16:30 23:37 WBC RBC Hgb Hct MCV MCH MCHC RDW Std Deviation RDW Coeff of Arleen Plt Count MPV Immature Gran % (Auto) Neut % (Auto) Lymph % (Auto) [place] % (Auto) Eos % (Auto) Baso % (Auto) Absolute Neuts (auto) Absolute Lymphs (auto) Nucleated RBC % Sodium Potassium Chloride Carbon Dioxide Anion Gap BUN Creatinine Estim Creat Clear Calc Est GFR (MDRD) Af Amer Est GFR (MDRD) Non-Af BUN/Creatinine Ratio Glucose Calcium POC Glucose 146 H 136 H 124 H 01/05/21 01/05/21 01/05/21 06:00 06:00 06:10 WBC 6.7 RBC 4.17 L Hgb 10.6 L Hct 34.7 L MCV 83.2 MCH 25.4 L MCHC 30.5 L RDW Std Deviation 46.7 H RDW Coeff of Arleen 15.6 H Plt Count 185 MPV 9.7 Immature Gran % (Auto) 0.100 Neut % (Auto) 66.8 Lymph % (Auto) 21.0 [place] % (Auto) 7.6 Eos % (Auto) 3.6 Baso % (Auto) 0.9 Absolute Neuts (auto) 4.5 Absolute Lymphs (auto) 1.41 Nucleated RBC % 0 Sodium 138 Potassium 4.3 Chloride 106 Carbon Dioxide 25.0 Anion Gap 7 BUN 14 Creatinine 0.95 Estim Creat Clear Calc 79.42 Est GFR (MDRD) Af Amer 101 Est GFR (MDRD) Non-Af 83 BUN/Creatinine Ratio 14.7 Glucose 127 H Calcium 9.0 POC Glucose 134 H Physical Exam Const oriented x3 and no apparent distress Resp normal respiratory effort Cardio regular rate GI GI Narrative: Abdomen: Soft, mild distention, tender near incision only on palpation, incision is dressed. Assessment & Plan Assessment/Plan (1) Mass of colon: PLAN: Patient states that he is less bloated and has a little bit of an appetite however he has not had much flatus and not much of an appetite. Plan to give patient a 500 cc bolus of IV fluids. Once patients are to have increased bowel function or increase appetite will plan to start clears. Jodi Ling M.D. Pager: [phone] [facility] [address] [place] [address], [facility], [address] [place] [address] Office: [phone]
[2021-01-05 08:22] VITALS: BP 130/68; PULSE 74; RESP 18; TEMP 36.6; O2SAT 96
[2021-01-05] MEDS: Aspirin E.C. 81 MG Tablet PO (08:34)
[2021-01-05] MEDS: TADALAFIL 5 MG TABLET PO (08:35)
[2021-01-05] MEDS: Docusate Sodium 100 MG Capsule PO ×2 (08:35→20:28)
[2021-01-05] MEDS: Lisinopril 10 MG Tablet PO (08:35)
[2021-01-05] MEDS: Ezetimibe 10 MG Tablet PO (08:35)
[2021-01-05] MEDS: Pantoprazole Sodium 40 MG Tablet PO (08:35)
[2021-01-05] MEDS: Enoxaparin 40 MG/0.4 ML Syringe SC (09:29)
[2021-01-05 11:51] LABS: Bedside Glucose 119 mg/dL (70-110)
[2021-01-05 14:26] VITALS: BP 135/74; PULSE 75; RESP 18; TEMP 36.6; O2SAT 96
[2021-01-05] MEDS: Insulin Lispro 100 UNIT/ML INSULN.PEN SC (16:49)
[2021-01-05 16:56] LABS: Bedside Glucose 165 mg/dL (70-110)
[2021-01-05 20:22] VITALS: BP 147/79; PULSE 66; RESP 16; TEMP 36.9; O2SAT 98
[2021-01-05 20:36] LABS: Bedside Glucose 111 mg/dL (70-110)
[2021-01-06 01:33] VITALS: BP 142/72; PULSE 70; RESP 18; TEMP 36.5; O2SAT 98
[2021-01-06 06:24] VITALS: BP 136/78; PULSE 76; RESP 16; TEMP 36.8; O2SAT 96
[2021-01-06] MEDS: Acetaminophen 500 MG Tablet 1000 MG PO (06:26)
[2021-01-06 06:35] LABS: Bedside Glucose 125 mg/dL (70-110)
[2021-01-06 07:49] VITALS: BP 125/79; PULSE 68; RESP 18; TEMP 36.6; O2SAT 97
[2021-01-06] MEDS: TADALAFIL 5 MG TABLET PO (07:53)
[2021-01-06] MEDS: Aspirin E.C. 81 MG Tablet PO (07:53)
[2021-01-06] MEDS: Docusate Sodium 100 MG Capsule PO (07:54)
[2021-01-06] MEDS: Lisinopril 10 MG Tablet PO (07:54)
[2021-01-06] MEDS: Ezetimibe 10 MG Tablet PO (07:54)
[2021-01-06] MEDS: Pantoprazole Sodium 40 MG Tablet PO (07:54)
--- NOTE | 2021-01-06 08:14 | PN.SURG_ITS ---
Subjective Subjective Patient did have some diarrhea overnight, tolerated clears, prelim pathology showed 26 at 26 lymph nodes negative--patient is aware Objective Data Objective Data Vital Signs: Vital Signs Temp Pulse Resp BP Pulse Ox 97.8 F 68 18 125/79 H 97 01/06/21 07:49 01/06/21 07:49 01/06/21 07:49 01/06/21 07:49 01/06/21 07:49 Oxygen Flow Rate (L/min) 6 Oxygen Delivery Method Room Air Weight: 240 lb 1.334 oz Body Mass Index (BMI) 32.5 Intake & Output: Intake and Output for Last 24 Hours 01/04/21 01/05/21 01/06/21 23:59 23:59 23:59 Intake Total 1606 / 1606 1040 / 1040 440 / 440 Output Total 500 / 500 150 / 150 Balance 1606 / 1606 540 / 540 290 / 290 Lab / Micro Data Result Diagrams: 01/05/21 06:00 01/05/21 06:00 Labs: Laboratory Results - last 24 hr 01/05/21 01/05/21 01/05/21 11:21 16:47 20:27 POC Glucose 119 H 165 H 111 H 01/06/21 06:29 POC Glucose 125 H Physical Exam Narrative Abdomen: Soft, nondistended, mild tenderness palpation near incision, incision healing well with Steri-Strips, ecchymosis resolving at midline incision Assessment & Plan Assessment/Plan (1) Mass of colon: PLAN: Patient is tolerating clears and had bowel function. Advance to transitional diet patient tolerates will DC home today. Jodi Ling M.D. Pager: [phone] [facility] [address] [place] [address], [address] [place] [address] Office: [phone]
--- NOTE | 2021-01-06 09:36 | PHA.DC.MR ---
Pharmacy Service has performed discharge medication reconciliation for this patient. The patient's discharge medication list was reviewed for discrepancies and discrepancies were resolved. Home Medications acetaminophen 1,300 mg PO BID PRN PRN 10/27/20 aspirin 81 mg PO DAILY@0800 10/27/20 esomeprazole magnesium 40 mg PO DAILY 10/27/20 ezetimibe 10 mg PO DAILY 10/27/20 fluticasone propionate 2 spray NASAL DAILY 10/27/20 goldenseal 325 mg PO DAILY 10/27/20 multivitamin 1 tab PO DAILY 10/27/20 tadalafil 5 mg PO DAILY 10/27/20 lisinopril 5 mg tablet 10 mg PO DAILY tablet 12/01/20 ferrous sulfate 325 mg PO TID 12/26/20
[2021-01-06] MEDS: Enoxaparin 40 MG/0.4 ML Syringe SC (11:04)
== END 2021-01-06 11:55 | disposition home or self-care (01) | DRG 331 ==
LOC: ACINP 08:45 → MS3 01-03 07:25
PROVIDERS: Anesthesiology; Admitting Provider Surgery; PCP Family Medicine; Referring Provider Surgery; Visit Provider Surgery
PROC: 0DTF4ZZ Resection of Right Large Intestine, Percutaneous Endoscopic Approach (ICD-10-PCS; CPT 44205; principal; 2021-01-02 10:40)
DX: C18.0 Malignant neoplasm of cecum (principal); Z85.46 Personal history of malignant neoplasm of prostate; K21.9 Gastro-esophageal reflux disease without esophagitis; I25.10 Atherosclerotic heart disease of native coronary artery without angina pectoris; N40.0 Benign prostatic hyperplasia without lower urinary tract symptoms; E78.5 Hyperlipidemia, unspecified; I10 Essential (primary) hypertension; E11.65 Type 2 diabetes mellitus with hyperglycemia; E86.0 Dehydration; Z86.14 Personal history of Methicillin resistant Staphylococcus aureus infection; Z87.891 Personal history of nicotine dependence
CPT/HCPCS: 36415; 80048; 82962; 83036; 83735; 85025; 85027; 85610; 85730; 88309; 99251; J7040; J7050; J7120; A4216; C1760; G0463; J2405

== ENCOUNTER 2021-01-11 08:57 | Inpatient (IN) | payer MEDICARE, BC, SELFPAY ==
[2021-01-02 18:47] VITALS: BMI 32.5
[2021-01-11 08:58] VITALS: BP 145/75; PULSE 86; RESP 15; TEMP 36.4; O2SAT 97; BMI 31.1
[2021-01-11 09:00] VITALS: BP 145/75; PULSE 86; RESP 15; TEMP 36.4; O2SAT 97
--- NOTE | 2021-01-11 09:30 | CT_ITS ---
STUDY: CT ABDOMEN AND PELVIS WITH CONTRAST REASON FOR EXAM: Male, 70 years old. Abd pain -- IV PO Contrast RADIATION DOSAGE (If Supplied By Facility): CTDIvol = ( 15.85 ) mGy, DLP = ( 1191.79 ) mGycm TECHNIQUE: Transaxial images were obtained from the dome of the diaphragm to the symphysis pubis without oral contrast. Oral and amp; IV Gastrografin and amp; 100mL Isovue-300 was administered. Sagittal and coronal images were reconstructed. Individualized dose optimization techniques were used for this CT. COMPARISON: 12/15/2020 FINDINGS: The visualized lung bases are unremarkable. The visualized portions of the heart are within normal limits. Liver is unremarkable although there is now a small amount of ascites noted around the periphery of the right lobe of the liver. Normal gallbladder and extrahepatic biliary system. Normal spleen. Normal pancreas. Normal bilateral adrenal glands. No obstructive uropathy, stable 2 cm left renal cyst. There is a stable prominent hiatal hernia. Multiple borderline distended fluid-filled small bowel loops are noted consistent with ileus/early obstruction. This is also developed since the previous study. The transition point is not clearly identified. There are postsurgical changes noted to a bowel loop in the right abdomen there is no anastomotic leak noted but adhesions from the previous surgery may be responsible for the dilated bowel loops. Extensive colonic diverticulosis, no CT evidence of acute diverticulitis. There is non-visualization of the appendix. Normal abdominal aorta. Normal inferior vena cava. Normal retroperitoneum. Normal urinary bladder. There is a small fluid containing periumbilical hernia. There are diffuse degenerative changes of the visualized lumbar spine, and pelvis. CT/Abdomen/Pelvis WITH Contrast IMPRESSION: New since the previous study has been development of dilated fluid-filled small bowel loops in all 4 quadrants of the abdomen suggesting ileus/early obstruction. Transition point not clearly identified but there has been previous abdominal surgery and adhesions would be a likely cause of this problem Stable colonic diverticulosis, no CT evidence of acute diverticulitis Small amount of ascites had developed since the previous study Stable left renal cyst, no specific follow-up needed Electronically Signed: Alfredo Ross MD at 12:11 EDT , Service support ,
--- NOTE | 2021-01-11 09:32 | EX.ED.DYSGE1 ---
HPI History of Present Illness Chief Complaint: Abd Pain Informant: patient and spouse/S.O. Onset/Context/Timing Onset: Days Context: Gradual Onset Current Severity: Moderate Maximum Severity: Moderate Narrative Narrative: Patient presents secondary to abdominal distention and pain. He had a right hemicolectomy performed on January [address] Jacobson. Patient states since discharge to home he has had very poor appetite and feels full after only a few bites. He feels his abdomen is bloated. Last evening he had the hiccups and states that he was belching every 10 seconds or so. He has had some gas rectally with small bowel movement. He called Dr. Jacobson this morning who advised him to come to the emergency room for evaluation. 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 BPH (benign prostatic hyperplasia) CAD (coronary artery disease) Chronic neck pain Chronic sinusitis GERD (gastroesophageal reflux disease) Head trauma History of MRSA infection History of neck injury History of prostate cancer History of stress test Hyperlipidemia Hypertension Uncontrolled type 2 diabetes mellitus Home Medications acetaminophen 1,300 mg PO BID PRN PRN 10/27/20 [History Last Taken 12/13/20 07:30 1300 MG] aspirin 81 mg PO DAILY@0800 10/27/20 [History Last Taken 01/02/21 06:00] esomeprazole magnesium 40 mg PO DAILY 10/27/20 [History Last Taken 01/10/21] ezetimibe 10 mg PO DAILY 10/27/20 [History Last Taken 10/27/20] fluticasone propionate 2 spray NASAL DAILY 10/27/20 [History Last Taken 10/26/20] goldenseal 325 mg PO DAILY 10/27/20 [History Last Taken 10/27/20] multivitamin 1 tab PO DAILY 10/27/20 [History Last Taken 10/27/20] tadalafil 5 mg PO DAILY 10/27/20 [History Last Taken 10/27/20] lisinopril 5 mg tablet 10 mg PO DAILY tablet 12/01/20 [History Last Taken 01/10/21] ferrous sulfate 325 mg PO TID 12/26/20 [History Last Taken 01/10/21] Allergy/AdvReac Type Severity Reaction Status Date / Time Kqqljvb-Guw-Dhy Reductase AdvReac Other Verified 01/11/21 09:00 Inhibitor Family History Other Cancer Heart disease Hypertension Surgical History History of colonoscopy (~2010) History of heart bypass surgery (~2010) History of neck surgery (~2017) History of plastic surgery History of prostatectomy (~2010) Social History Smoking Status: Never smoker ROS ROS ED Constitutional Constitutional ED: Denies chills or fever(s) Eyes Eyes: Denies change in vision ENT ENT ED: Denies sore throat Cardiovascular Cardiovascular: Denies chest pain Respiratory/Chest Respiratory/Chest: Denies cough or dyspnea Gastrointestinal Gastrointestinal: Reports abdominal pain, nausea and vomiting; Denies diarrhea Genitourinary Genitourinary ED: Denies dysuria Musculoskeletal Musculoskeletal: Denies back pain Integumentary Denies rash Neurologic Neurologic: Denies headache(s) or weakness Psychiatric Psychiatric: Denies anxiety or depression Endocrine Endocrinology: Denies polydipsia or polyuria Allergic/Immunologic Allergic/Immunologic ED: Denies urticaria EXAM Physical Exam Const Vital Signs: 01/11/21 08:58 01/11/21 09:00 01/11/21 12:23 Temperature 97.6 F L 97.6 F L Temperature Source Temporal Temporal Pulse Rate 86 86 95 Respiratory Rate 15 15 13 Blood Pressure 145/75 H 145/75 H 130/81 H Blood Pressure Mean 98 98 97 Pulse Ox 97 97 99 Oxygen Delivery Method Room Air Room Air Positive well nourished and well developed General Appearance ED: well developed HEENT Reports normocephalic and head/scalp atraumatic Eyes PERRL and EOMs intact bilaterally Neck supple Chest Wall inspection of chest normal and palpation of chest normal Resp normal respiratory effort and clear to auscultation bilaterally Cardio regular rate and regular rhythm GI non-tender Inspection: abdominal distention Auscultation: hypoactive bowel sounds Extremity normal to inspection Neuro oriented x3 and no sensory deficits noted Sensorium / Orientation: alert Motor Exam: strength 5/5 throughout Psych mental status grossly normal Skin no rashes or lesions noted MDM MDM MDM Narrative Medical decision making narrative: Patient was given Zofran for nausea. Blood work and CT are ordered. Lab Data Attestation: I reviewed the patient's lab results. Labs: Laboratory Results - last 24 hr 01/11/21 01/11/21 10:07 10:07 WBC 10.2 RBC 4.66 Hgb 12.0 L Hct 39.0 L MCV 83.7 MCH 25.8 L MCHC 30.8 L RDW Std Deviation 45.5 H RDW Coeff of Arleen 15.2 H Plt Count 258 MPV 9.9 Immature Gran % (Auto) 0.500 Neut % (Auto) 73.8 H Lymph % (Auto) 16.5 L [place] % (Auto) 6.9 Eos % (Auto) 1.6 Baso % (Auto) 0.7 Absolute Neuts (auto) 7.5 Absolute Lymphs (auto) 1.69 Nucleated RBC % 0 Sodium 136 Potassium 4.3 Chloride 102 Carbon Dioxide 30.0 Anion Gap 4 L BUN 34 H Creatinine 1.27 Estim Creat Clear Calc 59.41 Est GFR (MDRD) Af Amer 72 Est GFR (MDRD) Non-Af 60 BUN/Creatinine Ratio 26.8 H Glucose 147 H Calcium 9.3 Radiography Diagnostic Testing: Radiology Impression Abdomen/Pelvis CT 01/11/21 09:30 IMPRESSION: New since the previous study has been development of dilated fluid-filled small bowel loops in all 4 quadrants of the abdomen suggesting ileus/early obstruction. Transition point not clearly identified but there has been previous abdominal surgery and adhesions would be a likely cause of this problem Stable colonic diverticulosis, no CT evidence of acute diverticulitis Small amount of ascites had developed since the previous study Stable left renal cyst, no specific follow-up needed Electronically Signed: Alfredo Ross MD at 12:11 EDT , Service support , Treatment and Re-Evaluation Comments:: Test results discussed with Dr. Jacobson. He believes the patient likely has an ileus. Patient be admitted for further treatment. Discharge Plan Triage Chief Complaint: Abd Pain ED Provider: Cata Lazo Dx/Rx/DC Orders Clinical Impression: Ileus Prescriptions: No Action multivitamin 1 TABLET tablet 1 tab PO DAILY RF: 0 aspirin 81 MG tablet 81 mg PO DAILY@0800 RF: 0 acetaminophen 650 MG tablet extended release 1,300 mg PO BID PRN PRN (Reason: ARTHRITIS) RF: 0 esomeprazole magnesium 40 MG capsule,delayed release(DR/EC) 40 mg PO DAILY RF: 0 fluticasone propionate 16 GM spray,suspension 2 spray NASAL DAILY RF: 0 goldenseal 325 MG capsule 325 mg PO DAILY RF: 0 ezetimibe 10 MG tablet 10 mg PO DAILY RF: 0 tadalafil 5 MG tablet 5 mg PO DAILY RF: 0 lisinopril 5 mg tablet 10 mg PO DAILY RF: 0 ferrous sulfate 325 MG tablet 325 mg PO TID RF: 0 Primary Care Provider: Jose Luis Larose Referrals: Jose Luis Larose MD [Primary Care Provider] - Disposition Disposition: Acute Care Hospital [facility]
[2021-01-11 10:24] LABS: Absolute Lymphocyte Count 1.69 X10^3/uL (0.83-4.51); Absolute Neutrophil Count 7.5 X10^3/uL (2.0-7.7); Basophil# 0.07 X10^3/uL; Basophil% 0.7 % (0-1); Eosinophil# 0.16 X10^3/uL; Eosinophils% 1.6 % (0-5); Lymphocyte # 1.69 X10^3/ul (0.83-4.51); Lymphocyte % 16.5 % (19-41); Mean Corp Hgb Conc 30.8 g/dL (32-36); Mean Corpuscular Hgb 25.8 pg (27.0-32.0); Mean Corpuscular Volume 83.7 fL (80-94); Mean Platelet Vol. 9.9 fl (6.2-12.0); Monocyte# 0.71 X10^3/uL; Monocyte% 6.9 % (0-10); NRBC Flagged by Analyzer 0 % (0-5); Neutrophil # 7.54 X10^3/uL (2.7-7.7); Neutrophil % 73.8 % (47-70); Platelet Count 258 K/mm3 (150-450); RBC Distribution Width CV 15.2 % (11.6-14.6); RBC Distribution Width SD 45.5 fl (35.1-43.9); Red Blood Count 4.66 M/mm3 (4.6-6.2); White Blood Count 10.2 K/mm3 (4.4-11.0)
[2021-01-11] MEDS: Ondansetron 4 MG/2 ML Vial IV (10:27)
[2021-01-11] MEDS: 0.9% Normal Saline 1,000 ML 150 ML IV (10:27)
[2021-01-11 10:35] LABS: Anion Gap 4 (5-15); BUN 34 mg/dL (7-18); BUN/Creat Ratio 26.8 RATIO (10-20); Calcium,Total 9.3 mg/dL (8.5-10.1); Chloride 102 mmol/L (98-107); Creatinine, Serum 1.27 mg/dL (0.70-1.30); EST Glomerular Filtration Rate 60 mL/min (>60); Est Glom Filt Rate - Afr Amer 72 mL/min (>60); Estimated Creatinine Clearance 59.41 ml/min; Glucose 147 mg/dL (74-106); Potassium 4.3 mmol/L (3.5-5.1); Sodium Level 136 mmol/L (136-145)
[2021-01-11 12:23] VITALS: BP 130/81; PULSE 95; RESP 13; TEMP 36.8; O2SAT 99
[2021-01-11 12:25] VITALS: BP 130/81; PULSE 95; RESP 13; TEMP 36.8; O2SAT 99
--- NOTE | 2021-01-11 13:54 | PCM.HP.STD ---
HPI - General General Date of Admission: 01/11/21 HPI Narrative ATA DE LA TORRE, is a 70 M who presents with nausea, abdominal pain and lack of appetite. Dr. Jacobson performed a laparoscopic right hemicolectomy on 01/02/2021. Patient was discharged on 01/07/21. He stated since this time he had difficulty with his diet. He was unable to tolerate food. He has been only able to consume 2-3 bites of soft foods before he becomes nauseated and bloated. He noted vomiting on Saturday. He noted feeling better, tried to eat and became nauseated. He notes minimal amount of flatus. He notes diarrhea since surgery. He noted yesterday he had an 8 hour episode of hiccups. Patient's symptoms continued and he presented to the ED. CT scan of the abdomen/pelvis was obtained and demonstrated: IMPRESSION: New since the previous study has been development of dilated fluid-filled small bowel loops in all 4 quadrants of the abdomen suggesting ileus/early obstruction.? Transition point not clearly identified but there has been previous abdominal surgery and adhesions would be a likely cause of this problem ? Stable colonic diverticulosis, no CT evidence of acute diverticulitis ? Small amount of ascites had developed since the previous study ? 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 BPH (benign prostatic hyperplasia) CAD (coronary artery disease) Chronic neck pain Chronic sinusitis GERD (gastroesophageal reflux disease) Head trauma History of MRSA infection History of neck injury History of prostate cancer History of stress test Hyperlipidemia Hypertension Uncontrolled type 2 diabetes mellitus Home Medications acetaminophen 1,300 mg PO BID PRN PRN 10/27/20 [History Last Taken 12/13/20 07:30 1300 MG] aspirin 81 mg PO DAILY@0800 10/27/20 [History Last Taken 01/02/21 06:00] esomeprazole magnesium 40 mg PO DAILY 10/27/20 [History Last Taken 01/10/21] ezetimibe 10 mg PO DAILY 10/27/20 [History Last Taken 10/27/20] fluticasone propionate 2 spray NASAL DAILY 10/27/20 [History Last Taken 10/26/20] goldenseal 325 mg PO DAILY 10/27/20 [History Last Taken 10/27/20] multivitamin 1 tab PO DAILY 10/27/20 [History Last Taken 10/27/20] tadalafil 5 mg PO DAILY 10/27/20 [History Last Taken 10/27/20] lisinopril 5 mg tablet 10 mg PO DAILY tablet 12/01/20 [History Last Taken 01/10/21] ferrous sulfate 325 mg PO TID 12/26/20 [History Last Taken 01/10/21] Allergy/AdvReac Type Severity Reaction Status Date / Time Lradpdx-Qsx-Plr Reductase AdvReac Other Verified 01/11/21 09:00 Inhibitor Family History Other Cancer Heart disease Hypertension Surgical History History of colonoscopy (~2010) History of heart bypass surgery (~2010) History of neck surgery (~2017) History of plastic surgery History of prostatectomy (~2010) Social History Smoking Status: Never smoker ROS Constitutional Constitutional: Reports systems reviewed and no addt'l complaints, except as documented Eyes Eyes: Reports systems reviewed and no addt'l complaints, except as documented ENT HEENT: Reports systems reviewed and no addt'l complaints, except as documented Cardiovascular Cardiovascular: Reports systems reviewed and no addt'l complaints, except as documented Respiratory/Chest Respiratory/Chest: Reports systems reviewed and no addt'l complaints, except as documented Gastrointestinal Gastrointestinal: Reports systems reviewed and no addt'l complaints, except as documented Genitourinary Genitourinary: Reports systems reviewed and no addt'l complaints, except as documented Musculoskeletal Musculoskeletal: Reports systems reviewed and no addt'l complaints, except as documented Integumentary Integumentary: Reports systems reviewed and no addt'l complaints, except as documented Neurologic Neurologic: Reports systems reviewed and no addt'l complaints, except as documented Psychiatric Psychiatric: Reports systems reviewed and no addt'l complaints, except as documented Endocrine Endocrinology: Reports systems reviewed and no addt'l complaints, except as documented Hematologic/Lymphatic Hematologic/Lymphatic: Reports systems reviewed and no addt'l complaints, except as documented Allergic/Immunologic Allergic/Immunologic: Reports systems reviewed and no addt'l complaints, except as documented Vital Signs Vital Signs Vital Signs: 01/11/21 08:58 01/11/21 09:00 01/11/21 12:23 Temperature 97.6 F L 97.6 F L 98.2 F Temperature Source Temporal Temporal Oral Pulse Rate 86 86 95 Respiratory Rate 15 15 13 Blood Pressure 145/75 H 145/75 H 130/81 H Blood Pressure Mean 98 98 97 Pulse Ox 97 97 99 Oxygen Delivery Method Room Air Room Air 01/11/21 12:25 Temperature 98.2 F Temperature Source Oral Pulse Rate 95 Respiratory Rate 13 Blood Pressure 130/81 H Blood Pressure Mean 97 Pulse Ox 99 Oxygen Delivery Method Room Air Physical Exam Const alert and oriented x3 General Appearance: cooperative and comfortable HEENT normocephalic Eyes PERRL General Eye: normal appearance of both eyes Neck General: normal visual inspection Thyroid: Negative for mass Lymph Lymphatic: no lymphadenopathy noted Chest inspection of chest normal Resp normal respiratory effort Cardio regular rate and regular rhythm GI Inspection: abdominal distention and incision intact and healing well Auscultation: absent bowel sounds Palpation: firm; Negative for guarding Percussion: tympanic to percussion no CVA tenderness Back/Spine no CVA tenderness Extremity normal to inspection Skin no rashes or lesions noted Neuro CN's II-XII intact bilaterally Psych Appearance: grossly normal and appropriate Lab / Micro Data Result Diagrams: 01/11/21 10:07 01/11/21 10:07 Labs: Laboratory Results - last 24 hr 01/11/21 01/11/21 10:07 10:07 WBC 10.2 RBC 4.66 Hgb 12.0 L Hct 39.0 L MCV 83.7 MCH 25.8 L MCHC 30.8 L RDW Std Deviation 45.5 H RDW Coeff of Arleen 15.2 H Plt Count 258 MPV 9.9 Immature Gran % (Auto) 0.500 Neut % (Auto) 73.8 H Lymph % (Auto) 16.5 L [place] % (Auto) 6.9 Eos % (Auto) 1.6 Baso % (Auto) 0.7 Absolute Neuts (auto) 7.5 Absolute Lymphs (auto) 1.69 Nucleated RBC % 0 Sodium 136 Potassium 4.3 Chloride 102 Carbon Dioxide 30.0 Anion Gap 4 L BUN 34 H Creatinine 1.27 Estim Creat Clear Calc 59.41 Est GFR (MDRD) Af Amer 72 Est GFR (MDRD) Non-Af 60 BUN/Creatinine Ratio 26.8 H Glucose 147 H Calcium 9.3 Radiology Impression Abdomen/Pelvis CT 01/11/21 09:30 IMPRESSION: New since the previous study has been development of dilated fluid-filled small bowel loops in all 4 quadrants of the abdomen suggesting ileus/early obstruction. Transition point not clearly identified but there has been previous abdominal surgery and adhesions would be a likely cause of this problem Stable colonic diverticulosis, no CT evidence of acute diverticulitis Small amount of ascites had developed since the previous study Stable left renal cyst, no specific follow-up needed Electronically Signed: Alfredo Ross MD at 12:11 EDT , Service support , Assessment & Plan Assessment/Plan (1) Ileus: PLAN: I have discussed this patient with Dr. Jacobson. Plan to admit patient to med/surg floor, bowel rest, IV fluids, ambulation and NPO. Obtain a KUB tomorrow morning. Patient may have chewing gum or hard candy. Patient and his have had the opportunity to ask and have questions answered. We will continue to monitor this patient. Visit Charges Inpatient E&M: 76760 Init Hosp L1
[2021-01-11 14:10] VITALS: BP 150/91; PULSE 71; RESP 18; TEMP 36.6; O2SAT 96
[2021-01-11 14:18] VITALS: BMI 31.1
--- NOTE | 2021-01-11 15:23 | NT.THERAPY_ITS ---
Nutrition Therapy Report - History Nutrition Services has been consulted to:: Manage nutrient details of diet order Current diet / nutrition support order:: No diet order; NPO due to ileus - Anthropometric Measurements Height:: 6 ft Weight:: 104 kg Body Mass Index (BMI):: 31.1 - Relevant Labs Relevant Labs:: Hgb 12.0 g/dL (13.0-16.5) L 01/11/21 10:07 Hct 39.0 % (40-54) L 01/11/21 10:07 MCH 25.8 pg (27.0-32.0) L 01/11/21 10:07 MCHC 30.8 g/dL (32-36) L 01/11/21 10:07 RDW Std Deviation 45.5 fl (35.1-43.9) H 01/11/21 10:07 RDW Coeff of Arleen 15.2 % (11.6-14.6) H 01/11/21 10:07 Neut % (Auto) 73.8 % (47-70) H 01/11/21 10:07 Lymph % (Auto) 16.5 % (19-41) L 01/11/21 10:07 Anion Gap 4 (5-15) L 01/11/21 10:07 BUN 34 mg/dL (7-18) H 01/11/21 10:07 BUN/Creatinine Ratio 26.8 RATIO (10-20) H 01/11/21 10:07 Glucose 147 mg/dL (74-106) H 01/11/21 10:07 - Assessment Food / Nutrition-Related History:: Pt is currently NPO and 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 Prior to surgery was eating ok and denies difficulty chewing/swallowing. Pt reports UBW~109 Kg and has been losing wt---calculated~9-10% x past 2 months and ~4-5% x past 1 week both of which are significant for malnutrition in addition to being unable to tolerate adequate PO since surgery. Pt appears well nourished; -NFPA. - Nutrition Diagnosis Problem / Etiology / Signs & Symptoms (PES):: Severe pro/eduardo malnutrition in the context of acute illness related to increased energy expenditure and altered GI function as evidenced by calculated~9-10% x past 2 months and ~4-5% x past 1 week, inability to tolerate PO and meeting less than 50% estimated nutrition needs. Evidence of Malnutrition Exists:: Yes Severe Protein Calorie Malnutrition:: Acute Illness - Nutrition Intervention Nutrition Prescription:: Estimated nutrition needs~4029-7905 kcal (22-23 kcal/Kg) and ~120-130 gm pro/Kg (1.2 gm pro/Kg). Estimated fluid needs~2400- 2600 ml/day (25 ml/Kg). - Food / Nutrient Delivery Interventions Summary of nutrition intervention:: Diet as tolerated to transitional with goal diet of carb-controlled as medically able. Consider parenteral nutrition support if unable to advance diet in 24-72 hours. ONS as diet advanced to replete protein/energy once oral diet able to advance. Nutrition support ordered as / adjusted to:: none at this time Nutrition education provided?: Yes - MNT Monitoring Further MNT monitoring and evaluation required?: Yes MNT Follow-up in:: 3-5 days
[2021-01-11 15:27] VITALS: BMI 31.1
[2021-01-11] MEDS: 0.9% Normal Saline 1,000 ML 60 ML IV (17:16)
[2021-01-11] MEDS: Acetaminophen 325 MG Tablet 650 MG PO (19:48)
[2021-01-11 19:57] VITALS: BP 127/71; PULSE 76; RESP 16; TEMP 36.4; O2SAT 96
[2021-01-12 02:32] VITALS: BP 130/77; PULSE 70; RESP 15; TEMP 36.6; O2SAT 100
[2021-01-12 05:45] LABS: Absolute Lymphocyte Count 0.67 X10^3/uL (0.83-4.51); Basophil# 0.03 X10^3/uL; Basophil% 0.5 % (0-1); Eosinophil# 0.23 X10^3/uL; Eosinophils% 4.2 % (0-5); Hematocrit 32.9 % (40-54); Hemoglobin 10.1 g/dL (13.0-16.5); Lymphocyte # 0.67 X10^3/ul (0.83-4.51); Lymphocyte % 12.2 % (19-41); Mean Corp Hgb Conc 30.7 g/dL (32-36); Mean Corpuscular Volume 84.8 fL (80-94); Mean Platelet Vol. 10.1 fl (6.2-12.0); Monocyte# 0.51 X10^3/uL; Monocyte% 9.3 % (0-10); NRBC Flagged by Analyzer 0 % (0-5); Neutrophil # 4.03 X10^3/uL (2.7-7.7); Neutrophil % 73.3 % (47-70); Platelet Count 174 K/mm3 (150-450); RBC Distribution Width CV 15.2 % (11.6-14.6); RBC Distribution Width SD 46.4 fl (35.1-43.9); Red Blood Count 3.88 M/mm3 (4.6-6.2); White Blood Count 5.5 K/mm3 (4.4-11.0)
[2021-01-12] MEDS: 0.9% Normal Saline 1,000 ML 60 ML IV ×2 (06:05→22:27)
[2021-01-12 06:07] LABS: Anion Gap 4 (5-15); BUN 26 mg/dL (7-18); BUN/Creat Ratio 23.9 RATIO (10-20); Calcium,Total 8.8 mg/dL (8.5-10.1); Chloride 105 mmol/L (98-107); Creatinine, Serum 1.09 mg/dL (0.70-1.30); EST Glomerular Filtration Rate 71 mL/min (>60); Est Glom Filt Rate - Afr Amer 86 mL/min (>60); Estimated Creatinine Clearance 69.22 ml/min; Glucose 125 mg/dL (74-106); Potassium 4.5 mmol/L (3.5-5.1); Sodium Level 137 mmol/L (136-145)
--- NOTE | 2021-01-12 06:30 | RAD_ITS ---
STUDY: X-RAY - ABDOMEN/PELVIS REASON FOR EXAM: Male, 70 years old. Abdominal pain TECHNIQUE: 3 AP views including upright COMPARISON: None. FINDINGS: Normal visualized lung bases. Multiple nondistended air fluid levels noted in the stairstepping pattern upright film consistent with ileus. There is some retained stool. There is no demonstrated free abdominal air. The visualized liver, spleen and kidneys are grossly normal in size and morphology. Normal soft tissue structures. There are diffuse degenerative changes of the visualized lumbar spine. RAD/Abd Inc Decub and/or Erect IMPRESSION: Ileus Electronically Signed: Alfredo Ross MD at 7:37 EDT , Service support ,
--- NOTE | 2021-01-12 07:19 | PCM.PN.SRG ---
Subjective Subjective Patient reports passing flatus this morning. He says this is the best he is felt since having surgery. He did not have any nausea or vomiting overnight but he did have some hiccups. Objective Data Objective Data Vital Signs: Vital Signs Temp Pulse Resp BP Pulse Ox 98 F 70 15 130/77 H 100 01/12/21 02:32 01/12/21 02:32 01/12/21 02:32 01/12/21 02:32 01/12/21 02:32 Oxygen Delivery Method Room Air Weight: 230 lb 3.2 oz Body Mass Index (BMI) 31.1 Intake & Output: Intake and Output for Last 24 Hours 01/10/21 01/11/21 01/12/21 23:59 23:59 23:59 Intake Total 1000 / 1000 1269 / 1269 Output Total 150 / 150 Balance 850 / 850 1269 / 1269 Lab / Micro Data Result Diagrams: 01/12/21 05:34 01/12/21 05:34 Labs: Laboratory Results - last 24 hr 01/11/21 01/11/21 01/12/21 10:07 10:07 05:34 WBC 10.2 5.5 RBC 4.66 3.88 L Hgb 12.0 L 10.1 L Hct 39.0 L 32.9 L MCV 83.7 84.8 MCH 25.8 L 26.0 L MCHC 30.8 L 30.7 L RDW Std Deviation 45.5 H 46.4 H RDW Coeff of Arleen 15.2 H 15.2 H Plt Count 258 174 MPV 9.9 10.1 Immature Gran % (Auto) 0.500 0.500 Neut % (Auto) 73.8 H 73.3 H Lymph % (Auto) 16.5 L 12.2 L [place] % (Auto) 6.9 9.3 Eos % (Auto) 1.6 4.2 Baso % (Auto) 0.7 0.5 Absolute Neuts (auto) 7.5 4.0 Absolute Lymphs (auto) 1.69 0.67 L Nucleated RBC % 0 0 Sodium 136 Potassium 4.3 Chloride 102 Carbon Dioxide 30.0 Anion Gap 4 L BUN 34 H Creatinine 1.27 Estim Creat Clear Calc 59.41 Est GFR (MDRD) Af Amer 72 Est GFR (MDRD) Non-Af 60 BUN/Creatinine Ratio 26.8 H Glucose 147 H Calcium 9.3 01/12/21 05:34 WBC RBC Hgb Hct MCV MCH MCHC RDW Std Deviation RDW Coeff of Arleen Plt Count MPV Immature Gran % (Auto) Neut % (Auto) Lymph % (Auto) [place] % (Auto) Eos % (Auto) Baso % (Auto) Absolute Neuts (auto) Absolute Lymphs (auto) Nucleated RBC % Sodium 137 Potassium 4.5 Chloride 105 Carbon Dioxide 28.0 Anion Gap 4 L BUN 26 H Creatinine 1.09 Estim Creat Clear Calc 69.22 Est GFR (MDRD) Af Amer 86 Est GFR (MDRD) Non-Af 71 BUN/Creatinine Ratio 23.9 H Glucose 125 H Calcium 8.8 Radiography Diagnostic Testing: Radiology Impression Abdomen/Pelvis CT 01/11/21 09:30 IMPRESSION: New since the previous study has been development of dilated fluid-filled small bowel loops in all 4 quadrants of the abdomen suggesting ileus/early obstruction. Transition point not clearly identified but there has been previous abdominal surgery and adhesions would be a likely cause of this problem Stable colonic diverticulosis, no CT evidence of acute diverticulitis Small amount of ascites had developed since the previous study Stable left renal cyst, no specific follow-up needed Electronically Signed: Alfredo Ross MD at 12:11 EDT , Service support , Physical Exam Const oriented x3 and no apparent distress Resp normal respiratory effort Cardio regular rate and regular rhythm GI soft to palpation and non-tender Inspection: abdominal distention Assessment & Plan Assessment/Plan (1) Ileus: (2) Colon cancer: QUALIFIERS: Colon location: ascending Qualified Code(s): C18.2 - Malignant neoplasm of ascending colon PLAN: The patient had postoperative ileus due to the surgery. The patient had a CT scan yesterday which showed some mild distended loops of small bowel but there was gas and stool in the colon. Patient reports this morning that he was passing flatus and that this is the most flatus he is passing surgery and is the best he has felt since surgery. I believe the cathartic effects of the Gastrografin are helping. The patient's x-ray this morning shows that there is gas throughout the descending and sigmoid colon. Once the patient is less distended and passing more significant gas I will advance his diet and discharge home once he is feeling better. Patient's labs appear stable. Bronson Jacobson MD Pager: [phone] [address] [place] [address], [address] [place] [address] Office:
--- NOTE | 2021-01-12 08:06 | NURSING ---
Pt is walking in ricardo with his . Pt encouraged to walk as much as he can tolerate today. Pt Also encouraged to use I.S every hr.
[2021-01-12 08:11] VITALS: BP 123/72; PULSE 70; RESP 20; TEMP 36.9; O2SAT 98
[2021-01-12 08:13] VITALS: O2SAT 93
[2021-01-12] MEDS: Acetaminophen 325 MG Tablet 650 MG PO ×2 (08:17→17:21)
[2021-01-12] MEDS: Ferrous Sulfate 325 MG Tablet PO ×3 (08:18→17:18)
[2021-01-12] MEDS: Aspirin E.C. 81 MG Tablet PO (08:18)
[2021-01-12] MEDS: Ezetimibe 10 MG Tablet PO (08:19)
[2021-01-12] MEDS: Fluticasone 0.05% 1 SPRAY NASAL.SRY 2 SPRAY NASAL (08:19)
[2021-01-12] MEDS: Pantoprazole Sodium 40 MG Tablet PO (08:19)
[2021-01-12] MEDS: Lisinopril 10 MG Tablet PO (08:19)
[2021-01-12] MEDS: Ibuprofen 400 MG Tablet PO (12:25)
[2021-01-12 15:58] VITALS: BP 116/91; PULSE 63; RESP 18; TEMP 36.9; O2SAT 98
[2021-01-12 22:18] VITALS: BP 141/85; PULSE 78; RESP 18; TEMP 37; O2SAT 98
[2021-01-13 04:00] VITALS: BP 132/72; PULSE 74; RESP 18; TEMP 36.9; O2SAT 95
[2021-01-13] MEDS: Fluticasone 0.05% 1 SPRAY NASAL.SRY 2 SPRAY NASAL (08:36)
[2021-01-13] MEDS: Ezetimibe 10 MG Tablet PO (08:36)
[2021-01-13] MEDS: Pantoprazole Sodium 40 MG Tablet PO (08:36)
[2021-01-13] MEDS: Aspirin E.C. 81 MG Tablet PO (08:36)
[2021-01-13] MEDS: Ferrous Sulfate 325 MG Tablet PO ×2 (08:36→12:10)
[2021-01-13] MEDS: Lisinopril 10 MG Tablet PO (08:37)
[2021-01-13] MEDS: Acetaminophen 325 MG Tablet 650 MG PO (08:38)
--- NOTE | 2021-01-13 08:58 | NURSING ---
Sitting in chair, eating breakfast.
[2021-01-13 11:22] VITALS: BP 142/75; PULSE 62; RESP 16; TEMP 36.9; O2SAT 97
--- NOTE | 2021-01-13 12:34 | PCM.DC.SUM ---
Providers Date of Admission: 01/11/21 Primary Care Physician: Dr. Jose Luis Larose MD Reason For Visit: POST-OP ILEUS Diagnosis Discharge Diagnosis (1) Ileus: Status: Acute Code(s): K56.7 - Ileus, unspecified (2) Colon cancer: Status: Acute Code(s): C18.9 - Malignant neoplasm of colon, unspecified Qualifiers: Colon location: ascending Qualified Code(s): C18.2 - Malignant neoplasm of ascending colon Medications at Discharge Home Medications acetaminophen 1,300 mg PO BID PRN PRN 10/27/20 aspirin 81 mg PO DAILY@0800 10/27/20 esomeprazole magnesium 40 mg PO DAILY 10/27/20 ezetimibe 10 mg PO DAILY 10/27/20 fluticasone propionate 2 spray NASAL DAILY 10/27/20 goldenseal 325 mg PO DAILY 10/27/20 multivitamin 1 tab PO DAILY 10/27/20 tadalafil 5 mg PO DAILY 10/27/20 lisinopril 5 mg tablet 10 mg PO DAILY tablet 12/01/20 ferrous sulfate 325 mg PO TID 12/26/20 Hospital Course Summary of Care Provided Hospital Course: The patient was admitted for postoperative ileus. The following day the patient began passing flatus, was nauseated and was started on a clear liquid diet. The following day after that he started having bowel movements and was advanced to regular diet. Once he was tolerating a regular diet he was discharged home in stable condition. ABG / Lab / Microbiology Data Result Diagrams: 01/12/21 05:34 01/12/21 05:34 D/C Instructions Discharge Diet: Light diet - advance as tolerated Call your doctor if your incision/area has: Continuous Slow Oozing, Sudden Increased Bleeding, Increased Pain/ Swelling, Increased Redness, Foul Smelling Discharge and Swelling at the incision site Call your doctor if you observe: Fever of 101 or Higher and Coldness, Increased Pain Cleanse incision/area with: Soap & Water Please Follow Up With: Bronson Jacobson MD When: as scheduled Meaningful Use Info Meaningful Use Diagnoses (Choose all that apply): None applicable Discharge Plan Admission Admit Date/Time: 01/11/21 13:52 Attending Provider: Bronson Jacobson Primary Care Provider: Jose Luis Larose Discharge Orders/Prescriptions Prescriptions: Continued multivitamin 1 TABLET tablet 1 tab PO DAILY RF: 0 aspirin 81 MG tablet 81 mg PO DAILY@0800 RF: 0 acetaminophen 650 MG tablet extended release 1,300 mg PO BID PRN PRN (Reason: ARTHRITIS) RF: 0 esomeprazole magnesium 40 MG capsule,delayed release(DR/EC) 40 mg PO DAILY RF: 0 fluticasone propionate 16 GM spray,suspension 2 spray NASAL DAILY RF: 0 goldenseal 325 MG capsule 325 mg PO DAILY RF: 0 ezetimibe 10 MG tablet 10 mg PO DAILY RF: 0 tadalafil 5 MG tablet 5 mg PO DAILY RF: 0 lisinopril 5 mg tablet 10 mg PO DAILY RF: 0 ferrous sulfate 325 MG tablet 325 mg PO TID RF: 0 Referrals / Follow Up: Jose Luis Larose MD [Primary Care Provider] - Disposition Disposition (needs filled in before D/C Order can be placed): Home, self care
--- NOTE | 2021-01-13 12:49 | CASEMGMT ---
[facility] chart review: Patient was admitted 01/02-01/07/21 for lap right hemicolectomy. Patient returned 01/11/21 for post op ileus. See [facility] assessment form 01/03/21. Patient to follow-up with Dr. Jacobson as outpatient. Patient to discharge home, no needs anticipated.
[2021-01-13 12:50] VITALS: O2SAT 95
--- NOTE | 2021-01-16 16:26 | CASEMGMT ---
[facility] Discharge Follow-up Phone Call: JALEN: Belle Strata: 3 Call Date: 01/16/21 Discharge Date: 01/13/21 Time of Call: 1625 Duration: 3 min Admitting Diagnosis: Post op ileus RN PAWAN completed follow-up phone call after recent hospitalization. Patient's significant other Ladonna answered the phone. Patient is doing ok. Has follow-up appts schedule. No questions regarding discharge instructions. Ladonna had no questions or concerns at this time.
== END 2021-01-13 13:22 | disposition home or self-care (01) | DRG 394 ==
LOC: ED 13:15 → MS3 01-12 08:08
PROVIDERS: Physician Assistant; Admitting Provider Surgery; Emergency Provider Emergency Medicine; PCP Family Medicine; Visit Provider Surgery
DX: K91.89 Other postprocedural complications and disorders of digestive system (principal); K56.7 Ileus, unspecified; C18.2 Malignant neoplasm of ascending colon; E44.0 Moderate protein-calorie malnutrition; K57.30 Diverticulosis of large intestine without perforation or abscess without bleeding; N28.1 Cyst of kidney, acquired; Z68.31 Body mass index [BMI] 31.0-31.9, adult; E78.5 Hyperlipidemia, unspecified; Y83.8 Other surgical procedures as the cause of abnormal reaction of the patient, or of later complication, without mention of misadventure at the time of the procedure; I25.10 Atherosclerotic heart disease of native coronary artery without angina pectoris; E11.65 Type 2 diabetes mellitus with hyperglycemia; I10 Essential (primary) hypertension; K21.9 Gastro-esophageal reflux disease without esophagitis; N40.0 Benign prostatic hyperplasia without lower urinary tract symptoms; Z86.14 Personal history of Methicillin resistant Staphylococcus aureus infection; Z79.82 Long term (current) use of aspirin; Z85.46 Personal history of malignant neoplasm of prostate; Z90.79 Acquired absence of other genital organ(s)
CPT/HCPCS: 36415; 74019; 74177; 80048; 85025; 97802; 99251; 99284; J7030; Q9967; A4216; G0463; J2405

== ENCOUNTER → 2021-02-02 13:10 | Outpatient (CLI) | payer MEDICARE, BC, SELFPAY ==
--- NOTE | 2021-02-02 13:11 | CT_ITS ---
STUDY: CT CHEST WITH CONTRAST REASON FOR EXAM: Male, 70 years old. Colon cancer, lung abnormality on previous study RADIATION DOSAGE (If Supplied By Facility): CTDIvol = ( 16.18 ) mGy, DLP = ( 594.36 ) mGycm TECHNIQUE: Transaxial imaging was performed following intravenous administration of IV 100mL Isovue-300. Multiplanar coronal and sagittal images were reformatted. Individualized dose optimization techniques were used for this CT. COMPARISON: Comparison is made with prior examination dated 03/02/2011. FINDINGS: Small benign-appearing bilateral axillary lymph nodes. Minimal increased markings at the right lung base suggestive of a linear atelectasis and/or scarring. There is no demonstrated pleural abnormality. There are calcifications of the coronary arteries. Normal mediastinum. Normal hilar regions. Normal enhanced pulmonary arteries. Normal aorta arch and descending thoracic aorta. There are multi-level degenerative changes of the thoracic spine. Moderate sized hiatal hernia. CT/Chest WITH Contrast IMPRESSION: Mild degree of increased markings at the lung bases slightly more prominent on the right side suggestive of linear atelectasis and/or scarring. Electronically Signed: Andrea Elizabeth MD at 14:53 EDT , Service support ,
== END ==
PROVIDERS: PCP Family Medicine; Referring Provider Internal Medicine Hematology & Oncology; Visit Provider Internal Medicine Hematology & Oncology
DX: C18.2 Malignant neoplasm of ascending colon (principal); R93.89 Abnormal findings on diagnostic imaging of other specified body structures
CPT/HCPCS: 71260; Q9967

== ENCOUNTER → 2021-05-02 16:31 | Outpatient (CLI) | payer MEDICARE, BC, SELFPAY ==
[2021-05-02 17:48] LABS: Absolute Lymphocyte Count 2.39 X10^3/uL (0.83-4.51); Absolute Neutrophil Count 3.1 X10^3/uL (2.0-7.7); Basophil# 0.05 X10^3/uL; Basophil% 0.8 % (0-1); Eosinophils% 1.6 % (0-5); Hemoglobin 12.7 g/dL (13.0-16.5); Lymphocyte # 2.39 X10^3/ul (0.83-4.51); Lymphocyte % 39.1 % (19-41); Mean Corp Hgb Conc 32.6 g/dL (32-36); Mean Corpuscular Hgb 27.9 pg (27.0-32.0); Mean Corpuscular Volume 85.5 fL (80-94); Mean Platelet Vol. 10.9 fl (6.2-12.0); Monocyte# 0.42 X10^3/uL; Monocyte% 6.9 % (0-10); NRBC Flagged by Analyzer 0 % (0-5); Neutrophil # 3.13 X10^3/uL (2.7-7.7); Neutrophil % 51.1 % (47-70); Platelet Count 159 K/mm3 (150-450); RBC Distribution Width CV 14.6 % (11.6-14.6); RBC Distribution Width SD 45.7 fl (35.1-43.9); Red Blood Count 4.56 M/mm3 (4.6-6.2); White Blood Count 6.1 K/mm3 (4.4-11.0)
[2021-05-02 18:10] LABS: Ferritin 17 ng/mL (26-388); Iron 216 ug/dL (65-175)
[2021-05-02 18:13] LABS: Iron Binding Capacity,Total 346 ug/dL (250-450)
[2021-05-04 18:50] LABS: Carcinoembryonic Antigen 3.2 ng/mL (0.0-4.7); Transferrin 275 mg/dL (177-329)
== END ==
PROVIDERS: PCP Family Medicine; Referring Provider Internal Medicine Hematology & Oncology; Visit Provider Internal Medicine Hematology & Oncology
DX: D50.9 Iron deficiency anemia, unspecified (principal); C18.2 Malignant neoplasm of ascending colon
CPT/HCPCS: 36415; 82378; 82728; 83540; 83550; 84466; 85025

== ENCOUNTER → 2021-08-01 12:53 | Outpatient (CLI) | payer MEDICARE, BC, SELFPAY ==
--- NOTE | 2021-08-01 12:54 | CT_ITS ---
STUDY: CT CHEST WITH CONTRAST REASON FOR EXAM: Male, 70 years old. FOLLOW UP ON RLL LUNG NODULE. IV CONTRAST ONLY. -- PLEASE COMPARE WITH CT SCAN 11/2020 RADIATION DOSAGE (If Supplied By Facility): CTDIvol = ( 14.73 ) mGy, DLP = ( 564.14 ) mGycm TECHNIQUE: Transaxial imaging was performed following intravenous administration of IV 100mL Isovue-300. Multiplanar coronal and sagittal images were reformatted. Individualized dose optimization techniques were used for this CT. COMPARISON: Comparison is made with prior study dated 02/02/2021. FINDINGS: There is enlargement of the left lobe of the thyroid gland with substernal extension. Stable small benign appearing bilateral axillary lymph nodes. Stable minimal scarring at the lung bases. No pulmonary nodules are seen. Tiny calcified granuloma in the right lower lobe. There is no demonstrated pleural abnormality. Sternal cerclage wires and vascular clips are present from a prior sternotomy and coronary artery bypass graft procedure (CABG). There are calcifications of the coronary arteries. Normal mediastinum. Calcified right hilar lymph nodes. Normal enhanced pulmonary arteries. Normal aorta arch and descending thoracic aorta. There are multi-level degenerative changes of the thoracic spine. Moderate sized hiatal hernia. CT/Chest WITH Contrast IMPRESSION: Stable examination. No acute abnormality is seen. Electronically Signed: Andrea Elizabeth MD at 9:36 EST , Service support ,
[2021-08-01 13:22] LABS: CREATININE FINGERSTICK 0.9 mg/dL (0.70-1.30); EGFR FINGERSTICK > 60.0000 mL/min (>60)
[2021-08-01 13:26] LABS: Absolute Lymphocyte Count 2.13 X10^3/uL (0.83-4.51); Absolute Neutrophil Count 2.6 X10^3/uL (2.0-7.7); Basophil# 0.04 X10^3/uL; Basophil% 0.8 % (0-1); Eosinophil# 0.14 X10^3/uL; Eosinophils% 2.6 % (0-5); Hematocrit 41.6 % (40-54); Hemoglobin 13.6 g/dL (13.0-16.5); Lymphocyte # 2.13 X10^3/ul (0.83-4.51); Mean Corp Hgb Conc 32.7 g/dL (32-36); Mean Corpuscular Hgb 28.8 pg (27.0-32.0); Mean Corpuscular Volume 88.1 fL (80-94); Monocyte# 0.46 X10^3/uL; Monocyte% 8.6 % (0-10); NRBC Flagged by Analyzer 0 % (0-5); Neutrophil # 2.55 X10^3/uL (2.7-7.7); Neutrophil % 47.8 % (47-70); Platelet Count 148 K/mm3 (150-450); RBC Distribution Width CV 12.8 % (11.6-14.6); RBC Distribution Width SD 41.5 fl (35.1-43.9); Red Blood Count 4.72 M/mm3 (4.6-6.2); White Blood Count 5.3 K/mm3 (4.4-11.0)
[2021-08-01 13:56] LABS: AST(SGOT) 22 U/L (15-37); Alanine Aminotransfer ALT/SGPT 31 U/L (16-61); Albumin, Serum 3.8 g/dL (3.2-5.0); Alkaline Phosphatase 71 U/L (45-117); Anion Gap 5 (5-15); BUN 26 mg/dL (7-18); BUN/Creat Ratio 24.1 RATIO (10-20); Calcium,Total 9.4 mg/dL (8.5-10.1); Chloride 109 mmol/L (98-107); Creatinine, Serum 1.08 mg/dL (0.70-1.30); EST Glomerular Filtration Rate 72 mL/min (>60); Est Glom Filt Rate - Afr Amer 87 mL/min (>60); Ferritin 28 ng/mL (26-388); Globulin 3.7 g/dL (2.2-4.2); Glucose 105 mg/dL (74-106); Iron 79 ug/dL (65-175); Iron Binding Capacity,Total 331 ug/dL (250-450); PERCENT IRON SATURATION 23.9 % (15.0-55.0); PSA,Total- Diagnostic 0.32 ng/mL (0.0-4.0); Protein, Total 7.5 g/dL (6.4-8.2); Sodium Level 142 mmol/L (136-145)
== END ==
PROVIDERS: PCP Family Medicine; Referring Provider Internal Medicine Hematology & Oncology; Visit Provider Internal Medicine Hematology & Oncology
DX: R91.8 Other nonspecific abnormal finding of lung field (principal); C18.2 Malignant neoplasm of ascending colon; Z85.46 Personal history of malignant neoplasm of prostate; D50.9 Iron deficiency anemia, unspecified
CPT/HCPCS: 36415; 71260; 80053; 82378; 82728; 83540; 83550; 84153; 85025; Q9967

== ENCOUNTER 2021-09-04 15:08 | Emergency (ER) | payer MEDICARE, BC, SELFPAY ==
[2021-09-04 15:08] VITALS: BP 202/121; PULSE 102; RESP 20; TEMP 37; O2SAT 93; BMI 31.1
--- NOTE | 2021-09-04 15:10 | RAD_ITS ---
STUDY: X-RAY CHEST REASON FOR EXAM: Male, 70 years old. Sob TECHNIQUE: Single AP portable view of the chest. COMPARISON: None. FINDINGS: Mild increased linear markings at the lung bases suggestive of atelectasis and/or scarring. There is no demonstrated pleural abnormality. Sternal cerclage wires and vascular clips are present from a prior sternotomy and coronary artery bypass graft procedure (CABG). Normal mediastinum and cary. Normal visualized pulmonary arteries. There is atherosclerotic calcification of the aortic arch with tortuosity. There are diffuse degenerative changes of the visualized thoracic spine. Prior fusion of the lower cervical spine. There is no demonstrated abnormality of the visualized soft tissue structures of the upper abdomen. RAD/Chest 1 View (Portable) IMPRESSION: Mild degree of increased markings at the lung bases suggestive of mild linear atelectasis versus scarring. Electronically Signed: Andrea Elizabeth MD at 15:51 EST , Service support ,
[2021-09-04 16:27] LABS: Absolute Lymphocyte Count 0.47 X10^3/uL (0.83-4.51); Basophil# 0.01 X10^3/uL; Basophil% 0.3 % (0-1); Hematocrit 43.5 % (40-54); Hemoglobin 14.4 g/dL (13.0-16.5); Lymphocyte # 0.47 X10^3/ul (0.83-4.51); Lymphocyte % 11.8 % (19-41); Mean Corp Hgb Conc 33.1 g/dL (32-36); Mean Corpuscular Volume 84.6 fL (80-94); Mean Platelet Vol. 10.4 fl (6.2-12.0); Monocyte# 0.53 X10^3/uL; Monocyte% 13.3 % (0-10); NRBC Flagged by Analyzer 0 % (0-5); Neutrophil # 2.95 X10^3/uL (2.7-7.7); Neutrophil % 74.1 % (47-70); POSITIVE DIFFERENTIAL YES; Platelet Count 142 K/mm3 (150-450); RBC Distribution Width CV 12.7 % (11.6-14.6); RBC Distribution Width SD 39.1 fl (35.1-43.9); Red Blood Count 5.14 M/mm3 (4.6-6.2)
[2021-09-04 16:32] LABS: Differential Indicated SCAN CRITERIA MET
[2021-09-04 16:41] LABS: Anion Gap 13 (5-15); BUN 21 mg/dL (7-18); BUN/Creat Ratio 18.6 RATIO (10-20); Calcium,Total 9.6 mg/dL (8.5-10.1); Chloride 97 mmol/L (98-107); Creatinine, Serum 1.13 mg/dL (0.70-1.30); EST Glomerular Filtration Rate 68 mL/min (>60); Est Glom Filt Rate - Afr Amer 82 mL/min (>60); Estimated Creatinine Clearance 66.76 ml/min; Glucose 184 mg/dL (74-106); Potassium 4.2 mmol/L (3.5-5.1); Sodium Level 135 mmol/L (136-145)
--- NOTE | 2021-09-04 16:43 | EDS_ITS ---
HPI History of Present Illness Chief Complaint: General Illness Detail of Chief Complaint: Fever with low pulse ox with nausea and vomiting and loose stools. Informant: patient and spouse/S.O. Onset/Context/Timing Onset: Days Context: Gradual Onset Timing: Continuous Current Severity: Mild Maximum Severity: Mild Narrative Narrative: 70-year-old male history of prior 5 way bypass, prostate cancer, colon cancer, neck surgery. States he has had a fever and low pulse ox at home at 86% for the last 6 days. Nonproductive cough with nausea and vomiting and loose stools. Patient and his both been vaccinated against COVID. She had a recent URI but only lasted several days and is now improving. 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 BPH (benign prostatic hyperplasia) CAD (coronary artery disease) Chronic neck pain Chronic sinusitis GERD (gastroesophageal reflux disease) Head trauma History of MRSA infection History of neck injury History of prostate cancer History of prostate cancer History of stress test Hyperlipidemia Hypertension Iron deficiency anemia Lung nodules Uncontrolled type 2 diabetes mellitus Home Medications acetaminophen 1,300 mg PO BID PRN PRN 10/27/20 [History Last Taken 12/13/20 07:30 1300 MG] aspirin 81 mg PO DAILY@0800 10/27/20 [History Last Taken 01/02/21 06:00] esomeprazole magnesium 40 mg PO DAILY 10/27/20 [History Last Taken 01/10/21] ezetimibe 10 mg PO DAILY 10/27/20 [History Last Taken 10/27/20] fluticasone propionate 2 spray NASAL DAILY 10/27/20 [History Last Taken 10/26/20] goldenseal 325 mg PO DAILY 10/27/20 [History Last Taken 10/27/20] multivitamin 1 tab PO DAILY 10/27/20 [History Last Taken 10/27/20] tadalafil 5 mg PO DAILY 10/27/20 [History Last Taken 10/27/20] lisinopril 5 mg tablet 10 mg PO DAILY tablet 12/01/20 [History Last Taken 01/10/21] ferrous sulfate 325 mg PO TID 12/26/20 [History Last Taken 01/10/21] sucralfate 1 gram tablet 1 g PO QACHS #60 tab 01/17/21 [Rx Last Taken Unknown] dexamethasone [Decadron] 6 mg PO DAILY 7 Days #7 tab 09/04/21 [Rx Last Taken Unknown] ondansetron 4 mg PO Q6H PRN #7 tab 09/04/21 [Rx Last Taken Unknown] Allergy/AdvReac Type Severity Reaction Status Date / Time Ejfnrhq-[id number] Reductase AdvReac Severe Other Verified 09/04/21 15:10 Inhibitor [Twynfsr-Fkh-Ugs Reductase Inhibitor] Family History Other Cancer Heart disease Hypertension Surgical History History of colonoscopy (~2010) History of heart bypass surgery (~2010) History of neck surgery (~2017) History of plastic surgery History of prostatectomy (~2010) S/P colectomy Social History Smoking Status: Never smoker second hand exposure: No details: RARELY substance use type: does not use seatbelt use: always do you feel safe at home: Yes ROS ROS ED ROS Narrative Nausea vomiting diarrhea. Fever and cough. Review of Systems ROS Unobtainable: Denies due to encephalopathy Constitutional Constitutional ED: Reports fever(s) Eyes Eyes: Denies change in vision ENT ENT ED: Reports sore throat; Denies ear pain or rhinorrhea Cardiovascular Cardiovascular: Denies chest pain or palpitations Respiratory/Chest Respiratory/Chest: Reports cough; Denies dyspnea Gastrointestinal Gastrointestinal: Reports diarrhea, nausea and vomiting; Denies abdominal pain Genitourinary Genitourinary ED: Denies dysuria Musculoskeletal Musculoskeletal: Reports myalgias Integumentary Denies rash Neurologic Neurologic: Denies headache(s) Psychiatric Psychiatric: Denies depression Endocrine Endocrinology: Denies polyuria Allergic/Immunologic Allergic/Immunologic ED: Denies urticaria EXAM Physical Exam Narrative Exam Narrative: 70-year-old male vital signs are stable he is afebrile. Pulse ox here is 93% on room air. He does not look septic or toxic. He is no acute distress. He does not look significantly dehydrated. H EENT exam unremarkable. Metric members. Neck nontender no lymphadenopathy. Lungs clear to auscultation. Heart regular rhythm rate about 100 no murmur. Abdomen soft nontender normal bowel sounds no peritoneal signs. Moving all 4 extremities. Nontender no edema. Neurologically is awake and alert with no focal motor deficits. Const Vital Signs: 09/04/21 15:08 Temperature 98.6 F Temperature Source Temporal Pulse Rate 102 H Respiratory Rate 20 H Blood Pressure 202/121 H Blood Pressure Mean 148 Pulse Ox 93 Oxygen Delivery Method Room Air Positive well nourished and well developed; Negative for cachectic, contractures or unkempt General Appearance ED: well developed and NAD; Negative for unkempt, cachectic, contractures, cyanotic, diaphoretic or pallor Nutritional Appearance: Negative for cachectic HEENT Reports moist mucous membranes Negative for trauma Eyes PERRL and EOMs intact bilaterally Neck no lymphadenopathy, supple and no JVD General: Negative for tenderness Chest Wall inspection of chest normal and palpation of chest normal Resp normal respiratory effort and clear to auscultation bilaterally Auscultation: Negative for rales, rhonchi, wheezes or diminished lung sounds Cardio regular rate, regular rhythm, S1 normal heart sound, S2 normal heart sound and no murmurs GI normal to inspection, nondistended, normoactive bowel sounds, non-tender, non- distended and no masses Auscultation: normoactive bowel sounds Palpation: soft; Negative for tender, guarding or rebound tenderness present Back/Spine no CVA tenderness General Back: Negative for CVA tenderness Cervical Spine: Negative for cervical spine tenderness Thoracic Spine / Upper Back: Negative for thoracic spinal tenderness or paraspinal muscle tenderness Lumbar Spine / Lower Back: Negative for lumbar spinal tenderness Extremity normal to inspection General Extremety ED: Negative for edema or tenderness General Extremity: Negative for edema Neuro oriented x3 Sensorium / Orientation: alert; Negative for orientation impaired, lethargic or stuporous Motor Exam: strength 5/5 throughout Psych mental status grossly normal Appearance: Negative for unkempt Attitude: No agitated Mood & Affect: Negative for depressed or tearful Skin no rashes or lesions noted and no wounds General Skin Exam: Negative for jaundice or pallor MDM MDM MDM Narrative Medical decision making narrative: 70-year-old vaccinated male COVID-positive we treated with IV fluids and Zofran. P.o. Decadron. Patient most likely will be able to be discharged to home Repeat exam patient is doing well at 5:22 PM will be discharged to home. Prescription for Zofran for nausea and Decadron for his COVID. Outpatient fo llow-up as needed. Referred to monoclonal antibody center. Lab Data Attestation: I reviewed the patient's lab results. Lab results narrative: CBC shows a white count of 4. H&H of 14 and 43. Platelets are slightly 142,000. Electrolytes show sodium 135 gap of 13. BUN 29 creatinine 1.13. Glucose 84. Labs: Laboratory Results - last 24 hr 09/04/21 09/04/21 16:10 16:10 WBC 4.0 L RBC 5.14 Hgb 14.4 Hct 43.5 MCV 84.6 MCH 28.0 MCHC 33.1 RDW Std Deviation 39.1 RDW Coeff of Arleen 12.7 Plt Count 142 L MPV 10.4 Immature Gran % (Auto) 0.500 Neut % (Auto) 74.1 H Lymph % (Auto) 11.8 L [place] % (Auto) 13.3 H Eos % (Auto) 0.0 Baso % (Auto) 0.3 Absolute Neuts (auto) 3.0 Absolute Lymphs (auto) 0.47 L Nucleated RBC % 0 Differential Comment SCANNED Sodium 135 L Potassium 4.2 Chloride 97 L Carbon Dioxide 25.0 Anion Gap 13 BUN 21 H Creatinine 1.13 Estim Creat Clear Calc 66.76 Est GFR (MDRD) Af Amer 82 Est GFR (MDRD) Non-Af 68 BUN/Creatinine Ratio 18.6 Glucose 184 H Calcium 9.6 Radiography Chest X-Ray - ED: 1 View, Read by ED Physician, Read by Radiologist, Normal, Heart, Mediastinum, Bony Structures, Right Infiltrate and Left Infiltrate Diagnostic Testing: Clinical Impression(s) from Imaging Studies Chest X-Ray 09/04/21 15:10 IMPRESSION: Mild degree of increased markings at the lung bases suggestive of mild linear atelectasis versus scarring. Electronically Signed: Andrea Elizabeth MD at 15:51 EST , Service support , Single view, portable chest x-ray interpreted myself and radiologist I think shows small Infiltrates bilaterally consistent with COVID. Urgent care radiologist read is as increased lung markings. Discharge Plan Triage Chief Complaint: General Illness ED Provider: Alonso Govea Dx/Rx/DC Orders Clinical Impression: COVID-19, Hypertension, CAD (coronary artery disease), Colon cancer Instructions: Human Coronaviruses Prescriptions: New dexamethasone [Decadron] 6 mg tablet 6 mg PO DAILY 7 Days Qty: 7 RF: 0 ondansetron 4 mg tablet,disintegrating 4 mg PO Q6H PRN (Reason: nausea and vomiting) Qty: 7 RF: 0 No Action multivitamin 1 TABLET tablet 1 tab PO DAILY RF: 0 aspirin 81 MG tablet 81 mg PO DAILY@0800 RF: 0 acetaminophen 650 MG tablet extended release 1,300 mg PO BID PRN PRN (Reason: ARTHRITIS) RF: 0 esomeprazole magnesium 40 MG capsule,delayed release(DR/EC) 40 mg PO DAILY RF: 0 fluticasone propionate 16 GM spray,suspension 2 spray NASAL DAILY RF: 0 goldenseal 325 MG capsule 325 mg PO DAILY RF: 0 ezetimibe 10 MG tablet 10 mg PO DAILY RF: 0 tadalafil 5 MG tablet 5 mg PO DAILY RF: 0 lisinopril 5 mg tablet 10 mg PO DAILY RF: 0 ferrous sulfate 325 MG tablet 325 mg PO TID RF: 0 sucralfate [Carafate] 1 gram tablet 1 g PO QACHS Qty: 60 RF: 0 Primary Care Provider: Jose Luis Larose Referrals: Jose Luis Larose MD [Primary Care Provider] - 1 Week if not improving Activity Restrictions/Additional Instructions: Plenty of fluids and rest. Tylenol for fever. Daily Decadron to decrease inflammation in your lungs Return if feeling worse. Zofran as needed for nausea. Disposition Disposition: Home, Self Care
[2021-09-04 17:01] LABS: Differential Comment SCANNED
[2021-09-04] MEDS: dexAMETHasone 10 MG/ML Vial IV (17:12)
[2021-09-04] MEDS: 0.9% Normal Saline 1,000 ML 999 ML IV (17:12)
[2021-09-04] MEDS: Ondansetron 4 MG/2 ML Vial IV (17:12)
[2021-09-04 17:17] VITALS: RESP 22; O2SAT 94
[2021-09-04 18:18] VITALS: PULSE 97; RESP 17; O2SAT 94
[2021-09-06 10:03] LABS: Pathologist Review Reviewed
== END 2021-09-04 18:19 | disposition home or self-care (01) ==
LOC: ED 17:00
PROVIDERS: Emergency Provider Emergency Medicine; PCP Family Medicine; Visit Provider Emergency Medicine
DX: U07.1 COVID-19 (principal); C18.9 Malignant neoplasm of colon, unspecified; E11.9 Type 2 diabetes mellitus without complications; E78.5 Hyperlipidemia, unspecified; I25.10 Atherosclerotic heart disease of native coronary artery without angina pectoris; I10 Essential (primary) hypertension; Z79.899 Other long term (current) drug therapy; N40.0 Benign prostatic hyperplasia without lower urinary tract symptoms; K21.9 Gastro-esophageal reflux disease without esophagitis; Z85.46 Personal history of malignant neoplasm of prostate; Z87.19 Personal history of other diseases of the digestive system; G89.29 Other chronic pain; Z86.14 Personal history of Methicillin resistant Staphylococcus aureus infection; Z79.82 Long term (current) use of aspirin; D50.9 Iron deficiency anemia, unspecified; Z95.1 Presence of aortocoronary bypass graft
CPT/HCPCS: 71045; 80048; 85025; 87426; 94760; 96361; 96374; 96375; 99283; J7030; A4216; J2405

== ENCOUNTER 2021-09-07 16:34 | Outpatient (CLI) | payer MEDICARE, BC, SELFPAY ==
[2021-09-07 16:47] VITALS: BP 152/81; PULSE 97; RESP 18; TEMP 37.1; O2SAT 95; BMI 31.8
[2021-09-07] MEDS: 0.9% Saline Lock 10 ML Syringe IV (16:48)
[2021-09-07 17:20] VITALS: BP 119/70; PULSE 81; RESP 16; TEMP 37.7; O2SAT 94
[2021-09-07 18:09] VITALS: BP 122/68; PULSE 83; RESP 16; TEMP 37; O2SAT 95
== END 2021-09-07 23:59 | disposition home or self-care (01) ==
LOC: MS3OUT 16:36 → MS3 16:37
PROVIDERS: PCP Family Medicine; Referring Provider Nurse Practitioner Acute Care; Visit Provider Nurse Practitioner Acute Care
DX: Z23 Encounter for immunization (principal); U07.1 COVID-19
CPT/HCPCS: J7050; M0245; Q0245; A4216

== ENCOUNTER 2021-09-08 12:07 | Inpatient (IN) | payer MEDICARE, BC, SELFPAY ==
[2021-09-08] VITALS (11 sets, daily range): BP systolic 130–144; BP diastolic 72–89; PULSE 71–101; RESP 16–26; TEMP 35.7–37; O2SAT 90–96; BMI 33.4; BMI 30.5
--- NOTE | 2021-09-08 12:38 | RAD_ITS ---
STUDY: X-RAY CHEST REASON FOR EXAM: Male, 70 years old. Bibasilar rales, hypoxia, positive COVID TECHNIQUE: Single AP portable view of the chest. COMPARISON: Comparison is made with prior study dated 09/04/2021. FINDINGS: EKG electrodes are seen. Progressive bilateral pulmonary infiltrates worse in the left hemithorax. There is no demonstrated pleural abnormality. Sternal cerclage wires and vascular clips are present from a prior sternotomy and coronary artery bypass graft procedure (CABG). Normal mediastinum and cary. Normal visualized pulmonary arteries. Normal visualized aortic arch and descending thoracic aorta. There are diffuse degenerative changes of the visualized thoracic spine. Prior fusion in the lower cervical spine. There is no demonstrated abnormality of the visualized soft tissue structures of the upper abdomen. RAD/Chest 1 View (Portable) IMPRESSION: There has been a progression of the bilateral pulmonary infiltrates worse in the left hemithorax. Electronically Signed: Andrea Elizabeth MD at 13:01 EST , Service support ,
--- NOTE | 2021-09-08 12:39 | EKG12_ITS ---
Test Reason : SOB Blood Pressure : / mmHG Vent. Rate : 093 BPM Atrial Rate : 093 BPM P-R Int : 154 ms QRS Dur : 146 ms QT Int : 404 ms P-R-T Axes : 081 084 -15 degrees QTc Int : 502 ms Sinus rhythm with Premature atrial complexes Left bundle branch block Abnormal ECG Confirmed by SARAH SANTANA, PAKO ([id number]), tape editor TIM QUISPE ([id number]) on 09/11/2021 11:06:22 AM Referred By: Confirmed By:PAKO SMITH MD
--- NOTE | 2021-09-08 12:48 | EDS_ITS ---
HPI History of Present Illness Chief Complaint: Shortness of Breath Detail of Chief Complaint: Dyspnea with low pulse ox, low 80s Informant: patient and spouse/S.O. Onset/Context/Timing Onset: Yesterday (Yesterday received monoclonal antibody infusion. This morning pulse ox was 82%) Context: sudden Timing: Continuous Quality: Positive for Dyspnea on exertion; Negative for Orthopnea, PND and Wheezing Current Severity: Mild Maximum Severity: Severe Worsened by: Exertion and Coughing Relieved by: Nothing Associated Symptoms cough, rhinorrhea, post nasal drip and fever Chest Pain: Positive for None Narrative Narrative: Patient is a 70-year-old male diagnosed with COVID and received monoclonal antibody infusion last evening. He presents because of a low pulse ox. He has multiple medical problems. He has history of more than 1 type of cancer. He presents because of low pulse ox. He denies recent fever or chills. He denies ringing his ears decreased hearing. Does have mild nasal congestion and sore throat. He does have a cough. He does report dyspnea and dyspnea on exertion. Denies orthopnea PND. Denies abdominal pain. He has profuse diarrhea. He denies blood or mucus in his diarrhea. He does report decreased urine output and dark urine. He also reports thirst and dry mouth. He has not checked his blood sugar recently. 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 BPH (benign prostatic hyperplasia) CAD (coronary artery disease) Chronic neck pain Chronic sinusitis GERD (gastroesophageal reflux disease) Head trauma History of MRSA infection History of neck injury History of prostate cancer History of prostate cancer History of stress test Hyperlipidemia Hypertension Iron deficiency anemia Lung nodules Uncontrolled type 2 diabetes mellitus Home Medications acetaminophen 1,300 mg PO BID PRN PRN 10/27/20 [History Last Taken 12/13/20 07:30 1300 MG] aspirin 81 mg PO DAILY@0800 10/27/20 [History Last Taken 01/02/21 06:00] esomeprazole magnesium 40 mg PO DAILY 10/27/20 [History Last Taken 01/10/21] ezetimibe 10 mg PO DAILY 10/27/20 [History Last Taken 10/27/20] fluticasone propionate 2 spray NASAL DAILY 10/27/20 [History Last Taken 10/26/20] multivitamin 1 tab PO DAILY 10/27/20 [History Last Taken 10/27/20] tadalafil 5 mg PO DAILY 10/27/20 [History Last Taken 10/27/20] lisinopril 5 mg tablet 10 mg PO DAILY tablet 12/01/20 [History Last Taken 01/10/21] sucralfate 1 gram tablet 1 g PO QACHS #60 tab 01/17/21 [Rx Last Taken Unknown] dexamethasone [Decadron] 6 mg PO DAILY 7 Days #7 tab 09/04/21 [Rx Last Taken Unknown] ondansetron 4 mg PO Q6H PRN #7 tab 09/04/21 [Rx Last Taken Unknown] Allergy/AdvReac Type Severity Reaction Status Date / Time Ociiiij-FWX-QwD Reductase AdvReac Severe Other Verified 09/08/21 12:11 Inhibitor [Uyhgdkk-Sah-Xct Reductase Inhibitor] Family History Other Cancer Heart disease Hypertension Surgical History History of colonoscopy (~2010) History of heart bypass surgery (~2010) History of neck surgery (~2017) History of plastic surgery History of prostatectomy (~2010) S/P colectomy Social History (Updated 09/08/21 @ 12:[address] Vikram Carney MD) household members: spouse Smoking Status: Never smoker second hand exposure: No details: RARELY substance use type: does not use seatbelt use: always do you feel safe at home: Yes ROS ROS ED Constitutional Constitutional ED: Reports chills, fever(s) and sweats; Denies weight loss Eyes Eyes: Denies blurry vision, change in vision or diplopia ENT ENT ED: Reports rhinorrhea and sore throat; Denies ear pain Cardiovascular Cardiovascular: Denies chest pain, orthopnea, palpitations, paroxysmal nocturnal dyspnea or racing heartbeat Respiratory/Chest Respiratory/Chest: Reports cough, dyspnea and dyspnea on exertion; Denies orthopnea or paroxysmal nocturnal dyspnea Gastrointestinal Gastrointestinal: Reports diarrhea; Denies abdominal pain, constipation, melena or nausea Genitourinary Genitourinary ED: Denies dysuria, hematuria or urinary frequency Musculoskeletal Musculoskeletal: Reports arthralgias and myalgias; Denies neck pain Integumentary Denies rash Neurologic Neurologic: Reports headache(s) and weakness; Denies paresthesias Endocrine Endocrinology: Denies polydipsia, polyphagia or polyuria Hematologic/Lymphatic Hematologic/Lymphatic: Denies easy bleeding or easy bruising EXAM Physical Exam Const Vital Signs: 09/08/21 12:07 09/08/21 12:56 09/08/21 14:11 Temperature 98 F Temperature Source Temporal Pulse Rate 101 H 90 Respiratory Rate 18 24 H Respiratory Effort Labored Respiratory Depth Normal Respiratory Pattern Tachypnea Blood Pressure 134/88 H Blood Pressure Mean 103 Pulse Ox 92 94 Oxygen Delivery Method Room Air Nasal Cannula Nasal Cannula Oxygen Flow Rate (L/min) 2 2 09/08/21 14:38 09/08/21 16:08 Temperature Temperature Source Pulse Rate 97 Respiratory Rate 26 H Respiratory Effort Respiratory Depth Respiratory Pattern Blood Pressure 144/87 H Blood Pressure Mean 106 Pulse Ox 92 93 Oxygen Delivery Method Nasal Cannula Nasal Cannula Oxygen Flow Rate (L/min) 3 3 Positive well nourished, well developed and obese General Appearance ED: well developed; Negative for NAD or pallor Nutritional Appearance: obese HEENT Reports TM's clear; Denies dry mucous membranes HEENT Narrative: Nares patent. No drainage. atraumatic; Negative for tenderness Tympanic Membrane ED: Yes TM's clear Mouth ED: No dry mucous membranes Mouth: No dry mucous membranes Eyes PERRL and EOMs intact bilaterally General Eye ED: Negative for pale conjunctiva or scleral icterus Neck no lymphadenopathy, supple, no meningeal signs and no JVD Resp No normal respiratory effort and No clear to auscultation bilaterally Auscultation: rales diffuse Cardio regular rate, regular rhythm, S1 normal heart sound, S2 normal heart sound and no murmurs GI non-tender, non-distended and no masses Auscultation: normoactive bowel sounds Palpation: soft Back/Spine normal to inspection Extremity normal to inspection General Extremety ED: Negative for edema or tenderness General Extremity: Negative for edema Neuro oriented x3 and CN's II-XII intact bilaterally [place] Coma Scale: document GCS findings Spontaneous Obeys Commands Oriented 15 Sensorium / Orientation: alert Psych mental status grossly normal Thought Process: normal thought process Skin no wounds General Skin Exam: Negative for jaundice or pallor Lesions: no lesions Rashes: no rashes MDM MDM MDM Narrative Medical decision making narrative: Since patient is hypoxic has bilateral rales suspect he has COVID pneumonitis/pneumonia. Decadron was ordered. I was informed that he is on Decadron. Of note he was not hypoxic. He did receive monoclonal antibody infusion last evening. This is the first time has been hypoxic. He does have diabetes. Patient has failed outpatient therapy. He will require admission. Patient desaturated 87% on 4 L walking from room 19 to the restroom which is approximately 50 to 75 feet. Patient is not a candidate for home oxygen therapy will require admission to the hospital. Hospitalist has been paged. Lab Data Attestation: I reviewed the patient's lab results. Labs: Laboratory Results - last 24 hr 09/08/21 09/08/21 09/08/21 12:40 12:40 13:15 WBC 6.8 RBC 4.49 L Hgb 12.6 L Hct 38.1 L MCV 84.9 MCH 28.1 MCHC 33.1 RDW Std Deviation 40.0 RDW Coeff of Arleen 13.0 Plt Count 158 MPV 11.6 Immature Gran % (Auto) 0.600 Neut % (Auto) 86.6 H Lymph % (Auto) 9.4 L [place] % (Auto) 3.4 Eos % (Auto) 0.0 Baso % (Auto) 0.0 Absolute Neuts (auto) 5.9 Absolute Lymphs (auto) 0.64 L Nucleated RBC % 0 Sodium 132 L Potassium 3.7 Chloride 99 Carbon Dioxide 27.0 Anion Gap 6 BUN 34 H Creatinine 1.55 H Estim Creat Clear Calc 45.79 Est GFR (MDRD) Af Amer 57 L Est GFR (MDRD) Non-Af 47 L BUN/Creatinine Ratio 21.9 H Glucose 171 H Lactic Acid 1.6 Calcium 9.3 Total Bilirubin 0.50 AST 68 H ALT 37 Alkaline Phosphatase 56 Total Protein 8.0 Albumin 3.1 L Globulin 4.9 H Albumin/Globulin Ratio 0.6 L Radiography Chest X-Ray - ED: 1 View and Read by ED Physician (Single view chest x-ray was interpreted by me at 1248 as bilateral interstitial peripheral infiltrates consistent with COVID-pneumonia. Cardiac silhouette is unremarkable. Perihilar region reveals slight prominence. Osseous structures are unremarkable. Patient does have evidence of granulomatous) Diagnostic Testing: Clinical Impression(s) from Imaging Studies Chest X-Ray 09/08/21 12:38 IMPRESSION: There has been a progression of the bilateral pulmonary infiltrates worse in the left hemithorax. Electronically Signed: Andrea Elizabeth MD at 13:01 EST , Service support , EKG Initial EKG: Attestation: I personally reviewed and interpreted this EKG as follows: Interpretation: Sinus Rhythm (Sinus rhythm with a ventricular rate of 93 and premature atrial beat noted. QRS morphology consistent with a left bundle branch block. HI interval is 154 ms. QS duration of 46 ms. QT duration 4 and 4 ms.) Discharge Plan Triage Chief Complaint: Shortness of Breath ED Provider: Vikram Carney Dx/Rx/DC Orders Clinical Impression: Pneumonia due to 2019-nCoV, Acute respiratory failure with hypoxia Prescriptions: No Action multivitamin 1 TABLET tablet 1 tab PO DAILY RF: 0 aspirin 81 MG tablet 81 mg PO DAILY@0800 RF: 0 acetaminophen 650 MG tablet extended release 1,300 mg PO BID PRN PRN (Reason: ARTHRITIS) RF: 0 esomeprazole magnesium 40 MG capsule,delayed release(DR/EC) 40 mg PO DAILY RF: 0 fluticasone propionate 16 GM spray,suspension 2 spray NASAL DAILY RF: 0 ezetimibe 10 MG tablet 10 mg PO DAILY RF: 0 tadalafil 5 MG tablet 5 mg PO DAILY RF: 0 lisinopril 5 mg tablet 10 mg PO DAILY RF: 0 dexamethasone [Decadron] 6 mg tablet 6 mg PO DAILY 7 Days Qty: 7 RF: 0 ondansetron 4 mg tablet,disintegrating 4 mg PO Q6H PRN (Reason: nausea and vomiting) Qty: 7 RF: 0 sucralfate [Carafate] 1 gram tablet 1 g PO QACHS Qty: 60 RF: 0 Primary Care Provider: Jose Luis Larose Referrals: Jose Luis Larose MD [Primary Care Provider] - Disposition Disposition: Acute Care [facility]
[2021-09-08 12:50] LABS: Absolute Lymphocyte Count 0.64 X10^3/uL (0.83-4.51); Absolute Neutrophil Count 5.9 X10^3/uL (2.0-7.7); Hematocrit 38.1 % (40-54); Hemoglobin 12.6 g/dL (13.0-16.5); Lymphocyte # 0.64 X10^3/ul (0.83-4.51); Lymphocyte % 9.4 % (19-41); Mean Corp Hgb Conc 33.1 g/dL (32-36); Mean Corpuscular Hgb 28.1 pg (27.0-32.0); Mean Corpuscular Volume 84.9 fL (80-94); Mean Platelet Vol. 11.6 fl (6.2-12.0); Monocyte# 0.23 X10^3/uL; Monocyte% 3.4 % (0-10); NRBC Flagged by Analyzer 0 % (0-5); Neutrophil % 86.6 % (47-70); Platelet Count 158 K/mm3 (150-450); Red Blood Count 4.49 M/mm3 (4.6-6.2); White Blood Count 6.8 K/mm3 (4.4-11.0)
[2021-09-08 13:06] LABS: ALB/GLOB Ratio 0.6 RATIO (0.9-2.4); AST(SGOT) 68 U/L (15-37); Alanine Aminotransfer ALT/SGPT 37 U/L (16-61); Albumin, Serum 3.1 g/dL (3.2-5.0); Alkaline Phosphatase 56 U/L (45-117); Anion Gap 6 (5-15); BUN 34 mg/dL (7-18); BUN/Creat Ratio 21.9 RATIO (10-20); Calcium,Total 9.3 mg/dL (8.5-10.1); Chloride 99 mmol/L (98-107); Creatinine, Serum 1.55 mg/dL (0.70-1.30); EST Glomerular Filtration Rate 47 mL/min (>60); Est Glom Filt Rate - Afr Amer 57 mL/min (>60); Estimated Creatinine Clearance 45.79 ml/min; Globulin 4.9 g/dL (2.2-4.2); Glucose 171 mg/dL (74-106); Potassium 3.7 mmol/L (3.5-5.1); Sodium Level 132 mmol/L (136-145)
[2021-09-08 13:49] LABS: Lactic Acid 1.6 mmol/L (0.4-1.9)
[2021-09-08] MEDS: Acetaminophen 500 MG Tablet 1000 MG PO (16:32)
--- NOTE | 2021-09-08 16:46 | PCM.HP.STD ---
HPI - General General Date of Admission: 09/08/21 HPI Narrative ATA DE LA TORRE, is a 70 M with an extensive PMH as outlined who was admitted via the ED on 09/08/2020 with a complaint of shortness of breath. He was diagnosed with covid and received the monoclonal antibody infusion the night before admission. His symptoms started on Aug 30, and he was put on dexamethasone and referred for the monoclonal antibody which he received the night before admission. He became short of breath today, and his significant other said his saturation was as low as 82% on room air at home, and so came in to the ED. He denied any fever, chills, chest pain, but admitted to nausea, vomiting and diarrhea at home. . He desaturated to 87% whilst on 4L in the ED. He is vaccinated, and received his last dose of vaccine in November 2020.. Vitals were BP of 144/87, [place] of 97, RR of 26 and he was saturating at 93% on 3L of oxygen. CBC showed hb of 12.6, platelets of 158 and Hb of 12.6. BMP showed sodium of 132 with creatinine of 1.55 and potassium of 3.7. CXR showed progression of bilateral pulmonary infiltrates worse in the left hemithorax. He is being admitted to be managed for acute hypoxic respiratory failure due to covid 19 pneumonia. 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 BPH (benign prostatic hyperplasia) CAD (coronary artery disease) Chronic neck pain Chronic sinusitis GERD (gastroesophageal reflux disease) Head trauma History of MRSA infection History of neck injury History of prostate cancer History of prostate cancer History of stress test Hyperlipidemia Hypertension Iron deficiency anemia Lung nodules Uncontrolled type 2 diabetes mellitus Home Medications acetaminophen 1,300 mg PO BID PRN PRN 10/27/20 [History Last Taken 12/13/20 07:30 1300 MG] aspirin 81 mg PO DAILY@0800 10/27/20 [History Last Taken 01/02/21 06:00] esomeprazole magnesium 40 mg PO DAILY 10/27/20 [History Last Taken 01/10/21] ezetimibe 10 mg PO DAILY 10/27/20 [History Last Taken 10/27/20] fluticasone propionate 2 spray NASAL DAILY 10/27/20 [History Last Taken 10/26/20] multivitamin 1 tab PO DAILY 10/27/20 [History Last Taken 10/27/20] tadalafil 5 mg PO DAILY 10/27/20 [History Last Taken 10/27/20] lisinopril 5 mg tablet 10 mg PO DAILY tablet 12/01/20 [History Last Taken 01/10/21] sucralfate 1 gram tablet 1 g PO QACHS #60 tab 01/17/21 [Rx Last Taken Unknown] dexamethasone [Decadron] 6 mg PO DAILY 7 Days #7 tab 09/04/21 [Rx Last Taken Unknown] ondansetron 4 mg PO Q6H PRN #7 tab 09/04/21 [Rx Last Taken Unknown] Allergy/AdvReac Type Severity Reaction Status Date / Time Gwqhdnn-FOE-HuY Reductase AdvReac Severe Other Verified 09/08/21 12:11 Inhibitor [Ybkfddn-Emf-Xyk Reductase Inhibitor] Family History Other Cancer Heart disease Hypertension Surgical History History of colonoscopy (~2010) History of heart bypass surgery (~2010) History of neck surgery (~2017) History of plastic surgery History of prostatectomy (~2010) S/P colectomy Social History (Updated 09/08/21 @ 12:[address] Vikarm Carney MD) household members: spouse Smoking Status: Never smoker second hand exposure: No details: RARELY substance use type: does not use seatbelt use: always do you feel safe at home: Yes ROS Constitutional Constitutional: Reports fatigue, malaise and weakness; Denies anorexia, chills, fever(s) or night sweats ENT HEENT: Denies abnormal hearing, dysphagia or ear pain Cardiovascular Cardiovascular: Reports dyspnea on exertion; Denies chest pain, edema, lightheadedness, orthopnea, palpitations, paroxysmal nocturnal dyspnea, rapid heart rate or syncope Respiratory/Chest Respiratory/Chest: Reports cough, dyspnea, productive cough, shortness of breath at rest and shortness of breath with exertion; Denies excessive phlegm production, hemoptysis or wheezing Gastrointestinal Gastrointestinal: Reports diarrhea, nausea and vomiting; Denies abdominal pain, constipation or dyspepsia Genitourinary Genitourinary: Denies burning urination, dysuria, nocturia, urinary frequency, urinary hesitancy or urinary incontinence Musculoskeletal Musculoskeletal: Denies arthralgias or joint pain Neurologic Neurologic: Denies confusion, dizziness, focal weakness, headache(s), numbness, seizure-like activity, seizures, syncope or tremor(s) Psychiatric Psychiatric: Denies anxiety or depression Endocrine Endocrinology: Denies change in body appearance Hematologic/Lymphatic Hematologic/Lymphatic: Denies anemia Allergic/Immunologic Allergic/Immunologic: Denies asthma Vital Signs Vital Signs Vital Signs: 09/08/21 12:07 09/08/21 12:56 09/08/21 14:11 Temperature 98 F Temperature Source Temporal Pulse Rate 101 H 90 Respiratory Rate 18 24 H Respiratory Effort Labored Respiratory Depth Normal Respiratory Pattern Tachypnea Blood Pressure 134/88 H Blood Pressure Mean 103 Pulse Ox 92 94 Oxygen Delivery Method Room Air Nasal Cannula Nasal Cannula Oxygen Flow Rate (L/min) 2 2 09/08/21 14:38 09/08/21 16:08 Temperature Temperature Source Pulse Rate 97 Respiratory Rate 26 H Respiratory Effort Respiratory Depth Respiratory Pattern Blood Pressure 144/87 H Blood Pressure Mean 106 Pulse Ox 92 93 Oxygen Delivery Method Nasal Cannula Nasal Cannula Oxygen Flow Rate (L/min) 3 3 Weight Weight: 232 lb 12.93 oz Body Mass Index (BMI) 33.4 Physical Exam Const alert, oriented x3 and no apparent distress General Appearance: cooperative HEENT normocephalic, head/scalp atraumatic, hearing grossly normal bilaterally and moist oral mucous membranes Eyes PERRL, EOMs intact bilaterally and conjunctivae normal Neck no lymphadenopathy and supple Resp Resp Narrative: diminished breath sounds bibasally, no wheezes or crackles. On 3L of xoygen by nasal canula Cardio regular rate, regular rhythm, S1 normal heart sound, S2 normal heart sound and no murmurs GI normal to inspection, nondistended, normoactive bowel sounds, soft to palpation, non-tender and non-distended Extremity normal to inspection, full ROM and no clubbing, cyanosis or edema Peripheral Pulses: Yes pulses 2+ throughout Skin no rashes or lesions noted Neuro oriented x3, CN's II-XII intact bilaterally and moves all extremities Sensorium / Orientation: awake and alert Psych affect normal Results Lab / Micro Data Result Diagrams: 09/08/21 12:40 09/08/21 12:40 Labs: Laboratory Results - last 24 hr 09/08/21 12:40: WBC 6.8, RBC 4.49 L, Hgb 12.6 L, Hct 38.1 L, MCV 84.9, MCH 28.1, MCHC 33.1, RDW Std Deviation 40.0, RDW Coeff of Arleen 13.0, Plt Count 158, MPV 11.6, Immature Gran % (Auto) 0.600, Neut % (Auto) 86.6 H, Lymph % (Auto) 9.4 L, [place] % (Auto) 3.4, Eos % (Auto) 0.0, Baso % (Auto) 0.0, Absolute Neuts (auto) 5.9, Absolute Lymphs (auto) 0.64 L, Nucleated RBC % 0 09/08/21 12:40: Sodium 132 L, Potassium 3.7, Chloride 99, Carbon Dioxide 27.0, Anion Gap 6, BUN 34 H, Creatinine 1.55 H, Estim Creat Clear Calc 45.79, Est GFR (MDRD) Af Amer 57 L, Est GFR (MDRD) Non-Af 47 L, BUN/Creatinine Ratio 21.9 H, Glucose 171 H, Calcium 9.3, Total Bilirubin 0.50, AST 68 H, ALT 37, Alkaline Phosphatase 56, Total Protein 8.0, Albumin 3.1 L, Globulin 4.9 H, Albumin/Globulin Ratio 0.6 L 09/08/21 13:15: Lactic Acid 1.6 Radiology Impression Chest X-Ray 09/08/21 12:38 IMPRESSION: There has been a progression of the bilateral pulmonary infiltrates worse in the left hemithorax. Electronically Signed: Andrea Elizabeth MD at 13:01 EST , Service support , Assessment & Plan Assessment/Plan (1) Pneumonia due to 2019-nCoV: (2) Acute respiratory failure with hypoxia: PLAN: #Acute hypoxic respiratory failure due to covid 19 pneumonia admit to med surg with telemetry check for D dimer, and inflammatory markers start on decadron and remdesivir. Titrate oxygen to maintain sats>90% breathing treatments with bronchodilators. #Hypertension: on lisinopril #CAD s/p CABG x 5; on aspirin and ezetimibe. #History of prostate cancer:s/p resection. Stable. #History of colon cancer: stable . s/p colectomy. follow with oncology on outpatient basis. #Hyperlipidemia: on ezetimibe #GERD: on esomeprazole and sucralfate DVT prophylaxis: lovenox CODE STATUS: Patient and significant other counseled extensively about different types of CODE STATUS including full code, DNR CCA and DNR CCA. Patient elects to be full code. Total [id number]-uoms time 16 minutes. Charges/Coding Visit Charges Inpatient E&M: 56512 Init Hosp L3 Procedures Hospitalists Procedures: 92267 Advncd Care Plan 30 Min
[2021-09-08 18:35] LABS: International Normalized Ratio 1.1; Prothrombin Time (Protime)PT. 13.8 SECONDS (11.7-14.9)
[2021-09-08 18:38] LABS: Procalcitonin 1.31 ng/mL (0.00-0.09)
[2021-09-08 18:50] LABS: BNP,B-Type NATRIURETIC PEPTIDE 78.6 pg/mL (0-100)
[2021-09-08 18:53] LABS: Fibrinogen > 900 mg/dl (203-444)
[2021-09-08 18:57] LABS: CPK Total, Creatine Kinase 990 U/L (39-308); LDH 444 U/L (87-241)
[2021-09-08 19:11] LABS: D-Dimer Quantitative (DVT/PE) 1.47 FEU/ug/m (0.27-0.49)
--- NOTE | 2021-09-08 20:10 | CT_ITS ---
STUDY: CTA CHEST REASON FOR EXAM: Male, 70 years old. s SOB, Hypoxia 82% on RA at home. COVID- received monoclonal antibodies. vaccinated. Elevated d-dimer. RADIATION DOSAGE (If Supplied By Facility): CTDIvol = ( 18.6 ) mGy, DLP = ( 573.10 ) mGycm TECHNIQUE: The examination was performed with the intravenous administration of IV 100mL Isovue-370. Post-processing of the angiographic images was performed, with multiplanar reformation and 3D reconstruction. Individualized dose optimization techniques were used for this CT. COMPARISON: None. FINDINGS: Normal enhancement of the main pulmonary artery and right and left pulmonary arteries. Normal enhancement of the bilateral peripheral pulmonary arteries. There is no demonstrated pulmonary embolism. Normal thoracic aorta and visualized great vessels. There is no demonstrated aortic dissection. Sternal cerclage wires and vascular clips are present from a prior sternotomy and coronary artery bypass graft procedure (CABG). The heart is mildly enlarged. No pericardial effusion is present. Normal mediastinum. Normal hilar regions. Normal visualized trachea and bronchi. The lungs are well expanded. Moderate consolidation and groundglass edema is scattered throughout both lungs, with basilar predominance. These findings are consistent with Covid 19 pneumonia. Normal pleura. Normal chest wall structures. There are degenerative changes of thoracic spine. A small hiatal hernia is present. CT/CTA Chest W/WO Contrast IMPRESSION: 1. Moderate consolidation and groundglass edema is scattered throughout both lungs, with basilar predominance. These findings are consistent with Covid 19 pneumonia. 2. No demonstrated pulmonary embolism or arterial dissection. Electronically Signed: Mark Gonzalez MD at 22:41 EST , Service support ,
[2021-09-08] MEDS: 0.9% Normal Saline 1,000 ML 100 ML IV (22:35)
[2021-09-08] MEDS: Enoxaparin 30 MG/0.3 ML Syringe SC (22:36)
[2021-09-08] MEDS: Sucralfate 1 GM Tablet PO (22:36)
[2021-09-09] VITALS (12 sets, daily range): BP systolic 123–156; BP diastolic 68–88; PULSE 78–94; RESP 16–18; TEMP 36.4–36.6; O2SAT 92–96
[2021-09-09 06:46] LABS: Absolute Lymphocyte Count 0.55 X10^3/uL (0.83-4.51); Absolute Neutrophil Count 4.9 X10^3/uL (2.0-7.7); Basophil# 0.01 X10^3/uL; Basophil% 0.2 % (0-1); Hematocrit 33.9 % (40-54); Hemoglobin 11.5 g/dL (13.0-16.5); Lymphocyte # 0.55 X10^3/ul (0.83-4.51); Lymphocyte % 9.5 % (19-41); Mean Corp Hgb Conc 33.9 g/dL (32-36); Mean Corpuscular Hgb 28.4 pg (27.0-32.0); Mean Corpuscular Volume 83.7 fL (80-94); Mean Platelet Vol. 10.6 fl (6.2-12.0); Monocyte# 0.33 X10^3/uL; Monocyte% 5.7 % (0-10); NRBC Flagged by Analyzer 0 % (0-5); Neutrophil # 4.87 X10^3/uL (2.7-7.7); Neutrophil % 84.1 % (47-70); POSITIVE DIFFERENTIAL YES; Platelet Count 155 K/mm3 (150-450); RBC Distribution Width CV 13.2 % (11.6-14.6); RBC Distribution Width SD 40.3 fl (35.1-43.9); Red Blood Count 4.05 M/mm3 (4.6-6.2); White Blood Count 5.8 K/mm3 (4.4-11.0)
[2021-09-09 06:47] LABS: Differential Indicated SCAN CRITERIA MET
[2021-09-09] MEDS: Acetaminophen 325 MG Tablet 650 MG PO (06:54)
[2021-09-09] MEDS: Sucralfate 1 GM Tablet PO ×4 (06:54→21:27)
[2021-09-09 07:03] LABS: Differential Comment SCANNED
[2021-09-09 07:11] LABS: ALB/GLOB Ratio 0.6 RATIO (0.9-2.4); AST(SGOT) 59 U/L (15-37); Alanine Aminotransfer ALT/SGPT 33 U/L (16-61); Albumin, Serum 2.4 g/dL (3.2-5.0); Alkaline Phosphatase 46 U/L (45-117); Anion Gap 9 (5-15); BUN 33 mg/dL (7-18); BUN/Creat Ratio 30.3 RATIO (10-20); Calcium,Total 8.5 mg/dL (8.5-10.1); Chloride 107 mmol/L (98-107); Creatinine, Serum 1.09 mg/dL (0.70-1.30); EST Glomerular Filtration Rate 71 mL/min (>60); Est Glom Filt Rate - Afr Amer 86 mL/min (>60); Estimated Creatinine Clearance 69.22 ml/min; Globulin 4.1 g/dL (2.2-4.2); Glucose 134 mg/dL (74-106); Protein, Total 6.5 g/dL (6.4-8.2); Sodium Level 136 mmol/L (136-145)
[2021-09-09] MEDS: dexAMETHasone 4 MG Tablet 6 MG PO (08:31)
[2021-09-09] MEDS: Enoxaparin 30 MG/0.3 ML Syringe SC ×2 (08:31→21:26)
[2021-09-09] MEDS: Pantoprazole Sodium 40 MG Tablet PO (08:31)
[2021-09-09] MEDS: Fluticasone 0.05% 1 SPRAY NASAL.SRY 2 SPRAY NASAL (08:32)
[2021-09-09] MEDS: Lisinopril 10 MG Tablet PO (08:32)
[2021-09-09] MEDS: Ezetimibe 10 MG Tablet PO (08:32)
[2021-09-09] MEDS: Aspirin E.C. 81 MG Tablet PO (08:32)
[2021-09-09] MEDS: Multivitamins,Therapeutic Tablet 1 TABLET PO (08:32)
--- NOTE | 2021-09-09 11:00 | PN.HOSP_ITS ---
Subjective Subjective Patient seen and examined. He tells me he is feeling better today. He has no active complaints and had an uneventful night. Review of systems otherwise negative. He is on 2 L of oxygen. CPK was 990 and LDH was 444. D dimer was 1.47, but CTA of the chest was negative for PE. Objective Data Objective Data Vital Signs: Vital Signs Temp Pulse Resp BP Pulse Ox 97.9 F 92 16 142/88 H 96 09/09/21 09:22 09/09/21 10:54 09/09/21 09:22 09/09/21 09:22 09/09/21 09:22 Oxygen Flow Rate (L/min) 2 Oxygen Delivery Method Nasal Cannula Weight: 224 lb 15.99 oz Body Mass Index (BMI) 30.5 Intake & Output: Intake and Output for Last 24 Hours 09/07/21 09/08/21 09/09/21 23:59 23:59 23:59 Intake Total 500 / 700 550 / 550 Output Total 100 / 100 Balance 500 / 600 450 / 450 Lab / Micro Data Result Diagrams: 09/09/21 06:29 09/09/21 06:29 Labs: Laboratory Results - last 24 hr 09/08/21 12:40: WBC 6.8, RBC 4.49 L, Hgb 12.6 L, Hct 38.1 L, MCV 84.9, MCH 28.1, MCHC 33.1, RDW Std Deviation 40.0, RDW Coeff of Arleen 13.0, Plt Count 158, MPV 11.6, Immature Gran % (Auto) 0.600, Neut % (Auto) 86.6 H, Lymph % (Auto) 9.4 L, [place] % (Auto) 3.4, Eos % (Auto) 0.0, Baso % (Auto) 0.0, Absolute Neuts (auto) 5.9, Absolute Lymphs (auto) 0.64 L, Nucleated RBC % 0 09/08/21 12:40: Sodium 132 L, Potassium 3.7, Chloride 99, Carbon Dioxide 27.0, A nion Gap 6, BUN 34 H, Creatinine 1.55 H, Estim Creat Clear Calc 45.79, Est GFR (MDRD) Af Amer 57 L, Est GFR (MDRD) Non-Af 47 L, BUN/Creatinine Ratio 21.9 H, Glucose 171 H, Calcium 9.3, Total Bilirubin 0.50, AST 68 H, ALT 37, Alkaline Phosphatase 56, Total Protein 8.0, Albumin 3.1 L, Globulin 4.9 H, Albumin/Globulin Ratio 0.6 L 09/08/21 12:40: PT 13.8, INR 1.1, Fibrinogen > 900 H, D-Dimer Quant (PE/DVT) 1.47 H* 09/08/21 12:40: Lactate Dehydrogenase 444 H, Total Creatine Kinase 990 H 09/08/21 12:40: B-Natriuretic Peptide 78.6 09/08/21 12:40: Procalcitonin 1.31 H 09/08/21 13:15: Lactic Acid 1.6 09/09/21 06:29: WBC 5.8, RBC 4.05 L, Hgb 11.5 L, Hct 33.9 L, MCV 83.7, MCH 28.4, MCHC 33.9, RDW Std Deviation 40.3, RDW Coeff of Arleen 13.2, Plt Count 155, MPV 10.6, Immature Gran % (Auto) 0.500, Neut % (Auto) 84.1 H, Lymph % (Auto) 9.5 L, [place] % (Auto) 5.7, Eos % (Auto) 0.0, Baso % (Auto) 0.2, Absolute Neuts (auto) 4.9, Absolute Lymphs (auto) 0.55 L, Nucleated RBC % 0, Differential Comment SCANNED 09/09/21 06:29: Sodium 136, Potassium 4.0, Chloride 107, Carbon Dioxide 20.0 L, Anion Gap 9, BUN 33 H, Creatinine 1.09, Estim Creat Clear Calc 69.22, Est GFR (MDRD) Af Amer 86, Est GFR (MDRD) Non-Af 71, BUN/Creatinine Ratio 30.3 H, Glucose 134 H, Calcium 8.5, Total Bilirubin 0.30, AST 59 H, ALT 33, Alkaline Phosphatase 46, Total Protein 6.5, Albumin 2.4 L, Globulin 4.1, Albumin/Globulin Ratio 0.6 L Micro: Microbiology 09/08/21 22:40 Urine, Clean Catch Legionella Antigen - Final 09/08/21 22:40 Urine, Clean Catch Streptococcus pneumoniae Antigen (M - Final Radiography Diagnostic Testing: Radiology Impression Chest X-Ray 09/08/21 12:38 IMPRESSION: There has been a progression of the bilateral pulmonary infiltrates worse in the left hemithorax. Electronically Signed: Andrea Elizabeth MD at 13:01 EST , Service support , Chest CTA 09/08/21 20:10 IMPRESSION: 1. Moderate consolidation and groundglass edema is scattered throughout both lungs, with basilar predominance. These findings are consistent with Covid 19 pneumonia. 2. No demonstrated pulmonary embolism or arterial dissection. Electronically Signed: Mark Gonzalez MD at 22:41 EST , Service support , Physical Exam Const alert, oriented x3 and no apparent distress General Appearance: cooperative Exam Limitations: no limitations HEENT normocephalic, head/scalp atraumatic, hearing grossly normal bilaterally and moist oral mucous membranes Head and Scalp: normocephalic Eyes PERRL, EOMs intact bilaterally and conjunctivae normal Neck no lymphadenopathy and supple Resp Resp Narrative: diminished breath sounds bibasally, no wheezes or crackles. On 2L of xoygen by nasal canula Cardio regular rate, regular rhythm, S1 normal heart sound, S2 normal heart sound and no murmurs GI normal to inspection, nondistended, normoactive bowel sounds, soft to palpation, non-tender and non-distended Extremity normal to inspection, full ROM and no clubbing, cyanosis or edema Peripheral Pulses: Yes pulses 2+ throughout Skin no rashes or lesions noted Neuro oriented x3, CN's II-XII intact bilaterally and moves all extremities Sensorium / Orientation: awake and alert Psych affect normal Assessment & Plan Assessment/Plan (1) Pneumonia due to 2019-nCoV: (2) Acute respiratory failure with hypoxia: PLAN: #Acute hypoxic respiratory failure due to covid 19 pneumonia * on 2L of oxygen. Feels much better. * D dimer was elevated, but CTA of the chest was negative for PE * on decadron and remdesivir. * breathing treatment with bronchodilators. * sputum culture pending * #Hypertension: on lisinopril #CAD s/p CABG x 5; on aspirin and ezetimibe. #History of prostate cancer:s/p resection. Stable. #History of colon cancer: stable . s/p colectomy. follow with oncology on outpatient basis. #Hyperlipidemia: on ezetimibe #GERD: on esomeprazole and sucralfate DVT prophylaxis: lovenox CODE STATUS: full code Charges/Coding Visit Charges Inpatient E&M: 70053 Subs Hosp L2
--- NOTE | 2021-09-09 15:11 | CASEMGMT ---
LOGAN VILLALTA Assessment: Initial transition planning/care coordination assessment. RN PAWAN introduced self and role at [facility], pt voices understanding and consents to assessment. Pt is currently on 2L nc and speaks in full sentences. Pt is A/Ox4 and answers all questions appropriately but is forgetful of names at times. Pt is vaccinated for COVID and states no concerns getting resources once home. Care providers, pharmacy, and demographics verified. Presentation: Pt states is COVID + and had monoclonal infusion last but increased SOB today Admitting dx: Acute hypoxic resp failure d/t COVID PCP: Geraldinearreiandrea Specialists: Dennise, onc; , endocrinology Preferred [facility]acy: [facility] Insurance: [employer] A/B, [employer] Prescription Benefit: Yes Living Will/HPOA: Pt has LW/HPOA and is aware that they are on file at [facility]. Pt's sig other, Ladonna Basilio, is HPOA. LNOK: Ladonna Basilio, sig other/HPOA Living Arrangements: Pt lives with sig other on main level of 2 story home and states no concerns at home. Pt is independent with ADL's but sig other assists, if needed. Transportation: Pt drives self or sig other drives and states no transportation concerns. DME/HHC: Pt states has a cane and tub bench and states no need for any further DME. Pt states no preference for DME company, if qualifies for home oxygen at discharge. Green sheet on chart for home oxygen. Pt states no hx of SNF, but has had [facility] in past. Pt states no concerns with going home at time of discharge. Pt is retired. Pt states does not smoke cigarettes or drink ETOH. Pt states no further concerns/needs. CM to follow for any further discharge planning/needs. Advised pt to ask for CM if any further questions/concerns/needs arise, voices understanding. Pt Goal: Home Plan: Home, pending home oxygen testing. SStaten LOGAN VILLALTA
[2021-09-09] MEDS: 0.9% Saline Lock 10 ML Syringe IV (21:27)
[2021-09-10] VITALS (11 sets, daily range): BP systolic 122–139; BP diastolic 54–78; PULSE 63–84; RESP 15–18; TEMP 36.3–36.4; O2SAT 92–96
[2021-09-10] MEDS: Sucralfate 1 GM Tablet PO ×2 (06:08→11:24)
[2021-09-10] MEDS: Acetaminophen 325 MG Tablet 650 MG PO (06:08)
[2021-09-10 07:36] LABS: Absolute Lymphocyte Count 0.49 X10^3/uL (0.83-4.51); Absolute Neutrophil Count 2.7 X10^3/uL (2.0-7.7); Hematocrit 34.5 % (40-54); Hemoglobin 11.3 g/dL (13.0-16.5); Lymphocyte # 0.49 X10^3/ul (0.83-4.51); Lymphocyte % 13.7 % (19-41); Mean Corp Hgb Conc 32.8 g/dL (32-36); Mean Corpuscular Hgb 28.2 pg (27.0-32.0); Mean Platelet Vol. 10.8 fl (6.2-12.0); Monocyte# 0.35 X10^3/uL; Monocyte% 9.8 % (0-10); NRBC Flagged by Analyzer 0 % (0-5); Neutrophil # 2.71 X10^3/uL (2.7-7.7); Neutrophil % 75.7 % (47-70); POSITIVE DIFFERENTIAL YES; Platelet Count 169 K/mm3 (150-450); RBC Distribution Width CV 13.3 % (11.6-14.6); RBC Distribution Width SD 41.7 fl (35.1-43.9); Red Blood Count 4.01 M/mm3 (4.6-6.2); White Blood Count 3.6 K/mm3 (4.4-11.0)
[2021-09-10 07:42] LABS: Differential Indicated SCAN CRITERIA MET
[2021-09-10 08:07] LABS: ALB/GLOB Ratio 0.6 RATIO (0.9-2.4); AST(SGOT) 59 U/L (15-37); Alanine Aminotransfer ALT/SGPT 43 U/L (16-61); Albumin, Serum 2.4 g/dL (3.2-5.0); Alkaline Phosphatase 49 U/L (45-117); Anion Gap 8 (5-15); BUN 37 mg/dL (7-18); BUN/Creat Ratio 34.6 RATIO (10-20); Calcium,Total 8.6 mg/dL (8.5-10.1); Chloride 108 mmol/L (98-107); Creatinine, Serum 1.07 mg/dL (0.70-1.30); EST Glomerular Filtration Rate 72 mL/min (>60); Est Glom Filt Rate - Afr Amer 88 mL/min (>60); Estimated Creatinine Clearance 70.51 ml/min; Globulin 4.1 g/dL (2.2-4.2); Glucose 215 mg/dL (74-106); Potassium 3.9 mmol/L (3.5-5.1); Protein, Total 6.5 g/dL (6.4-8.2); Sodium Level 139 mmol/L (136-145)
[2021-09-10] MEDS: dexAMETHasone 4 MG Tablet 6 MG PO (08:14)
[2021-09-10] MEDS: Aspirin E.C. 81 MG Tablet PO (08:14)
[2021-09-10] MEDS: Multivitamins,Therapeutic Tablet 1 TABLET PO (08:14)
[2021-09-10] MEDS: Pantoprazole Sodium 40 MG Tablet PO (08:14)
[2021-09-10] MEDS: Lisinopril 10 MG Tablet PO (08:14)
[2021-09-10] MEDS: Fluticasone 0.05% 1 SPRAY NASAL.SRY 2 SPRAY NASAL (08:15)
[2021-09-10] MEDS: Enoxaparin 30 MG/0.3 ML Syringe SC (08:15)
--- NOTE | 2021-09-10 08:44 | PCS.PANDOC ---
PANDEMIC DOCUMENTATION INITIATED: Date: 04/10/2021 Time: 190
[2021-09-10 10:14] LABS: Differential Comment SCANNED
[2021-09-10] MEDS: Ezetimibe 10 MG Tablet PO (11:24)
--- NOTE | 2021-09-10 14:14 | DS.PCM_ITS ---
Providers Date of Admission: 09/08/21 Primary Care Physician: Dr. Jose Luis Larose MD Reason For Visit: ACUTE HYPOXIC RESP FAILURE DUE TO COVID Diagnosis Discharge Diagnosis (1) Pneumonia due to 2019-nCoV: Status: Acute Code(s): U07.1 - COVID-19; J12.82 - Pneumonia due to coronavirus disease 2019 (2) Acute respiratory failure with hypoxia: Status: Acute Code(s): J96.01 - Acute respiratory failure with hypoxia Medications at Discharge Home Medications acetaminophen 1,300 mg PO BID PRN PRN 10/27/20 aspirin 81 mg PO DAILY@0800 10/27/20 esomeprazole magnesium 40 mg PO DAILY 10/27/20 ezetimibe 10 mg PO DAILY 10/27/20 fluticasone propionate 2 spray NASAL DAILY 10/27/20 multivitamin 1 tab PO DAILY 10/27/20 tadalafil 5 mg PO DAILY 10/27/20 lisinopril 5 mg tablet 10 mg PO DAILY tablet 12/01/20 sucralfate 1 gram tablet 1 g PO QACHS #60 tab 01/17/21 ondansetron 4 mg PO Q6H PRN #7 tab 09/04/21 apixaban [Eliquis] 2.5 mg PO BID #28 tab 09/10/21 dexamethasone 6 mg PO DAILY #8 tab 09/10/21 Hospital Course Operations None Procedures None Summary of Care Provided Minutes Spent on Discharge: 45 Hospital Course: ATA DE LA TORRE, is a 70 M with an extensive PMH as outlined who was admitted via the ED on 09/08/2021 with a complaint of shortness of breath. He was diagnosed with covid and received the monoclonal antibody infusion the night before admission. His symptoms started on Aug 30, and he was put on dexamethasone and referred for the monoclonal antibody which he received the night before admission. He became short of breath today, and his significant other said his saturation was as low as 82% on room air at home, and so came in to the ED. He denied any fever, chills, chest pain, but admitted to nausea, vomiting and diarrhea at home. . He desaturated to 87% whilst on 4L in the ED. He is vaccinated, and received his last dose of vaccine in November 2020.. Vitals were BP of 144/87, TN of 97, RR of 26 and he was saturating at 93% on 3L of oxygen. CBC showed hb of 12.6, platelets of 158 and Hb of 12.6. BMP showed sodium of 132 with creatinine of 1.55 and potassium of 3.7. CXR showed progression of bilateral pulmonary infiltrates worse in the left hemithorax. He was admitted to be managed for acute hypoxic respiratory failure due to covid 19 pneumonia. He was started on remdesivir and Decadron. He was put on oxygen and this was titrated to maintain saturation above 90%. Shortness of breath gradually improved and he felt much better. He had a walking pulse ox on 09/10/2021 which showed that he did not require any home oxygen. Patient remained stable and was discharged home on 09/10/2021 on p.o. Decadron 6 mg daily for 8 days to complete a 10-day course. Of note, he had a CTA which was negative for any evidence of PE. He has remained in self-isolation till September 19, 2021 to do complete a 20-day course of isolation Patient seen and examined prior to discharge. He felt well and had no active complaints. Review of systems otherwise negative. Labs and vitals reviewed. Home medication reviewed and reconciled. Due to his elevated D-dimer of 1.47, he was discharged on p.o. Eliquis 2.5 mg twice daily for 2 weeks as th romboprophylaxis against COVID. Physical Exam Const alert, oriented x3 and no apparent distress General Appearance: cooperative, comfortable and well kempt Exam Limitations: no limitations HEENT normocephalic, head/scalp atraumatic, hearing grossly normal bilaterally and moist oral mucous membranes Eyes PERRL, EOMs intact bilaterally and conjunctivae normal Neck no lymphadenopathy and supple Resp Resp Narrative: diminished breath sounds bibasally, no wheezes or crackles. On 2L of xoygen by nasal canula, and was successfully weaned off of room air. Cardio regular rate, regular rhythm, S1 normal heart sound, S2 normal heart sound and no murmurs GI normal to inspection, nondistended, normoactive bowel sounds, soft to palpation, non-tender and non-distended Extremity normal to inspection, full ROM and no clubbing, cyanosis or edema Skin no rashes or lesions noted Neuro oriented x3, CN's II-XII intact bilaterally and moves all extremities Sensorium / Orientation: awake and alert Psych affect normal Weight / BMI Weight Weight: 225 lb 1.471 oz Body Mass Index (BMI) 30.5 ABG / Lab / Microbiology Data Result Diagrams: 09/10/21 05:50 09/10/21 05:50 Laboratory: Laboratory Results - last 24 hr 09/10/21 05:50: WBC 3.6 L, RBC 4.01 L, Hgb 11.3 L, Hct 34.5 L, MCV 86.0, MCH 28.2, MCHC 32.8, RDW Std Deviation 41.7, RDW Coeff of Arleen 13.3, Plt Count 169, MPV 10.8, Immature Gran % (Auto) 0.800, Neut % (Auto) 75.7 H, Lymph % (Auto) 13.7 L, [place] % (Auto) 9.8, Eos % (Auto) 0.0, Baso % (Auto) 0.0, Absolute Neuts (auto) 2.7, Absolute Lymphs (auto) 0.49 L, Nucleated RBC % 0, Differential Comment SCANNED, Diff Path Review December09/10/21 05:50: Sodium 139, Potassium 3.9, Chloride 108 H, Carbon Dioxide 23.0, Anion Gap 8, BUN 37 H, Creatinine 1.07, Estim Creat Clear Calc 70.51, Est GFR (MDRD) Af Amer 88, Est GFR (MDRD) Non-Af 72, BUN/Creatinine Ratio 34.6 H, Glucose 215 H, Calcium 8.6, Total Bilirubin 0.40, AST 59 H, ALT 43, Alkaline Phosphatase 49, Total Protein 6.5, Albumin 2.4 L, Globulin 4.1, Albumin/Globulin Ratio 0.6 L Microbiology: Microbiology 09/08/21 22:40 Urine, Clean Catch Legionella Antigen - Final 09/08/21 22:40 Urine, Clean Catch Streptococcus pneumoniae Antigen (M - Final D/C Instructions Discharge Diet: Low fat / Low cholesterol Discharge Activity: Return to Normal Activity Weight Bearing Status: Weight bearing as tolerated Call your doctor if you observe: Fever of 101 or Higher, Shortness of breath, Dizziness, Swelling in the ankles, Chest pain, Increased palpitations (irregular heartbeat) and Uncontrolled pain Meaningful Use Info Meaningful Use Diagnoses (Choose all that apply): None applicable Discharge Plan Admission Admit Date/Time: 09/08/21 16:56 Primary Reason for Your Visit: acute hypoxic respiratory failure due to covid Attending Provider: Tg Potter Primary Care Provider: Jose Luis Larose Instructions Patient Instructions: Coronavirus Disease 2019 (COVID-19): Overview Additional Instructions / Restrictions: remain in self isolation till Sep 19, 2021 Discharge Orders/Prescriptions Prescriptions: New Eliquis 2.5 mg tablet 2.5 mg PO BID Qty: 28 RF: 0 dexamethasone 6 mg tablet 6 mg PO DAILY Qty: 8 RF: 0 Continued multivitamin 1 TABLET tablet 1 tab PO DAILY RF: 0 aspirin 81 MG tablet 81 mg PO DAILY@0800 RF: 0 acetaminophen 650 MG tablet extended release 1,300 mg PO BID PRN PRN (Reason: ARTHRITIS) RF: 0 esomeprazole magnesium 40 MG capsule,delayed release(DR/EC) 40 mg PO DAILY RF: 0 fluticasone propionate 16 GM spray,suspension 2 spray NASAL DAILY RF: 0 ezetimibe 10 MG tablet 10 mg PO DAILY RF: 0 tadalafil 5 MG tablet 5 mg PO DAILY RF: 0 lisinopril 5 mg tablet 10 mg PO DAILY RF: 0 ondansetron 4 mg tablet,disintegrating 4 mg PO Q6H PRN (Reason: nausea and vomiting) Qty: 7 RF: 0 sucralfate [Carafate] 1 gram tablet 1 g PO QACHS Qty: 60 RF: 0 Discontinued dexamethasone [Decadron] 6 mg tablet 6 mg PO DAILY 7 Days Qty: 7 RF: 0 Referrals / Follow Up: Jose Luis Larose MD [Primary Care Provider] - Within 2 Weeks Disposition Disposition (needs filled in before D/C Order can be placed): Home, Self Care Charges/Coding Visit Charges Inpatient E&M: 90516 Disch Hosp
[2021-09-11 14:21] LABS: Pathologist Review Reviewed
== END 2021-09-10 15:13 | disposition home or self-care (01) | DRG 177 ==
LOC: ED 16:40 → MS3 17:10
PROVIDERS: Admitting Provider Student in an Organized Health Care Education/Training Program; Emergency Provider Emergency Medicine; PCP Family Medicine; Visit Provider Student in an Organized Health Care Education/Training Program
DX: U07.1 COVID-19 (principal); J12.82 Pneumonia due to coronavirus disease 2019; J96.01 Acute respiratory failure with hypoxia; E11.9 Type 2 diabetes mellitus without complications; I25.10 Atherosclerotic heart disease of native coronary artery without angina pectoris; I10 Essential (primary) hypertension; E78.5 Hyperlipidemia, unspecified; K21.9 Gastro-esophageal reflux disease without esophagitis; R19.7 Diarrhea, unspecified; E66.9 Obesity, unspecified; Z68.33 Body mass index [BMI] 33.0-33.9, adult; Z86.14 Personal history of Methicillin resistant Staphylococcus aureus infection; Z85.46 Personal history of malignant neoplasm of prostate; Z95.1 Presence of aortocoronary bypass graft; Z90.79 Acquired absence of other genital organ(s); Z90.49 Acquired absence of other specified parts of digestive tract; Z85.038 Personal history of other malignant neoplasm of large intestine; Z23 Encounter for immunization
CPT/HCPCS: 36415; 71045; 71275; 80053; 82550; 83605; 83615; 83880; 84145; 85025; 85379; 85384; 85610; 87449; 93005; 94762; 97110; 97161; 97165; 99251; 99285; J7030; J7050; M0245; Q0245; Q9967; A4216; G0463; J0248

== ENCOUNTER 2021-10-31 12:18 | Outpatient (CLI) | payer MEDICARE, BC, SELFPAY ==
[2021-10-31 12:50] LABS: Absolute Lymphocyte Count 1.61 X10^3/uL (0.83-4.51); Absolute Neutrophil Count 3.5 X10^3/uL (2.0-7.7); Basophil# 0.06 X10^3/uL; Eosinophil# 0.09 X10^3/uL; Eosinophils% 1.6 % (0-5); Hematocrit 38.8 % (40-54); Hemoglobin 12.2 g/dL (13.0-16.5); Lymphocyte # 1.61 X10^3/ul (0.83-4.51); Lymphocyte % 27.9 % (19-41); Mean Corp Hgb Conc 31.4 g/dL (32-36); Mean Corpuscular Hgb 27.4 pg (27.0-32.0); Mean Platelet Vol. 11.4 fl (6.2-12.0); Monocyte% 8.7 % (0-10); NRBC Flagged by Analyzer 0 % (0-5); Neutrophil % 60.5 % (47-70); Platelet Count 150 K/mm3 (150-450); RBC Distribution Width CV 13.7 % (11.6-14.6); RBC Distribution Width SD 43.7 fl (35.1-43.9); Red Blood Count 4.46 M/mm3 (4.6-6.2); White Blood Count 5.8 K/mm3 (4.4-11.0)
[2021-10-31 13:25] LABS: Ferritin 25 ng/mL (26-388); Iron 58 ug/dL (65-175); Iron Binding Capacity,Total 308 ug/dL (250-450); PERCENT IRON SATURATION 18.8 % (15.0-55.0)
[2021-11-01 13:36] LABS: Carcinoembryonic Antigen 3.3 ng/mL (0.0-4.7)
== END 2021-10-31 23:59 | disposition home or self-care (01) ==
LOC: LAB 12:20
PROVIDERS: PCP Family Medicine; Referring Provider Internal Medicine Hematology & Oncology; Visit Provider Internal Medicine Hematology & Oncology
DX: D50.0 Iron deficiency anemia secondary to blood loss (chronic) (principal); C18.2 Malignant neoplasm of ascending colon; C80.1 Malignant (primary) neoplasm, unspecified; Z85.46 Personal history of malignant neoplasm of prostate
CPT/HCPCS: 36415; 82378; 82728; 83540; 83550; 85025

== ENCOUNTER 2022-01-30 06:16 | Day surgery (SDC) | payer MEDICARE, BC, SELFPAY ==
[2022-01-30] VITALS (7 sets, daily range): BP systolic 115–143; BP diastolic 73–87; PULSE 51–73; RESP 18; TEMP 36.5–36.6; O2SAT 97–100; BMI 31.7
--- NOTE | 2022-01-30 | IMM_PTH ---
PATIENT: ATA DE LA TORRE LOC: EN U#:[id number] AGE/SX: 71/M ROOM: RE01/30/[address]: Dr. Bronson Jacobson MD : 1950 BED: DIS: 01/30/2022 SPEC #: [id number] RECD: 01/31/22 11:51 STATUS: TAWANDA REMaverick #: [id number] AWILDA: 01/30/22 00:[address]: Bronson Jacobson DEPT: IMMUNOHISTOCHEMISTRY RECD BY: Yeimy Ortega ENTERED: 01/31/22 11:52 SP TYPE: IMMUNO OTHR DR: Dr. Jose Luis Larose MD Tissues: Gastric mucous membrane Procedures: P53 (initial) KI-67 (add) PHYSICIAN & [place] [id number] SPECIMEN INFORMATION: Tissue Source: Gastroesophageal junction Clinical Info: Iron deficiency anemia, colon cancer, Mendoza?s esophagus Specimen Number: [id number] CPT code: 41252, 73340 METHODOLOGY: Deparaffinized sections of prefer/formalin-fixed tissue or PAP/DQ stained slides are incubated with monoclonal/polyclonal antibodies/oligonucleotide probes. Localization is made via biotin free immunoperoxidase method. Appropriate controls are performed and reacted as expected. Results on target cell population are indicated in the following table: RESULTS: ANTIBODY / CLONE RESULT P53 (DO-7) negative Ki-67 (30-9) positive, very low These tests were developed and their performance characteristics determined by [facility]. They may not have been cleared or approved by the U.S. Food and Drug Administration. The FDA has determined that such clearance or approval is not necessary. The above immunohistochemical/dualISH markers are ordered and reviewed by the Pathologist. INTERPRETATION: Gastroesophageal junction, biopsy: Negative for dysplasia. DARIAN:florencia 02/01/2022
--- NOTE | 2022-01-30 06:40 | PCM.HP.BLA ---
History and Physical Date of Admission: 01/30/22 Intake Vital Signs 12/28/21 09:44 Height 6 ft Weight: 240 lb 8 oz BMI 32.5 BP 158/68 H Blood Pressure Location Lt brachial Position Sitting Respiration 18 Pulse 70 Pulse Source NIBP Temp 97.8 F Temp Source Temporal Intake Visit Reasons: 1 Y FU COLONOSCOPY Chief Complaint: 1 year colonoscopy Cst Required: No Is patient in pain?: No Allergies Ijlfchc-CND-IsC Reductase Inhibitor [Gatudne-Esz-Bns Reductase Inhibitor] Adverse Reaction (Severe, Verified 12/28/21 09:45) Other Medications acetaminophen 1,300 mg PO BID PRN PRN 10/27/20 [History Confirmed 12/28/21] aspirin 81 mg PO DAILY@0800 10/27/20 [History Confirmed 12/28/21] esomeprazole magnesium 40 mg PO DAILY 10/27/20 [History Confirmed 12/28/21] ezetimibe 10 mg PO DAILY 10/27/20 [History Confirmed 12/28/21] fluticasone propionate 2 spray NASAL DAILY 10/27/20 [History Confirmed 12/28/21] multivitamin 1 tab PO DAILY 10/27/20 [History Confirmed 12/28/21] tadalafil 5 mg PO DAILY 10/27/20 [History Confirmed 12/28/21] lisinopril 5 mg tablet 10 mg PO DAILY tablet 12/01/20 [History Confirmed 12/28/21] [facility] Medical History Adenocarcinoma Alcohol use Anemia 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 BPH (benign prostatic hyperplasia) CAD (coronary artery disease) Chronic neck pain Chronic sinusitis GERD (gastroesophageal reflux disease) Head trauma History of MRSA infection History of neck injury History of prostate cancer History of prostate cancer History of stress test Hyperlipidemia Hypertension Iron deficiency anemia Lung nodules Pneumonia due to 2019-nCoV Uncontrolled type 2 diabetes mellitus Surgical History History of colonoscopy (~2010) History of heart bypass surgery (~2010) History of neck surgery (~2017) History of plastic surgery History of prostatectomy (~2010) S/P colectomy Family History Other Cancer Heart disease Hypertension Social History household members: spouse Smoking Status: Never smoker second hand exposure: No details: RARELY substance use type: does not use seatbelt use: always do you feel safe at home: Yes HPI HPI HPI: ATA DE LA TORRE, is a 71 M who presents to the office today for surveillance colonoscopy and EGD. Patient has a history of colon cancer and had right hemicolectomy. Patient also has a history of Mendoza's esophagus. The patient is currently experiencing no issues except for fatigue. Patient was recently admitted in August for COVID and has had lack of energy since then. ROS General General: Yes fatigue; No weight change HEENT HEENT: No difficulty swallowing Endo Endocrine: No thyroid disease Musc Musculoskeletal: No back problems or arthritis Cardio Cardiovascular: No pacemaker, heart disease, atrial fibrillation, high blood pressure, heart attack, heart stent, palpitations or chest pain Psych Psychiatric: No depression or anxiety Resp Respiratory: No shortness of breath, No cough, No COPD, No asthma and No emphysema Gastro Gastrointestinal: No abdominal pain, No nausea or vomiting, No diarrhea, No constipation, No blood in stool, No acid reflux, No hemorrhoids, No ulcers, No gallbladder problem and No black,tarry stools Aidan Hematologic: No blood thinners Exam Const General: cooperative Orientation: alert and oriented x3 HENMT Head: normal to inspection Neck Neck: normal visual inspection and full ROM Chest Chest palpation & inspection: normal inspection of the chest Resp Effort & Inspection: normal respiratory effort Auscultation: clear to auscultation bilaterally Cardio Rate: regular rate Rhythm: regular rhythm GI Inspection: non-distended Palpation: soft and nontender Skin General: no rashes or lesions noted Neuro General: patient alert and patient oriented x3 Extrem General: full ROM Psych Appearance: grossly normal Mental Status: mental status grossly normal Assessment and Plan Assessment and Plan (1) Iron deficiency anemia: Status: Chronic Qualifiers: Iron deficiency anemia type: chronic blood loss Qualified Code(s): D50.0 - Iron deficiency anemia secondary to blood loss (chronic) (2) Colon cancer: Status: Acute Qualifiers: Colon location: ascending Qualified Code(s): C18.2 - Malignant neoplasm of ascending colon (3) 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 Bronson Jacobson MD: I discussed EGD and colonoscopy with the patient. I will perform biopsies of the distal esophagus for Mendoza's. I explained endoscopy in detail to the patient. I explained the risks including but not limited to stroke or heart attack with anesthesia, perforation of the GI tract, bleeding, infection. I explained that any of these could necessitate further emergency surgery. The patient understands and all questions were answered sufficiently. The patient wishes to proceed with procedure. Bronson Jacobson MD Pager: [facility] [address] [place] [address] [address] [place] [address] Office: I have seen and reexamined the patient and there are no changes
[2022-01-30] MEDS: Lactated Ringers 1,000 ML 15 ML IV (07:03)
--- NOTE | 2022-01-30 07:30 | EGD_PTH ---
PATIENT: ATA DE LA TORRE LOC: EN U#:[id number] AGE/SX: 71/M ROOM: RE01/30/[address]: Dr. Bronson Jacobson MD : 1950 BED: DIS: 01/30/2022 SPEC #: [id number] RECD: 01/30/22 11:05 STATUS: TAWANDA KHOI #: [id number] AWILDA: 01/30/22 07:[address]: Bronson Jacobson DEPT: SURGICAL PATHOLOGY RECD BY: Lexy Vickers ENTERED: 01/30/22 11:41 SP TYPE: EGD BIOPSY OT DR: Dr. Jose Luis Larose MD Tissues: Stomach, NOS Procedures: Special Stain Group II Surgery Specimen Level IV Alcian Blue/PAS (control) HEADER OPERATION: Colonoscopy, EGD with biopsy (MAC) PRE-OP DIAGNOSIS: Iron deficiency anemia, colon cancer, Mendoza?s esophagus TISSUE SUBMITTED: Gastroesophageal junction MICROSCOPIC DIAGNOSIS Gastroesophageal junction, biopsy: Fragments of gastric mucosa with extensive intestinal metaplasia. No evidence of dysplasia. Mild chronic inflammation. See comment. AM:florencia 01/31/2022 COMMENT Immunohistochemistry ([id number]) for P53 and Ki-67 will be performed and results will be reported separately. Alcian blue/PAS stain with matched control supports the above diagnosis. Case has been reviewed in consultation with Dr. Salmeron who concurs with the above diagnosis. IDC:DARIAN MICROSCOPIC DESCRIPTION Slides are reviewed. GROSS DESCRIPTION Received in fixative is one container labeled with the patient's name and designated GE junction biopsy. The specimen consists of two irregular fragments of light troncoso soft tissue that in aggregate measure 0.5 x 0.2 x 0.1 cm. The specimen is totally submitted in one cassette. / DARIAN:florencia 01/30/2022 TC:3 CPT: 67122, 56149
--- NOTE | 2022-01-30 08:04 | OP.CCLET_ITS ---
01/30/2022 Jose Luis Larose [address] [place] [address] [place] [address] Re : Upper GI endoscopy procedure for Sekou Fredy Dear Dr. Larose This procedure was performed on Sunday, January 30, 2022. 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 Biopsied. - Medium-sized hiatal hernia. - Normal examined duodenum. Recommendations : - Discharge patient to home. - Resume previous diet. - Continue present medications. - Await pathology results. - Repeat upper endoscopy in 3 years for surveillance. My findings are described in the full procedure note, which is enclosed. If I can be of further assistance, please feel free to contact me at Doctor phone number(s): , Work: . Sincerely, Bronson Jacobson MD 01/30/2022 8:03:33 AM This report has been signed electronically.
--- NOTE | 2022-01-30 08:04 | OP.EGD_ITS ---
Patient Name: Sekou Daniel Procedure Date: 01/30/2022 7:30 AM Date of : 1950 Age: 71 Procedure: Upper GI endoscopy Indications: Surveillance for malignancy due to personal history of Mendoza's esophagus Providers: Bronson Jacobson MD Medicines: Monitored Anesthesia Care Patient Profile: This is a 71 year old male. Refer to note in patient chart for documentation of history and physical. Complications: No immediate complications. Procedure: Pre-Anesthesia Assessment: - Prior to the procedure, a History and Physical was performed, and patient medications and allergies were reviewed. The patient's tolerance of previous anesthesia was also reviewed. The risks and benefits of the procedure and the sedation options and risks were discussed with the patient. All questions were answered, and informed consent was obtained. Prior Anticoagulants: The patient has taken no previous anticoagulant or antiplatelet agents. After reviewing the risks and benefits, the patient was deemed in satisfactory condition to undergo the procedure. After obtaining informed consent, the endoscope was passed under direct vision. Throughout the procedure, the patient's blood pressure, pulse, and oxygen saturations were monitored continuously. The gastroscope was introduced through the mouth, and advanced to the fourth part of duodenum. The upper GI endoscopy was accomplished without difficulty. The patient tolerated the procedure well. 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 The maximum longitudinal extent of these mucosal changes was 2 cm in length. Mucosa was biopsied with a cold forceps for histology in a targeted manner at the gastroesophageal junction. One specimen bottle was sent to pathology. A medium-sized hiatal hernia was present. The examined duodenum was normal. Impression: - Esophageal mucosal changes secondary to established short-segment Mendoza's disease. Biopsied. - Medium-sized hiatal hernia. - Normal examined duodenum. Recommendation: - Discharge patient to home. - Resume previous diet. - Continue present medications. - Await pathology results. - Repeat upper endoscopy in 3 years for surveillance. Procedure Code(s): --- Professional --- 40852, Esophagogastroduodenoscopy, flexible, transoral; with biopsy, single or multiple Diagnosis Code(s): --- Professional --- K22.70, 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 K44.9, Diaphragmatic hernia without obstruction or gangrene CPT copyright 2017 [employer]. All rights reserved. The codes documented in this report are preliminary and upon stone paver review may be revised to meet current compliance requirements. Bronson Jacobson MD 01/30/2022 8:03:33 AM This report has been signed electronically. Number of Addenda: 0 Note Initiated On: 01/30/2022 7:30 AM
--- NOTE | 2022-01-30 08:07 | OP.COLON_ITS ---
Patient Name: Sekou Daniel Procedure Date: 01/30/2022 7:43 AM Date of : 1950 Age: 71 Procedure: Colonoscopy Indications: High risk colon cancer surveillance: Personal history of colon cancer Providers: Bronson Jacobson MD Medicines: Monitored Anesthesia Care Patient Profile: This is a 71 year old male. Refer to note in patient chart for documentation of history and physical. Refer to note in patient chart for documentation of history and physical. Last Colonoscopy: 1 year ago. Complications: No immediate complications. Procedure: Pre-Anesthesia Assessment: - Prior to the procedure, a History and Physical was performed, and patient medications and allergies were reviewed. The patient's tolerance of previous anesthesia was also reviewed. The risks and benefits of the procedure and the sedation options and risks were discussed with the patient. All questions were answered, and informed consent was obtained. Prior Anticoagulants: The patient has taken no previous anticoagulant or antiplatelet agents. After reviewing the risks and benefits, the patient was deemed in satisfactory condition to undergo the procedure. After I obtained informed consent, the scope was passed under direct vision. Throughout the procedure, the patient's blood pressure, pulse, and oxygen saturations were monitored continuously. The colonoscope was introduced through the anus and advanced to the ileocolonic anastomosis. The colonoscopy was performed without difficulty. The patient tolerated the procedure well. The quality of the bowel preparation was good. Scope In: 7:44:07 AM Scope Withdrawal Time 0 hours 6 minutes 1 second Scope Out: 7:54:30 AM Total Procedure Duration Time 0 hours 10 minutes 23 seconds Findings: The entire examined colon appeared normal on direct and retroflexion views. Impression: - The entire examined colon is normal on direct and retroflexion views. - No specimens collected. Recommendation: - Discharge patient to home. - Resume previous diet. - Continue present medications. - Repeat colonoscopy in 1 year for surveillance. Procedure Code(s): --- Professional --- 17016, Colonoscopy, flexible; diagnostic, including collection of specimen(s) by brushing or washing, when performed (separate procedure) Diagnosis Code(s): --- Professional --- Z85.038, Personal history of other malignant neoplasm of large intestine CPT copyright 2017 [employer]. All rights reserved. The codes documented in this report are preliminary and upon gravel machine operator review may be revised to meet current compliance requirements. Bronson Jacobson MD 01/30/2022 8:07:18 AM This report has been signed electronically. Number of Addenda: 0 Note Initiated On: 01/30/2022 7:43 AM
--- NOTE | 2022-01-30 08:08 | OP.CCLET_ITS ---
01/30/2022 Jose Luis Larose [address] [place] [address] [place] [address] Re : Colonoscopy procedure for Sekou Daniel Dear Dr. Larose This procedure was performed on Sunday, January 30, 2022. My impressions and recommendations are as follows: Impressions : - The entire examined colon is normal on direct and retroflexion views. - No specimens collected. Recommendations : - Discharge patient to home. - Resume previous diet. - Continue present medications. - Repeat colonoscopy in 1 year for surveillance. My findings are described in the full procedure note, which is enclosed. If I can be of further assistance, please feel free to contact me at Doctor phone number(s): , Work: . Sincerely, Brnoson Jacobson MD 01/30/2022 8:07:18 AM This report has been signed electronically.
== END 2022-01-30 08:33 | disposition home or self-care (01) ==
LOC: EN 06:17 → AC 06:19
PROVIDERS: PCP Family Medicine; Referring Provider Family Medicine; Visit Provider Surgery
PROC: 0DJD8ZZ Inspection of Lower Intestinal Tract, Via Natural or Artificial Opening Endoscopic (ICD-10-PCS; CPT 45378; principal; 2022-01-30 07:25)
DX: Z12.11 Encounter for screening for malignant neoplasm of colon (principal); C18.2 Malignant neoplasm of ascending colon; E11.9 Type 2 diabetes mellitus without complications; K44.9 Diaphragmatic hernia without obstruction or gangrene; D50.0 Iron deficiency anemia secondary to blood loss (chronic); Z87.19 Personal history of other diseases of the digestive system; K22.70 Barrett's esophagus without dysplasia; K21.9 Gastro-esophageal reflux disease without esophagitis; I10 Essential (primary) hypertension; R91.8 Other nonspecific abnormal finding of lung field; N40.0 Benign prostatic hyperplasia without lower urinary tract symptoms; D50.9 Iron deficiency anemia, unspecified; I25.10 Atherosclerotic heart disease of native coronary artery without angina pectoris; Z85.46 Personal history of malignant neoplasm of prostate; Z79.899 Other long term (current) drug therapy; Z79.82 Long term (current) use of aspirin; Z86.16 Personal history of COVID-19
CPT/HCPCS: 43239; 88305; 88313; 88341; 88342; J7120; J2405

== ENCOUNTER → 2022-02-14 | Outpatient (CLI) | payer MEDICARE, BC, SELFPAY ==
[2022-02-14 13:40] LABS: Absolute Lymphocyte Count 2.33 X10^3/uL (0.83-4.51); Absolute Neutrophil Count 3.4 X10^3/uL (2.0-7.7); Basophil# 0.05 X10^3/uL; Basophil% 0.8 % (0-1); Eosinophil# 0.11 X10^3/uL; Eosinophils% 1.7 % (0-5); Hematocrit 41.1 % (40-54); Hemoglobin 13.5 g/dL (13.0-16.5); Lymphocyte # 2.33 X10^3/ul (0.83-4.51); Lymphocyte % 36.9 % (19-41); Mean Corp Hgb Conc 32.8 g/dL (32-36); Mean Corpuscular Hgb 27.7 pg (27.0-32.0); Mean Corpuscular Volume 84.2 fL (80-94); Mean Platelet Vol. 11.2 fl (6.2-12.0); Monocyte# 0.43 X10^3/uL; Monocyte% 6.8 % (0-10); NRBC Flagged by Analyzer 0 % (0-5); Neutrophil # 3.38 X10^3/uL (2.7-7.7); Neutrophil % 53.6 % (47-70); Platelet Count 143 K/mm3 (150-450); RBC Distribution Width CV 13.2 % (11.6-14.6); RBC Distribution Width SD 40.6 fl (35.1-43.9); Red Blood Count 4.88 M/mm3 (4.6-6.2); White Blood Count 6.3 K/mm3 (4.4-11.0)
[2022-02-14 14:08] LABS: Vitamin B12 > 2000 pg/mL (211-911)
[2022-02-14 14:09] LABS: Ferritin 26 ng/mL (26-388); Iron 100 ug/dL (65-175); Iron Binding Capacity,Total 321 ug/dL (250-450); PERCENT IRON SATURATION 31.2 % (15.0-55.0); PSA,Total- Diagnostic 0.18 ng/mL (0.0-4.0)
[2022-02-16 19:12] LABS: Carcinoembryonic Antigen 2.9 ng/mL (0.0-4.7)
== END | disposition home or self-care (01) ==
LOC: LAB 12:54
PROVIDERS: PCP Family Medicine; Referring Provider Internal Medicine Hematology & Oncology; Visit Provider Internal Medicine Hematology & Oncology
DX: D50.0 Iron deficiency anemia secondary to blood loss (chronic) (principal); C18.2 Malignant neoplasm of ascending colon; C80.1 Malignant (primary) neoplasm, unspecified; Z85.46 Personal history of malignant neoplasm of prostate
CPT/HCPCS: 36415; 82378; 82607; 82728; 83540; 83550; 84153; 85025

== ENCOUNTER → 2022-05-10 | Outpatient (CLI) | payer MEDICARE, BC, SELFPAY ==
[2022-05-10 16:38] LABS: Absolute Lymphocyte Count 2.03 X10^3/uL (0.83-4.51); Absolute Neutrophil Count 3.5 X10^3/uL (2.0-7.7); Basophil# 0.05 X10^3/uL; Basophil% 0.8 % (0-1); Eosinophil# 0.11 X10^3/uL; Eosinophils% 1.8 % (0-5); Hematocrit 38.7 % (40-54); Hemoglobin 12.6 g/dL (13.0-16.5); Lymphocyte # 2.03 X10^3/ul (0.83-4.51); Lymphocyte % 33.2 % (19-41); Mean Corp Hgb Conc 32.6 g/dL (32-36); Mean Corpuscular Hgb 28.6 pg (27.0-32.0); Mean Platelet Vol. 10.8 fl (6.2-12.0); Monocyte# 0.43 X10^3/uL; NRBC Flagged by Analyzer 0 % (0-5); Neutrophil # 3.48 X10^3/uL (2.7-7.7); Neutrophil % 56.9 % (47-70); Platelet Count 144 K/mm3 (150-450); RBC Distribution Width CV 12.9 % (11.6-14.6); RBC Distribution Width SD 41.7 fl (35.1-43.9); White Blood Count 6.1 K/mm3 (4.4-11.0)
[2022-05-10 17:09] LABS: ALB/GLOB Ratio 1.1 RATIO (0.9-2.4); AST(SGOT) 20 U/L (15-37); Alanine Aminotransfer ALT/SGPT 28 U/L (16-61); Albumin, Serum 3.7 g/dL (3.2-5.0); Alkaline Phosphatase 63 U/L (45-117); Anion Gap 6 (5-15); BUN 28 mg/dL (7-18); BUN/Creat Ratio 23.9 RATIO (10-20); Calcium,Total 9.2 mg/dL (8.5-10.1); Chloride 107 mmol/L (98-107); Creatinine, Serum 1.17 mg/dL (0.70-1.30); EST Glomerular Filtration Rate 65 mL/min (>60); Est Glom Filt Rate - Afr Amer 79 mL/min (>60); Ferritin 44 ng/mL (26-388); Globulin 3.5 g/dL (2.2-4.2); Glucose 198 mg/dL (74-106); Iron 65 ug/dL (65-175); Iron Binding Capacity,Total 305 ug/dL (250-450); PERCENT IRON SATURATION 21.3 % (15.0-55.0); Potassium 4.5 mmol/L (3.5-5.1); Protein, Total 7.2 g/dL (6.4-8.2); Sodium Level 138 mmol/L (136-145)
[2022-05-12 07:42] LABS: Carcinoembryonic Antigen 2.4 ng/mL (0.0-4.7)
== END | disposition home or self-care (01) ==
LOC: LAB 16:22
PROVIDERS: PCP Family Medicine; Referring Provider Internal Medicine Hematology & Oncology; Visit Provider Internal Medicine Hematology & Oncology
DX: D64.9 Anemia, unspecified (principal); C18.9 Malignant neoplasm of colon, unspecified; D50.9 Iron deficiency anemia, unspecified; Z85.46 Personal history of malignant neoplasm of prostate
CPT/HCPCS: 36415; 80053; 82378; 82728; 83540; 83550; 84153; 85025

== ENCOUNTER → 2022-07-04 | Outpatient (CLI) | payer MEDICARE, BC, SELFPAY ==
--- NOTE | 2022-07-04 14:36 | RAD_ITS ---
STUDY: XR Hand Min 3 Views REASON FOR EXAM: Male, 71 years old. PAIN TECHNIQUE: XR Hand Min 3 Views LEFT COMPARISON: None. FINDINGS: Normal radiocarpal articulation. Normal distal radioulnar joint. Normal visualized carpal bones. Degenerative findings of the carpal articulations. Normal carpometacarpal articulation of the thumb. Normal second through fifth carpometacarpal joints. Normal metacarpi. There is degenerative arthrosis of the metacarpophalangeal (MCP) joints. Normal interphalangeal joint of the thumb. Normal proximal and distal phalanges of the thumb. There is degenerative arthrosis of the metacarpophalangeal (MCP) joints. There is diffuse articular joint space narrowing of the proximal and distal interphalangeal joints of the second through fifth fingers, but without erosive changes or periarticular soft tissue swelling. Normal phalanges of the second through fifth fingers. Soft tissue george along the distal radius. RAD/Hand Min 3 Views IMPRESSION: Degenerative joint disease of the hand and wrist, as described above. Electronically Signed: Joaquin Hamilton MD at 21:01 EST Reading Location ID and State: [facility] / [place] , Service support ,
--- NOTE | 2022-07-04 14:36 | RAD_ITS ---
STUDY: XR Pelvis 1 or 2 Views 07/04/2022 2:50 PM REASON FOR EXAM: Male, 71 years old. PAIN Pain TECHNIQUE: XR Pelvis 1 or 2 Views COMPARISON: None FINDINGS: There is a non-specific bowel gas pattern. There are multiple calcified phleboliths.There are degenerative changes of the lumbar spine. Normal bilateral iliac wings, sacroiliac joints and visualized sacrum. Normal visualized bilateral superior and inferior pubic rami. Normal pubic symphysis. Normal ischial tuberosities. Normal visualized right femoral head. Normal right acetabulum. Normal right hip joint. Normal visualized left femoral head. Normal left acetabulum. Normal left hip joint. RAD/Pelvis 1 or 2 Views IMPRESSION: No acute findings. Electronically Signed: Joaquin Hamilton MD at 20:58 EST ,
--- NOTE | 2022-07-04 14:50 | RAD_ITS ---
STUDY: XR Hand Min 3 Views REASON FOR EXAM: Male, 71 years old. PAIN TECHNIQUE: XR Hand Min 3 Views RIGHT COMPARISON: None. FINDINGS: Normal radiocarpal articulation. Normal distal radioulnar joint. Normal visualized carpal bones. Degenerative findings of the carpal articulations. Normal carpometacarpal articulation of the thumb. Normal second through fifth carpometacarpal joints. Normal metacarpi. There is degenerative arthrosis of the metacarpophalangeal (MCP) joints. Normal interphalangeal joint of the thumb. Normal proximal and distal phalanges of the thumb. There is degenerative arthrosis of the metacarpophalangeal (MCP) joints. There is diffuse articular joint space narrowing of the proximal and distal interphalangeal joints of the second through fifth fingers, but without erosive changes or periarticular soft tissue swelling. Normal phalanges of the second through fifth fingers. RAD/Hand Min 3 Views IMPRESSION: Degenerative joint disease of the hand and wrist, as described above. Electronically Signed: Joaquin Hamilton MD at 21:02 EST Reading Location ID and State: [facility] / [place] , Service support ,
[2022-07-04 17:50] LABS: Erythrocyte Sedimentation Rate 24 mm/hr (0-20)
[2022-07-04 17:51] LABS: Absolute Lymphocyte Count 2.06 X10^3/uL (0.83-4.51); Absolute Neutrophil Count 4.3 X10^3/uL (2.0-7.7); Basophil# 0.05 X10^3/uL; Basophil% 0.7 % (0-1); Eosinophil# 0.14 X10^3/uL; Hematocrit 37.2 % (40-54); Hemoglobin 12.7 g/dL (13.0-16.5); Lymphocyte # 2.06 X10^3/ul (0.83-4.51); Lymphocyte % 29.5 % (19-41); Mean Corp Hgb Conc 34.1 g/dL (32-36); Mean Corpuscular Hgb 29.4 pg (27.0-32.0); Mean Corpuscular Volume 86.1 fL (80-94); Mean Platelet Vol. 11.5 fl (6.2-12.0); Monocyte# 0.44 X10^3/uL; Monocyte% 6.3 % (0-10); NRBC Flagged by Analyzer 0 % (0-5); Neutrophil # 4.27 X10^3/uL (2.7-7.7); Neutrophil % 61.2 % (47-70); Platelet Count 161 K/mm3 (150-450); RBC Distribution Width CV 12.6 % (11.6-14.6); RBC Distribution Width SD 39.5 fl (35.1-43.9); Red Blood Count 4.32 M/mm3 (4.6-6.2)
[2022-07-04 18:07] LABS: ALB/GLOB Ratio 1.1 RATIO (0.9-2.4); AST(SGOT) 17 U/L (15-37); Alanine Aminotransfer ALT/SGPT 24 U/L (16-61); Albumin, Serum 3.7 g/dL (3.2-5.0); Alkaline Phosphatase 72 U/L (45-117); Anion Gap 6 (5-15); BUN 22 mg/dL (7-18); BUN/Creat Ratio 22.7 RATIO (10-20); Calcium,Total 9.1 mg/dL (8.5-10.1); Chloride 106 mmol/L (98-107); Creatinine, Serum 0.97 mg/dL (0.70-1.30); EST Glomerular Filtration Rate 81 mL/min (>60); Est Glom Filt Rate - Afr Amer 98 mL/min (>60); Globulin 3.3 g/dL (2.2-4.2); Glucose 133 mg/dL (74-106); Potassium 4.4 mmol/L (3.5-5.1); Rheumatoid Factor < 10.0 IU/mL (<15); Sodium Level 137 mmol/L (136-145)
[2022-07-05 09:28] LABS: Hepatitis B Surface Antibody Non-Reactive; Hepatitis B Surface Antigen Non-Reactive (Nonreactive); Hepatitis C Antibody Non-Reactive (Nonreactive)
[2022-07-06 15:30] LABS: ANTINUCLEAR ANTIBODIES DIRECT Negative (Negative)
[2022-07-10 13:26] LABS: CCP IgG Antibodies 2 units (0-19)
== END | disposition home or self-care (01) ==
PROVIDERS: PCP Family Medicine; Referring Provider Internal Medicine Rheumatology; Visit Provider Internal Medicine Rheumatology
DX: M06.4 Inflammatory polyarthropathy (principal); M47.892 Other spondylosis, cervical region; I10 Essential (primary) hypertension; M79.643 Pain in unspecified hand; M25.559 Pain in unspecified hip
CPT/HCPCS: 36415; 72170; 73130; 80053; 85025; 85652; 86038; 86140; 86200; 86431; 86706; 86803; 87340

== ENCOUNTER → 2022-09-20 | Outpatient (CLI) | payer MEDICARE, BC, SELFPAY ==
[2022-09-20 14:28] LABS: Absolute Lymphocyte Count 1.44 X10^3/uL (0.83-4.51); Absolute Neutrophil Count 4.2 X10^3/uL (2.0-7.7); Basophil# 0.05 X10^3/uL; Basophil% 0.7 % (0-1); Eosinophil# 0.13 X10^3/uL; Eosinophils% 1.9 % (0-5); Hematocrit 41.9 % (40-54); Hemoglobin 13.6 g/dL (13.0-16.5); Lymphocyte # 1.44 X10^3/ul (0.83-4.51); Lymphocyte % 21.2 % (19-41); Mean Corp Hgb Conc 32.5 g/dL (32-36); Mean Corpuscular Hgb 28.6 pg (27.0-32.0); Mean Platelet Vol. 10.9 fl (6.2-12.0); Monocyte# 0.92 X10^3/uL; Monocyte% 13.5 % (0-10); NRBC Flagged by Analyzer 0 % (0-5); Neutrophil # 4.22 X10^3/uL (2.7-7.7); Neutrophil % 62.1 % (47-70); Platelet Count 149 K/mm3 (150-450); RBC Distribution Width CV 13.4 % (11.6-14.6); RBC Distribution Width SD 42.4 fl (35.1-43.9); Red Blood Count 4.76 M/mm3 (4.6-6.2); White Blood Count 6.8 K/mm3 (4.4-11.0)
[2022-09-20 14:56] LABS: Ferritin 192 ng/mL (26-388); Iron 72 ug/dL (65-175); Iron Binding Capacity,Total 278 ug/dL (250-450); PERCENT IRON SATURATION 25.9 % (15.0-55.0); PSA,Total- Diagnostic 0.15 ng/mL (0.0-4.0)
[2022-09-22 12:26] LABS: Carcinoembryonic Antigen 2.1 ng/mL (0.0-4.7)
== END | disposition home or self-care (01) ==
PROVIDERS: PCP Family Medicine; Visit Provider Internal Medicine Hematology & Oncology
DX: D50.9 Iron deficiency anemia, unspecified (principal); C18.2 Malignant neoplasm of ascending colon; C64.9 Malignant neoplasm of unspecified kidney, except renal pelvis; Z85.46 Personal history of malignant neoplasm of prostate
CPT/HCPCS: 36415; 82378; 82728; 83540; 83550; 84153; 85025

== ENCOUNTER → 2022-09-24 | Outpatient (CLI) | payer MEDICARE, BC, SELFPAY ==
[2022-09-24 13:35] LABS: Absolute Lymphocyte Count 1.35 X10^3/uL (0.83-4.51); Absolute Neutrophil Count 5.2 X10^3/uL (2.0-7.7); Basophil# 0.06 X10^3/uL; Basophil% 0.8 % (0-1); Eosinophil# 0.21 X10^3/uL; Eosinophils% 2.8 % (0-5); Hematocrit 37.3 % (40-54); Hemoglobin 12.4 g/dL (13.0-16.5); Lymphocyte # 1.35 X10^3/ul (0.83-4.51); Mean Corp Hgb Conc 33.2 g/dL (32-36); Mean Corpuscular Hgb 28.8 pg (27.0-32.0); Mean Corpuscular Volume 86.7 fL (80-94); Mean Platelet Vol. 10.3 fl (6.2-12.0); Monocyte# 0.66 X10^3/uL; Monocyte% 8.8 % (0-10); NRBC Flagged by Analyzer 0 % (0-5); Neutrophil # 5.17 X10^3/uL (2.7-7.7); Neutrophil % 69.2 % (47-70); Platelet Count 174 K/mm3 (150-450); RBC Distribution Width CV 13.7 % (11.6-14.6); RBC Distribution Width SD 42.7 fl (35.1-43.9); White Blood Count 7.5 K/mm3 (4.4-11.0)
[2022-09-24 14:04] LABS: ALB/GLOB Ratio 0.9 RATIO (0.9-2.4); AST(SGOT) 21 U/L (15-37); Alanine Aminotransfer ALT/SGPT 25 U/L (16-61); Albumin, Serum 3.5 g/dL (3.2-5.0); Alkaline Phosphatase 82 U/L (45-117); Anion Gap 5 (5-15); BUN 34 mg/dL (7-18); Calcium,Total 9.4 mg/dL (8.5-10.1); Chloride 108 mmol/L (98-107); Creatinine, Serum 1.31 mg/dL (0.70-1.30); EST Glomerular Filtration Rate 57 mL/min (>60); Est Glom Filt Rate - Afr Amer 69 mL/min (>60); Globulin 3.7 g/dL (2.2-4.2); Glucose 241 mg/dL (74-106); Potassium 4.9 mmol/L (3.5-5.1); Protein, Total 7.2 g/dL (6.4-8.2); Sodium Level 138 mmol/L (136-145)
== END | disposition home or self-care (01) ==
LOC: LAB 13:17
PROVIDERS: PCP Family Medicine; Referring Provider Internal Medicine Rheumatology; Visit Provider Internal Medicine Rheumatology
DX: M06.4 Inflammatory polyarthropathy (principal); Z79.899 Other long term (current) drug therapy
CPT/HCPCS: 36415; 80053; 85025

== ENCOUNTER 2022-10-09 18:32 | Emergency (ER) | payer MEDICARE, BC, SELFPAY ==
[2022-10-09 18:33] VITALS: BP 160/70; PULSE 68; RESP 18; TEMP 36.3; O2SAT 95; BMI 30.5
--- NOTE | 2022-10-09 19:30 | EDS_ITS ---
HPI History of Present Illness HPI Narrative: Patient presents with pain in his left ankle that began yesterday evening. Patient states it came on gradually. Patient denies any specific trauma or injury. Patient states the pain is constant. Patient states it is over the scar where he had his veins removed for his bypass graft. Patient describes his pain as a sharp pain. Patient states nothing makes it better and nothing makes it worse. Patient states he does have some numbness over the scar areas. Pa radhant denies any redness or swelling. Patient denies any fevers or chills. Chief Complaint: Lower Extremity Injury Informant: patient Onset/Context/Timing Onset: Yesterday Context: Gradual Onset Timing: Continuous Quality of Pain: Sharp Location: Left ankle Worsened by: Nothing Relieved by: Nothing Associated Symptoms Associated Symptoms: Positive for Parasthesia; Negative for Weakness or Loss of Funtion PFSH [facility] Medical History Adenocarcinoma Alcohol use Anemia 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 BPH (benign prostatic hyperplasia) CAD (coronary artery disease) Chronic neck pain Chronic sinusitis GERD (gastroesophageal reflux disease) Head trauma History of MRSA infection History of neck injury History of prostate cancer History of prostate cancer History of stress test Hyperlipidemia Hypertension Iron deficiency anemia Lung nodules Pneumonia due to 2019-nCoV Uncontrolled type 2 diabetes mellitus Home Medications acetaminophen 650 mg tablet,extended release 1,300 mg PO BID PRN PRN ARTHRITIS 10/27/20 [History Last Taken 12/13/20 07:30 1300 MG] aspirin 81 mg tablet,delayed release 81 mg PO DAILY@0800 HEART HEALTH 10/27/20 [History Last Taken 01/02/21 06:00] esomeprazole magnesium 40 mg capsule,delayed release 40 mg PO DAILY GERD 10/27/20 [History Last Taken 01/10/21] ezetimibe 10 mg tablet 10 mg PO DAILY CHOLESTEROL 10/27/20 [History Last Taken 10/27/20] fluticasone propionate 50 mcg/actuation nasal spray,suspension 2 spray NASAL DAILY ALLERGIES 10/27/20 [History Last Taken 10/26/20] multivitamin 1 tab PO DAILY SUPPLEMENT 10/27/20 [History Last Taken 10/27/20] tadalafil 5 mg tablet 5 mg PO DAILY urine flow 10/27/20 [History Last Taken 10/27/20] lisinopril 5 mg tablet 10 mg PO DAILY BP 12/01/20 [History Last Taken 01/30/22 05:30] acetaminophen 500 mg capsule 500 mg PO Q6H PRN pain #1 cap 12/28/21 [Rx Last Taken Unknown] ferrous sulfate 325 mg (65 mg iron) tablet (FeroSul) 325 mg PO BID 01/26/22 [History Last Taken Unknown] sulfamethoxazole 800 mg-trimethoprim 160 mg tablet (Bactrim DS) 1 tab PO DAILY 01/26/22 [History Last Taken Unknown] Allergy/AdvReac Type Severity Reaction Status Date / Time [id number]-LEV-[id number] Reductase AdvReac Severe Other Verified 10/09/22 18:33 Inhibitor [Slzevek-Cgz-Ski Reductase Inhibitor] Family History Other Cancer Heart disease Hypertension Surgical History History of colonoscopy (~2010) History of heart bypass surgery (~2010) History of neck surgery (~2017) History of plastic surgery History of prostatectomy (~2010) Hx of right hemicolectomy S/P colectomy Social History household members: spouse Smoking Status: Never smoker second hand exposure: No details: RARELY substance use type: does not use seatbelt use: always do you feel safe at home: Yes ROS ROS ED Constitutional Constitutional ED: Denies chills or fever(s) Eyes Eyes: Denies blurry vision or change in vision ENT ENT ED: Denies rhinorrhea or sore throat Cardiovascular Cardiovascular: Denies chest pain or palpitations Respiratory/Chest Respiratory/Chest: Denies cough or dyspnea Gastrointestinal Gastrointestinal: Denies nausea or vomiting Genitourinary Genitourinary ED: Denies dysuria or hematuria Musculoskeletal Musculoskeletal: Reports back pain and neck pain Integumentary Denies abscess or rash Neurologic Neurologic: Denies headache(s) or weakness Allergic/Immunologic Allergic/Immunologic ED: Denies mouth swelling or urticaria EXAM Physical Exam Const Vital Signs: 10/09/22 18:33 Temperature 97.4 F L Temperature Source Temporal Pulse Rate 68 Respiratory Rate 18 Blood Pressure 160/70 H Blood Pressure Mean 100 Pulse Ox 95 Oxygen Delivery Method Room Air Positive well nourished and well developed General Appearance ED: well developed and NAD HEENT Reports moist mucous membranes Neck full ROM and supple Extremity Extremity Narrative: There is tenderness and mild edema over the left ankle. There is no ecchymosis. There is no deformity noted. There is good range of motion. There is mild tenderness over the postsurgical scar on the medial aspect of the left distal tibia. There is no calf tenderness. There is no tenderness over the proximal fibula. There is no tenderness over the metatarsals. Pedal pulses are equal bilaterally. Sensation was intact to light touch in all digits. Capillary refill was less than 2 seconds in all digits. Neuro oriented x3, CN's II-XII intact bilaterally, moves all extremities and no sensory deficits noted Sensorium / Orientation: alert Motor Exam: strength 5/5 throughout Psych mental status grossly normal Skin no wounds MDM MDM MDM Narrative Medical decision making narrative: Differential diagnosis includes DVT, muscle strain, ankle sprain, or arthritis. Venous duplex of the left lower extremity will be obtained to assess for DVT. Radiography Diagnostic Testing: Clinical Impression(s) from Imaging Studies Venous Duplex 10/09/22 19:47 IMPRESSION: There is no demonstrated deep venous thrombosis. Electronically Signed: Joaquin Hamilton MD at 21:15 EST Reading Location ID and State: [facility] / [place] , Service support , Venous Doppler was obtained. There is no evidence of DVT. This was interpreted by the radiologist. This was also independently reviewed by myself. Treatment and Re-Evaluation Narrative: Patient was advised of his findings. Patient was instructed to ice and elevate the left leg. Patient was instructed to follow-up with his primary care physician in 5 to 7 days. Patient understood and was agreeable with the plan. All questions were answered. Discharge Plan Triage Chief Complaint: Lower Extremity Injury ED Provider: Radu Evans Dx/Rx/DC Orders Clinical Impression: Left leg pain Instructions: ED Pain, Acute, Uncertain Cause Prescriptions: No Action acetaminophen 500 mg capsule 500 mg PO Q6H PRN (Reason: pain) Qty: 1 0RF multivitamin 1 TABLET tablet 1 tab PO DAILY aspirin 81 MG tablet 81 mg PO DAILY@0800 Label Comments: pt instructed to verify if need to stop for upcoming surgery acetaminophen 650 MG tablet extended release 1,300 mg PO BID PRN PRN (Reason: ARTHRITIS) esomeprazole magnesium 40 MG capsule,delayed release(DR/EC) 40 mg PO DAILY fluticasone propionate 16 GM spray,suspension 2 spray NASAL DAILY Label Comments: USE 2 SPRAY(S) IN EACH NOSTRIL ONCE DAILY ezetimibe 10 MG tablet 10 mg PO DAILY tadalafil 5 MG tablet 5 mg PO DAILY lisinopril 5 mg tablet 10 mg PO DAILY sulfamethoxazole-trimethoprim [Bactrim DS] 800-160 mg tablet 1 tab PO DAILY ferrous sulfate [FeroSul] 325 mg (65 mg iron) tablet 325 mg PO BID Label Comments: TAKE 1 TABLET BY MOUTH THREE TIMES DAILY Primary Care Provider: Jose Luis Larose Referrals: Jose Luis Larose MD [Primary Care Provider] - 3-5 Days Disposition Disposition: Home, Self Care
--- NOTE | 2022-10-09 19:47 | US_ITS ---
STUDY: VENOUS DOPPLER ULTRASOUND - LEFT LOWER EXTREMITY REASON FOR EXAM: Male, 71 years old. LEG PAIN AND SWELLING undefined -- PAIN TECHNIQUE: Ultrasound evaluation of the deep vein system to include licona-scale imaging and compression was performed. Licona-scale imaging and Doppler sonographic evaluation, including duplex spectral analysis and qualitative color flow sonography, was performed. COMPARISON: None. FINDINGS: Common Femoral Vein: Normal compression, spontaneity and augmentation. Normal color Doppler. Common Femoral Vein/Greater Saphenous Junction: Normal compression, spontaneity and augmentation. Normal color Doppler. Superficial Femoral Proximal: Normal compression, spontaneity and augmentation. Normal color Doppler. Superficial Femoral Middle: Normal compression, spontaneity and augmentation. Normal color Doppler. Superficial Femoral Distal: Normal compression, spontaneity and augmentation. Normal color Doppler. Popliteal Vein: Normal compression, spontaneity and augmentation. Normal color Doppler. Posterior Tibial Vein: Normal compression, spontaneity and augmentation. Normal color Doppler. Peroneal Vein: Normal compression, spontaneity and augmentation. Normal color Doppler. There is no demonstrated deep venous thrombosis. US/Venous Duplex Imag/Limited/Uni IMPRESSION: There is no demonstrated deep venous thrombosis. Electronically Signed: Joaquin Hamilton MD at 21:15 EST ,
== END 2022-10-09 21:40 | disposition home or self-care (01) ==
PROVIDERS: Emergency Provider Emergency Medicine; PCP Family Medicine; Visit Provider Emergency Medicine
DX: M79.605 Pain in left leg (principal); E11.9 Type 2 diabetes mellitus without complications; I25.10 Atherosclerotic heart disease of native coronary artery without angina pectoris; I10 Essential (primary) hypertension; E78.5 Hyperlipidemia, unspecified; Z86.14 Personal history of Methicillin resistant Staphylococcus aureus infection; Z95.1 Presence of aortocoronary bypass graft; Z86.16 Personal history of COVID-19
CPT/HCPCS: 93971; 99282

== ENCOUNTER → 2022-12-19 | Outpatient (CLI) | payer MEDICARE, BC, SELFPAY ==
[2022-12-19 13:37] LABS: Absolute Lymphocyte Count 1.83 X10^3/uL (0.83-4.51); Absolute Neutrophil Count 3.2 X10^3/uL (2.0-7.7); Basophil# 0.05 X10^3/uL; Basophil% 0.9 % (0-1); Eosinophil# 0.09 X10^3/uL; Eosinophils% 1.6 % (0-5); Hematocrit 42.3 % (40-54); Hemoglobin 13.8 g/dL (13.0-16.5); Lymphocyte # 1.83 X10^3/ul (0.83-4.51); Lymphocyte % 32.8 % (19-41); Mean Corp Hgb Conc 32.6 g/dL (32-36); Mean Platelet Vol. 11.4 fl (6.2-12.0); Monocyte# 0.43 X10^3/uL; Monocyte% 7.7 % (0-10); NRBC Flagged by Analyzer 0 % (0-5); Neutrophil # 3.16 X10^3/uL (2.7-7.7); Neutrophil % 56.6 % (47-70); Platelet Count 153 K/mm3 (150-450); RBC Distribution Width CV 12.3 % (11.6-14.6); RBC Distribution Width SD 38.6 fl (35.1-43.9); RET-HE 31.4 pg (30-35); Red Blood Count 4.92 M/mm3 (4.6-6.2); Reticulocyte Count 1.28 % (0.5-1.5); White Blood Count 5.6 K/mm3 (4.4-11.0)
[2022-12-19 14:10] LABS: Ferritin 28 ng/mL (26-388); Iron 80 ug/dL (65-175); Iron Binding Capacity,Total 327 ug/dL (250-450); PERCENT IRON SATURATION 24.5 % (15.0-55.0)
== END | disposition home or self-care (01) ==
LOC: LAB 13:12
PROVIDERS: PCP Family Medicine; Referring Provider Internal Medicine Hematology & Oncology; Visit Provider Internal Medicine Hematology & Oncology
DX: D50.9 Iron deficiency anemia, unspecified (principal); C18.2 Malignant neoplasm of ascending colon; C64.9 Malignant neoplasm of unspecified kidney, except renal pelvis; Z85.46 Personal history of malignant neoplasm of prostate
CPT/HCPCS: 36415; 82378; 82728; 83540; 83550; 85025; 85045

== ENCOUNTER 2023-04-05 06:52 | Day surgery (SDC) | payer MEDICARE, BC, SELFPAY ==
[2023-04-05 07:11] VITALS: BP 128/70; PULSE 66; RESP 16; TEMP 36.1; O2SAT 99; BMI 31.4
[2023-04-05] MEDS: Lactated Ringers 1,000 ML 15 ML IV (07:20)
--- NOTE | 2023-04-05 07:53 | HP.PCM_ITS ---
History and Physical Date of Admission: 04/05/23 Intake Vital Signs 12/26/2313:14 03/07/2313:04 Height 6 ft Weight: 247 lb 4 oz BMI 33.5 BP 145/80 H 150/74 H Blood Pressure Location Rt brachial Rt brachial Position Sitting Sitting Respiration 16 17 Pulse 63 65 Pulse Source Monitor Monitor Temp 97.1 F L 97.1 F L Temp Source Temporal Pulse Oximetry (%) 95 96 Oxygen Delivery Method room air room air Intake Visit Reasons: MALIGNANT NEOPLASM OF THE LARGE INTESTINE Chief Complaint: Colon cancer follow-up Allergies Rfytaou-XZH-MtY Reductase Inhibitor [Iqwcqhe-Nyx-Wjx Reductase Inhibitor] Adverse Reaction (Severe, Verified 03/07/23 13:05) Other Medications acetaminophen 650 mg tablet,extended release 1,300 mg PO BID PRN PRN ARTHRITIS 10/27/20 [History Confirmed 03/07/23] aspirin 81 mg tablet,delayed release 81 mg PO DAILY@0800 HEART HEALTH 10/27/20 [History Confirmed 03/07/23] esomeprazole magnesium 40 mg capsule,delayed release 40 mg PO DAILY GERD 10/27/20 [History Confirmed 03/07/23] ezetimibe 10 mg tablet 10 mg PO DAILY CHOLESTEROL 10/27/20 [History Confirmed 03/07/23] fluticasone propionate 50 mcg/actuation nasal spray,suspension 2 spray NASAL DAILY ALLERGIES 10/27/20 [History Confirmed 03/07/23] multivitamin 1 tab PO DAILY SUPPLEMENT 10/27/20 [History Confirmed 03/07/23] tadalafil 5 mg tablet 5 mg PO DAILY urine flow 10/27/20 [History Confirmed 03/07/23] lisinopril 5 mg tablet 10 mg PO DAILY BP 12/01/20 [History Confirmed 03/07/23] acetaminophen 500 mg capsule 500 mg PO Q6H PRN pain #1 cap 12/28/21 [Rx Confirmed 03/07/23] ferrous sulfate 325 mg (65 mg iron) tablet (FeroSul) 325 mg PO BID 01/26/22 [History Confirmed 03/07/23] sulfamethoxazole 800 mg-trimethoprim 160 mg tablet (Bactrim DS) 1 tab PO DAILY 01/26/22 [History Confirmed 03/07/23] PFSH Medical History Adenocarcinoma Alcohol use Anemia 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 BPH (benign prostatic hyperplasia) CAD (coronary artery disease) Chronic neck pain Chronic sinusitis GERD (gastroesophageal reflux disease) Head trauma History of MRSA infection History of neck injury History of prostate cancer History of prostate cancer History of stress test Hyperlipidemia Hypertension Iron deficiency anemia Lung nodules Pneumonia due to 2019-nCoV Uncontrolled type 2 diabetes mellitus Surgical History History of colonoscopy (~2010) History of heart bypass surgery (~2010) History of neck surgery (~2017) History of plastic surgery History of prostatectomy (~2010) Hx of right hemicolectomy S/P colectomy Family History Other Cancer Heart disease Hypertension Social History household members: spouse Smoking Status: Never smoker second hand exposure: No details: RARELY substance use type: does not use seatbelt use: always do you feel safe at home: Yes HPI HPI HPI: Patient is a 72-year-old male here for colonoscopy. He has a history of colon cancer. He is not complaining of any abdominal pain or blood in his stool. ROS General General: No weight change, appetite, fatigue, colon cancer, breast cancer or weakness HEENT HEENT: No difficulty swallowing, eye injury, eye surgery, swollen glands or hoarseness Endo Endocrine: No thyroid disease, diabetes mellitus, thyroid cancer, Hair loss, heat intolerance or cold intolerance Skin Skin: No rash or changing moles Musc Musculoskeletal: No back problems, arthritis, rheumatoid arthritis, gout or joint pain Cardio Cardiovascular: Yes heart disease; No murmur, pacemaker, atrial fibrillation, high blood pressure, heart attack, heart stent, palpitations, shortness of breat with exertion or chest pain Psych Psychiatric: No depression, anxiety or hearing voices Resp Respiratory: No shortness of breath, No sleep apnea, No cough, No COPD, No asthma, No emphysema and No wheezing Gastro Gastrointestinal: No abdominal pain, No nausea or vomiting, No diarrhea, No constipation, No blood in stool, No acid reflux, No hemorrhoids, No ulcers, No gallbladder problem and No black,tarry stools Aidan Hematologic: No blood thinners, No blood disorders, No bleeding, No anemia and No blood clots Neuro Neurologic: No system reviewed and no additional complaints, except as documented, No as per HPI, No abnormal gait, No abnormal hearing, No abnormal movements, No abnormal speech, No behavioral changes, No burning sensations, No confusion, No convulsions, No disequilibrium, No dizziness, No localized w eakness, No frequent falls, No headache(s), No lack of coordination, No loss of vision, No memory loss, No numbness, No other visual disturbances, No radicular pain, No restless legs, No sensory deficit, No syncope, No tingling, No tremor(s), No weakness and No other Exam Const General: cooperative Orientation: alert and oriented x3 HENMT Head: normal to inspection Neck Neck: normal visual inspection and full ROM Chest Chest palpation & inspection: normal inspection of the chest Resp Effort & Inspection: normal respiratory effort Auscultation: clear to auscultation bilaterally Cardio Rate: regular rate Rhythm: regular rhythm GI Inspection: non-distended Palpation: soft and nontender Skin General: no rashes or lesions noted Neuro General: patient alert and patient oriented x3 Extrem General: full ROM Psych Appearance: grossly normal Mental Status: mental status grossly normal Assessment and Plan Assessment and Plan (1) Colon cancer: Status: Chronic Qualifiers: Colon location: ascending Qualified Code(s): C18.2 - Malignant neoplasm of ascending colon Plan: Patient has a history of colon cancer and requires surveillance colonoscopy. I explained endoscopy in detail to the patient. I explained the risks including but not limited to stroke or heart attack with anesthesia, perforation of the GI tract, bleeding, infection. I explained that any of these could necessitate further emergency surgery. The patient understands and all questions were answered sufficiently. The patient wishes to proceed with procedure. Bronson Jacobson MD Pager: [facility] [address] [place] [address], [address] [place] [address] Office: I have examined the patient and the H&P has been reviewed. There are no clinical changes since date of exam.
[2023-04-05 08:21] VITALS: BP 116/73; BP 128/70; PULSE 74; RESP 16; TEMP 36.2; O2SAT 97
--- NOTE | 2023-04-05 08:23 | OP.COLON_ITS ---
Patient Name: Sekou Daniel Procedure Date: 04/05/2023 7:58 AM Date of : 1950 Age: 72 Procedure: Colonoscopy Indications: High risk colon cancer surveillance: Personal history of colon cancer Providers: Bronson Jacobson MD Referring MD: Jose Luis Larose Medicines: Monitored Anesthesia Care Patient Profile: Last Colonoscopy: 1 year ago. Complications: No immediate complications. Procedure: Pre-Anesthesia Assessment: - Prior to the procedure, a History and Physical was performed, and patient medications and allergies were reviewed. The patient's tolerance of previous anesthesia was also reviewed. The risks and benefits of the procedure and the sedation options and risks were discussed with the patient. All questions were answered, and informed consent was obtained. Prior Anticoagulants: The patient has taken no anticoagulant or antiplatelet agents. After reviewing the risks and benefits, the patient was deemed in satisfactory condition to undergo the procedure. After I obtained informed consent, the scope was passed under direct vision. Throughout the procedure, the patient's blood pressure, pulse, and oxygen saturations were monitored continuously. The Colonoscope was introduced through the anus and advanced to the terminal ileum, with identification of the appendiceal orifice and IC valve. The colonoscopy was performed without difficulty. The patient tolerated the procedure well. The quality of the bowel preparation was good. Scope In: 8:07:21 AM Scope Withdrawal Time 0 hours 4 minutes 37 seconds Scope Out: 8:16:22 AM Total Procedure Duration Time 0 hours 9 minutes 1 second Findings: The entire examined colon appeared normal on direct and retroflexion views. Impression: - The entire examined colon is normal on direct and retroflexion views. - No specimens collected. Recommendation: - Discharge patient to home. - Resume previous diet. - Continue present medications. - Repeat colonoscopy in 3 years for surveillance. Procedure Code(s): --- Professional --- 58737, Colonoscopy, flexible; diagnostic, including collection of specimen(s) by brushing or washing, when performed (separate procedure) Diagnosis Code(s): --- Professional --- Z85.038, Personal history of other malignant neoplasm of large intestine CPT copyright 2021 [employer]. All rights reserved. The codes documented in this report are preliminary and upon permit technician review may be revised to meet current compliance requirements. Bronson Jacobson MD 04/05/2023 8:22:41 AM This report has been signed electronically. Number of Addenda: 0 Note Initiated On: 04/05/2023 7:58 AM
--- NOTE | 2023-04-05 08:23 | OP.CCLET_ITS ---
04/05/2023 Jose Luis Larose [address] [place] [address] [place] [address] Re : Colonoscopy procedure for Sekou Daniel Dear Dr. Larose This procedure was performed on Wednesday, April 05, 2023. My impressions and recommendations are as follows: Impressions : - The entire examined colon is normal on direct and retroflexion views. - No specimens collected. Recommendations : - Discharge patient to home. - Resume previous diet. - Continue present medications. - Repeat colonoscopy in 3 years for surveillance. My findings are described in the full procedure note, which is enclosed. If I can be of further assistance, please feel free to contact me at Doctor phone number(s): , Work: . Sincerely, Bronson Jacobson MD 04/05/2023 8:22:41 AM This report has been signed electronically.
[2023-04-05 08:25] VITALS: BP 121/76; BP 128/70; PULSE 74; RESP 16; O2SAT 98
[2023-04-05 08:30] VITALS: BP 118/84; BP 128/70; PULSE 67; RESP 16; O2SAT 98
[2023-04-05 08:35] VITALS: BP 127/74; BP 128/70; PULSE 66; RESP 16; TEMP 36.4; O2SAT 98
[2023-04-05 08:48] VITALS: BP 128/70
== END 2023-04-05 09:02 | disposition home or self-care (01) ==
LOC: EN 06:53 → AC 06:55
PROVIDERS: PCP Family Medicine; Referring Provider Family Medicine; Visit Provider Surgery
PROC: 0DJD8ZZ Inspection of Lower Intestinal Tract, Via Natural or Artificial Opening Endoscopic (ICD-10-PCS; CPT 45378; principal; 2023-04-05 07:55)
DX: Z12.11 Encounter for screening for malignant neoplasm of colon (principal); D64.9 Anemia, unspecified; I25.10 Atherosclerotic heart disease of native coronary artery without angina pectoris; Z95.1 Presence of aortocoronary bypass graft; K21.9 Gastro-esophageal reflux disease without esophagitis; E78.5 Hyperlipidemia, unspecified; Z85.46 Personal history of malignant neoplasm of prostate; I10 Essential (primary) hypertension; Z85.038 Personal history of other malignant neoplasm of large intestine
CPT/HCPCS: 45378; J7120; J2405

== ENCOUNTER → 2023-04-22 | Outpatient (CLI) | payer MEDICARE, BC, SELFPAY ==
[2023-04-22 15:07] LABS: Absolute Lymphocyte Count 2.26 X10^3/uL (0.83-4.51); Basophil# 0.07 X10^3/uL; Eosinophil# 0.12 X10^3/uL; Eosinophils% 1.7 % (0-5); Hematocrit 41.1 % (40-54); Hemoglobin 13.3 g/dL (13.0-16.5); Lymphocyte # 2.26 X10^3/ul (0.83-4.51); Lymphocyte % 32.4 % (19-41); Mean Corp Hgb Conc 32.4 g/dL (32-36); Mean Corpuscular Hgb 28.4 pg (27.0-32.0); Mean Corpuscular Volume 87.6 fL (80-94); Mean Platelet Vol. 11.2 fl (6.2-12.0); Monocyte# 0.47 X10^3/uL; Monocyte% 6.7 % (0-10); NRBC Flagged by Analyzer 0 % (0-5); Neutrophil # 4.04 X10^3/uL (2.7-7.7); Neutrophil % 57.9 % (47-70); Platelet Count 153 K/mm3 (150-450); RBC Distribution Width CV 12.7 % (11.6-14.6); RBC Distribution Width SD 40.4 fl (35.1-43.9); Red Blood Count 4.69 M/mm3 (4.6-6.2)
[2023-04-22 15:44] LABS: Vitamin B12 1319 pg/mL (211-911)
[2023-04-22 15:52] LABS: ALB/GLOB Ratio 1.2 RATIO (0.9-2.4); AST(SGOT) 18 U/L (15-37); Alanine Aminotransfer ALT/SGPT 29 U/L (16-61); Albumin, Serum 3.8 g/dL (3.2-5.0); Alkaline Phosphatase 68 U/L (45-117); Anion Gap 4 (5-15); BUN 32 mg/dL (7-18); BUN/Creat Ratio 23.2 RATIO (10-20); Calcium,Total 9.2 mg/dL (8.5-10.1); Chloride 108 mmol/L (98-107); Creatinine, Serum 1.38 mg/dL (0.70-1.30); EST Glomerular Filtration Rate 54 mL/min (>60); Est Glom Filt Rate - Afr Amer 65 mL/min (>60); Ferritin 31 ng/mL (26-388); Globulin 3.1 g/dL (2.2-4.2); Glucose 159 mg/dL (74-106); Iron 80 ug/dL (65-175); Iron Binding Capacity,Total 302 ug/dL (250-450); PERCENT IRON SATURATION 26.5 % (15.0-55.0); Potassium 5.4 mmol/L (3.5-5.1); Protein, Total 6.9 g/dL (6.4-8.2); Sodium Level 136 mmol/L (136-145)
[2023-04-24 12:09] LABS: Carcinoembryonic Antigen 2.9 ng/mL (0.0-4.7)
== END | disposition home or self-care (01) ==
LOC: LAB 14:52
PROVIDERS: PCP Family Medicine; Referring Provider Internal Medicine Hematology & Oncology; Visit Provider Internal Medicine Hematology & Oncology
DX: D64.9 Anemia, unspecified (principal); C18.9 Malignant neoplasm of colon, unspecified; Z85.46 Personal history of malignant neoplasm of prostate
CPT/HCPCS: 36415; 80053; 82378; 82607; 82728; 83540; 83550; 84153; 85025

== ENCOUNTER → 2023-09-10 | Outpatient (CLI) | payer MEDICARE, BC, SELFPAY ==
--- OUTSIDE RECORDS SUMMARY | 2023-09-10 12:04 | XMS RPT_ITS | CCD ---
Author Name Unknown Address [address] [place] [id number] Organization [facility] Care Team Providers Care Channel Layer Name Role Phone PRINCE RICH Unavailable Unavailable PRINCE RICH Unavailable Unavailable VACCSAUL GARCÍA Admitting Unavailable VACCARIELLO, SAUL Primary Care Unavailable VACCRICKY, SAUL Consulting Unavailable VACCARIELLO, SAUL Attending Unavailable PROVIDER, UNKNOWN Consulting Unavailable PROVIDER, UNKNOWN Consulting Unavailable PROVIDER, UNKNOWN Consulting Unavailable Allergies Allergy Classification Reported Allergen(s) Allergy Type Date of Onset Reaction(s) Facility (1 source) Hmg-Coa Reductase Inhibitors (Statins) Drug allergy (disorder) [facility] Repository Results Test Name Value Interpretation Reference Range Facil ity Encounters Encounter Date Encounter Type Care Provider Facility Start: 11-09-2020 End: 11-10-2020 Patient encounter procedure SAUL KATHYRICKY [facility] Start: 11-01-2017 Ambulatory PRINCE RICH Facility:[facility] Payers Date Payer Category Payer Unknown [id number] Medicare [id number] Medicare [id number] Summary Purpose Family History No Family History Records FoundNo Family History Records FoundNo Family History Records Found Advance Directives No Advanced Directives Records FoundNo Advanced Directives Records FoundNo Advanced Directives Records Found Additional Source Comments (unrecognized sect ion and content) No Status Records FoundNo Status Records FoundNo Status Records Found INFORMATION SOURCE (unrecogn ized section and content) DATE CREATED AUTHOR AUTHOR'S ORGANIZ ATION 11/10/2020 [facility] DATE CREATED AUTHOR AUTHOR'S ORGANIZ ATION 07/15/2023 [facility] FOR RECORDS PERTAINING TO PATIENTS WHO ARE OR HAVE BEEN ENROLLED IN A CHEMICAL DEPENDENCY/SUBSTANCEABUSE PROGRAM, SOME INFORMATION MAY BE OMITTED. This clinical summary was aggregated from multiple sources. Caution should be exercised in using it in the provision of clinical care. This summary normalizes information from multiple sources, and as a consequence, information in this document may materially change the coding, format and clinical context of patient data. In addition, data may be omitted in some cases. CLINICAL DECISIONS SHOULD BE BASED ON THE PRIMARY CLINICAL RECORDS. [facility] [employer] [facility]. provides no warranty or guarantee of the accuracy or completeness of information in this document.
[2023-09-10 12:58] LABS: PSA,Total- Diagnostic 0.23 ng/mL (0.0-4.0)
[2023-09-11 04:07] LABS: Carcinoembryonic Antigen 3.1 ng/mL (0.0-4.7)
== END | disposition home or self-care (01) ==
LOC: LAB 11:11
PROVIDERS: PCP Family Medicine; Referring Provider Internal Medicine Hematology & Oncology; Visit Provider Internal Medicine Hematology & Oncology
DX: C18.9 Malignant neoplasm of colon, unspecified (principal); Z85.46 Personal history of malignant neoplasm of prostate
CPT/HCPCS: 36415; 82378; 84153

== ENCOUNTER → 2024-01-08 | Outpatient (CLI) | payer MEDICARE, BC, SELFPAY ==
[2024-01-08 10:10] LABS: Hemoglobin A1c 7.6 % (3.8-5.6)
[2024-01-08 10:18] LABS: Anion Gap 2 (5-15); BUN 24 mg/dL (7-18); BUN/Creat Ratio 22.6 RATIO (10-20); Calcium,Total 9.6 mg/dL (8.5-10.1); Chloride 109 mmol/L (98-107); Cholesterol 189 mg/dL (200); Creatinine, Serum 1.06 mg/dL (0.70-1.30); EST Glomerular Filtration Rate 73 mL/min (>60); Est Glom Filt Rate - Afr Amer 88 mL/min (>60); Glucose 164 mg/dL (74-106); High Density Lipoprotein 42 mg/dL; PSA,Total- Diagnostic 0.28 ng/mL (0.0-4.0); Potassium 4.7 mmol/L (3.5-5.1); Sodium Level 138 mmol/L (136-145); Triglycerides 182 mg/dL; Very Low Density Lipoprotein 36 mg/dL (5-40)
[2024-01-09 08:11] LABS: Carcinoembryonic Antigen 2.8 ng/mL (0.0-4.7)
== END | disposition home or self-care (01) ==
PROVIDERS: Internal Medicine Hematology & Oncology; PCP Family Medicine; Referring Provider Family Medicine; Visit Provider Family Medicine
DX: I10 Essential (primary) hypertension (principal); C18.2 Malignant neoplasm of ascending colon; E11.9 Type 2 diabetes mellitus without complications; E78.5 Hyperlipidemia, unspecified; Z85.46 Personal history of malignant neoplasm of prostate
CPT/HCPCS: 36415; 80048; 80061; 82378; 83036; 84153

== ENCOUNTER → 2024-03-10 | Outpatient (CLI) | payer MEDICARE, BC, SELFPAY ==
--- NOTE | 2024-03-10 13:48 | NEURO ---
NCS and/or EMG Patient Report Ordering Doctor: Jovany Vasquez DATE OF SERVICE: 03/10/24 Clinical Summary: 73 year old male patient with symptoms of numbness, tingling, and pain in both hands. Nerve Conduction Studies Summary: The right median-D2 SNAP distal latency was prolonged. The left median-D2 SNAP was absent. The ulnar-D5 SNAPs were absent bilaterally. The right median-APB CMAP distal latency was prolonged. The left median-APB CMAP was absent. The right median motor conduction velocity was reduced in the forearm segment. The ulnar motor conduction velocity was reduced across the elbow segment bilaterally. The right median F-wave onset latency was prolonged. The ulnar F-wave onset latency was prolonged bilaterally. Needle Examination Summary: Needle examination demonstrated increased insertional activity and spontaneous activity (positive sharp waves) in the right first dorsal interossous muscle. There was a higher proportion of motor unit action potentials with reduced recruitment, increased amplitude, increased duration, and polyphasia in the bilateral triceps, left biceps, right flexor carpi radialis, left extensor carpi radialis longus, left flexor carpi ulnaris, bilateral first dorsal interosseous, and right abductor pollicis brevis muscles. There were no motor units seen in the left abductor pollicis brevis muscle. 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
== END | disposition home or self-care (01) ==
LOC: PSN 10:58
PROVIDERS: PCP Family Medicine; Referring Provider Orthopaedic Surgery; Visit Provider Orthopaedic Surgery
DX: M54.12 Radiculopathy, cervical region (principal); R20.2 Paresthesia of skin
CPT/HCPCS: 95886; 95912

== ENCOUNTER 2024-04-03 09:27 | Day surgery (SDC) | payer MEDICARE, BC, SELFPAY ==
--- NOTE | 2024-03-10 11:09 | EKG12_ITS ---
Test Reason : PRE OP Blood Pressure : / mmHG Vent. Rate : 060 BPM Atrial Rate : 060 BPM P-R Int : 156 ms QRS Dur : 146 ms QT Int : 446 ms P-R-T Axes : 099 055 -67 degrees QTc Int : 446 ms Normal sinus rhythm Left bundle branch block Abnormal ECG Confirmed by ABHI SANTANA, ASAEL ([id number]), multimedia editor LAMONT BISHOP ([id number]) on 03/11/2024 9:34:40 AM Referred By: Bronson Jacobson Confirmed By:VIOLETTA MOE MD
[2024-03-12 15:35] LABS: Hematocrit 39.1 % (40-54); Hemoglobin 12.9 g/dL (13.0-16.5); Mean Corpuscular Hgb 28.1 pg (27.0-32.0); Mean Corpuscular Volume 85.2 fL (80-94); Mean Platelet Vol. 11.5 fl (6.2-12.0); Platelet Count 132 K/mm3 (150-450); RBC Distribution Width CV 13.4 % (11.6-14.6); RBC Distribution Width SD 41.1 fl (35.1-43.9); Red Blood Count 4.59 M/mm3 (4.6-6.2)
[2024-03-12 15:49] LABS: Prothrombin Time (Protime)PT. 13.2 SECONDS (11.7-14.9)
[2024-03-12 15:50] LABS: Partial Thromboplast Time 25.6 Seconds (24.1-36.2)
[2024-03-12 15:56] LABS: Hemoglobin A1c 7.3 % (3.8-5.6)
[2024-03-17] MEDS: Lactated Ringers 1,000 ML 15 ML IV (12:08)
[2024-03-17 12:10] VITALS: BP 134/80; PULSE 62; RESP 18; TEMP 35.9; O2SAT 99; BMI 31.1
--- NOTE | 2024-03-17 12:29 | HP.PCM_ITS ---
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 Is patient in pain?: Yes (generalized) Allergies Cjomzcp-CCA-NhB Reductase Inhibitor (Pjvveuy-Nmp-Ylh Reductase Inhibitor) Adverse Reaction (Severe, Verified 02/05/24 13:07) Other Medications ?Medication ?Instructions ?Recorded ?Confirmed ?Type aspirin 81 mg tablet,delayed 81 mg PO DAILY@0800 HEART HEALTH 10/27/20 02/05/24 History release esomeprazole magnesium 40 mg 40 mg PO DAILY GERD 10/27/20 02/05/24 History capsule,delayed release ezetimibe 10 mg tablet 10 mg PO DAILY CHOLESTEROL 10/27/20 02/05/24 History fluticasone propionate 50 2 spray NASAL DAILY ALLERGIES 10/27/20 02/05/24 History mcg/actuation nasal spray,suspension multivitamin 1 tab PO DAILY SUPPLEMENT 10/27/20 02/05/24 History acetaminophen 500 mg capsule 500 mg PO Q6H PRN pain #1 cap 12/28/21 02/05/24 Rx ferrous sulfate 325 mg (65 mg 325 mg PO BID 01/26/22 02/05/24 History iron) tablet (FeroSul) buspirone 5 mg tablet 5 mg PO BID 02/05/24 02/05/24 History lisinopril 30 mg tablet 30 mg PO QDAY 02/05/24 02/05/24 History metformin 500 mg tablet,extended 500 mg PO QDAY 02/05/24 02/05/24 History release 24 hr tadalafil 10 mg tablet 10 mg PO QDAY 02/05/24 02/05/24 History PFSH Medical History Wears glasses Cancer Arthritis Pulmonary embolism Mendoza esophagus History of hiatal hernia Non-smoker Cardiology follow-up encounter Pneumonia due to 2019-nCoV Lung nodules Iron deficiency anemia History of prostate cancer Head trauma Alcohol use History of stress test 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 History of neck injury Anemia Chronic neck pain BPH (benign prostatic hyperplasia) Chronic sinusitis History of prostate cancer Uncontrolled type 2 diabetes mellitus CAD (coronary artery disease) History of MRSA infection GERD (gastroesophageal reflux disease) Hyperlipidemia Hypertension Surgical History History of cataract surgery Hx of right hemicolectomy S/P colectomy History of plastic surgery History of neck surgery (~2017) History of heart bypass surgery (~2010) History of prostatectomy (~2010) History of colonoscopy (~2010) Family History Other Cancer Heart disease Hypertension Social History household members: spouse Smoking Status: Never smoker second hand exposure: No details: RARELY substance use type: does not use seatbelt use: always do you feel safe at home: Yes HPI HPI HPI: Patient is a 73-year-old male here for ventral hernia. The patient had right hemicolectomy in 2020 for colon cancer. At that time he had a midline hernia from a prior prostatectomy. During his hemicolectomy I repaired the ventral hernia with PDS suture and the patient has a recurrent hernia. It bulges especially if he eats too much or is lifting something heavy. ROS General General: Yes colon cancer; No weight change, appetite, fatigue, breast cancer or weakness HEENT HEENT: Yes eye injury and eye surgery; No difficulty swallowing, swollen glands or hoarseness Endo Endocrine: Yes diabetes mellitus; No thyroid disease, thyroid cancer, Hair loss, heat intolerance or cold intolerance Skin Skin: No rash or changing moles Breast Breast: No left breast lump, right breast lump, nipple discharge, breast pain, abnormal mammogram, abnormal US or breast enlargement Musc Musculoskeletal: Yes arthritis and rheumatoid arthritis; No back problems, gout or joint pain Cardio Cardiovascular: Yes heart disease and high blood pressure; No murmur, pacemaker, atrial fibrillation, heart attack, heart stent, palpitations, shortness of breat with exertion or chest pain Psych Psychiatric: No depression, anxiety or hearing voices Resp Respiratory: No shortness of breath, No sleep apnea, No cough, No COPD, No asthma, No emphysema and No wheezing Gastro Gastrointestinal: Yes abdominal pain, No nausea or vomiting, No diarrhea, No constipation, No blood in stool, Yes acid reflux, Yes hemorrhoids, No ulcers, No gallbladder problem and No black,tarry stools Aidan Hematologic: No blood thinners, No blood disorders, No bleeding, No anemia and No blood clots Neuro Neurologic: No system reviewed and no additional complaints, except as documented, No as per HPI, No abnormal gait, No abnormal hearing, No abnormal movements, No abnormal speech, No behavioral changes, No burning sensations, No confusion, No convulsions, No disequilibrium, No dizziness, No localized weakness, No frequent falls, No headache(s), No lack of coordination, No loss of vision, No memory loss, Yes numbness, No other visual disturbances, No radicular pain, No restless legs, No sensory deficit, No syncope, Yes tingling, No tremor(s), No weakness and No other Exam Const General: cooperative Orientation: alert and oriented x3 HENMT Head: normal to inspection Neck Neck: normal visual inspection and full ROM Chest Chest palpation & inspection: normal inspection of the chest Resp Effort & Inspection: normal respiratory effort Auscultation: clear to auscultation bilaterally Cardio Rate: regular rate Rhythm: regular rhythm GI Inspection: non-distended Palpation: soft, hernia ventral and nontender Skin General: no rashes or lesions noted Neuro General: patient alert and patient oriented x3 Extrem General: full ROM Psych Appearance: grossly normal Mental Status: mental status grossly normal Assessment and Plan Assessment and Plan (1) Ventral incisional hernia: Status: Acute Plan: The patient has an incisional ventral hernia from his right hemicolectomy. He had a prior hernia before the surgery as well. I discussed laparoscopic converted to open hybrid ventral hernia repair with mesh. I discussed the risks of the procedure with him and his such as bleeding, infection, injury to underlying organs, mesh infection. Patient understands the risks and is willing to proceed. He will stop his aspirin 5 days prior to the procedure. Bronson Jacobson MD Pager: [facility] [address] [place] [address], [address] [place] [address] Office: I have examined the patient and the H&P has been reviewed. There are no clinical changes since date of exam.
--- NOTE | 2024-03-17 12:35 | PRE.ANES_ITS ---
ASA Classification* ASA Classification ASA Classification: 3 Assessment & Plan Anesthesia* Anesthesia Assessment Anesthesia Assessment: Discussed sedation and/or anesthesia options, risks, benefits, and alternatives with patient/parents/legal guardian/POA. Questions invited. The patient/parents/legal guardian/POA seems to understand and agrees to proceed with anesthesia plan. Reviewed the physical assessment, medical history, allergy history and patient home medications list prior to surgery/procedure/anesthetic and documented any changes. Performed airway and anesthesia risk assessments. Anesthesia Type Anesthesia Type: General (Will need GlideScope for intubation.) History Source History Obtained from:: Patient and Chart Anesthesia Focused Assessment* Temperature: 96.7 F Pulse Rate: 62 Blood Pressure: 134/80 Respiratory Rate: 18 Pulse Ox: 99 Oxygen Delivery Method: Room Air Airway Assessment Mouth opens: >3 cm Mallampati Score: III Teeth Condition: Intact Neck Range of motion (ROM): Limited ROM (Severe decrease in extension. Will need GlideScope for intubation.) Pertinent Findings EKG Pertinent Findings:: March 10, 2024. Normal sinus rhythm. Left bundle branch block. No change from at least October 27, 2020 Focused Labs Anesthesia Preop lab: CBC WBC 7.0 K/mm3 (4.4-11.0) 03/12/24 15:14 RBC 4.59 M/mm3 (4.6-6.2) L 03/12/24 15:14 Hgb 12.9 g/dL (13.0-16.5) L 03/12/24 15:14 Hct 39.1 % (40-54) L 03/12/24 15:14 Plt Count 132 K/mm3 (150-450) L 03/12/24 15:14 CHEMISTRY Potassium 4.7 mmol/L (3.5-5.1) 01/08/24 09:08 Sodium 138 mmol/L (136-145) 01/08/24 09:08 Magnesium 2.4 mg/dL (1.6-2.6) 12/27/20 11:59 BUN 24 mg/dL (7-18) H 01/08/24 09:08 Creatinine 1.06 mg/dL (0.70-1.30) 01/08/24 09:08 Glucose 164 mg/dL (74-106) H 01/08/24 09:08 POC Glucose 125 mg/dL (70-110) H 01/06/21 06:29 COAG PT 13.2 SECONDS (11.7-14.9) 03/12/24 15:14 Pre-Assessment Diagnosis/Proposed Procedure Planned Operative Procedure(s): HYBRID LAP/OPEN VENTRAL HERNIA REPAIR WITH MESH Anesthesia History 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 When Was Last Pacemaker Check QUESTION #4 FULL TEXT: You/Your Family Experience fever (hyperthermia) with Anesthesia Last Oral Intake Last Oral intake: Last Oral Intake NPO since 00:00 03/17/24 12:10 Meds taken in AM with sips of Yes 03/17/24 12:10 water? Meds patient instructed to lisinopril 03/17/24 12:10 take am of surgery esomeprazole tadalafil PONV PONV - direct care worker: PONV - direct care worker Female No 03/05/24 09:53 HX of Motion Sickness No 03/05/24 09:53 HX of N/V After Surgery No 03/05/24 09:53 Non-Smoker Yes 03/05/24 09:53 Duration of Surgery greater Yes 03/05/24 09:53 than 60 minutes Number of Risk Factors 2 03/05/24 09:53 PONV Score Moderate Risk 03/05/24 09:53 Height & Weight Height & Weight: Anesthesia: Height & Weight Height 6 ft 03/17/24 12:10 Weight: 103.963 kg 03/17/24 12:10 Body Mass Index (BMI) 31.1 03/17/24 12:10 Respiratory Assessment Respiratory Assessment - direct care worker: Respiratory Tract Infection Hx - direct care worker Hx Respiratory Tract Infection No 03/05/24 09:53 STOP Sleep Apnea STOP Sleep Apnea - direct care worker: STOP Sleep Apnea - direct care worker Hx Hypertension Yes: CONTROLLED WITH MED 03/05/24 09:53 Hx Sleep Apnea No 03/05/24 09:53 CPAP No 04/05/23 08:21 BIPAP Do you snore loudly (louder No 03/05/24 09:53 than talking or can be heard Do you often feel tired/ No 03/05/24 09:53 fatigued/ sleepy during daytime? Has anyone observed you stop No 03/05/24 09:53 breathing during sleep? STOP Results Negative 03/05/24 09:53 QUESTION #5 FULL TEXT : Do you snore loudly (louder than talking or can be heard through closed doors)? Tobacco Use History Tobacco Use History - direct care worker: Tobacco Use History - direct care worker Tobacco Use Non-smoker 01/11/21 14:10 Smoking Status Never smoker 03/05/24 09:53 Hx Tobacco Use No 03/05/24 09:53 Years Smoking Packs Smoked per Day Smoking Cessation Date was within the last 15 years Hx Smoking Cessation Date Hx Smoking Cessation Counseling Hematologic Medial History Hematologic Hx - direct care worker: Hematologic Medical Hx - desktop analyst Hx of Blood Transfusion Yes 03/05/24 09:53 Hx of Transfusion in last 3 No 03/05/24 09:53 Months Date of Last Transfusion (if within last 3 months) Ever experience any problems No 03/05/24 09:53 with transfusion(s)? Specify any problems Hx of Preganancy in last 3 N/A 03/05/24 09:53 Months Nurse Filling Out Transfusion DSCHRIBER 03/05/24 09:53 & Questions: Date: 03/05/24 03/05/24 09:53 Time: 09:55 03/05/24 09:53 Patient unable to answer at this time (ie. confused, unrespo /Reproduction History /Reproductive History - direct care worker: /Reproductive Hx- direct care worker Hx Now No 03/05/24 09:53 Gestational Age (in weeks): EDC: Hx Hx Para Hx Section SAB No 03/05/24 09:53 Active Medications Active Medications: Current Medications Generic Name Dose Route Start Last Admin Trade Name Freq PRN Reason Stop Dose Admin Lactated Ringer's 1,000 mls @ 15 mls/hr 03/17/24 11:30 03/17/24 12:08 IV 15 mls/hr .Q48H ARAM Administration PFSH Medical History Diabetes Anxiety History of steroid therapy History of ulceration History of GI bleed Gastric reflux History of pain when walking Wears glasses Cancer Arthritis Mendoza esophagus History of hiatal hernia Non-smoker Cardiology follow-up encounter Pneumonia due to 2019-nCoV Lung nodules Iron deficiency anemia History of prostate cancer Head trauma Alcohol use History of stress test 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 History of neck injury Anemia BPH (benign prostatic hyperplasia) Chronic sinusitis Uncontrolled type 2 diabetes mellitus CAD (coronary artery disease) History of MRSA infection GERD (gastroesophageal reflux disease) Hyperlipidemia Hypertension Home Medications ?Medication ?Instructions ?Recorded ?Last Taken ?Type aspirin 81 mg tablet,delayed 81 mg PO DAILY@0800 HEART HEALTH 10/27/20 03/11/24 History release esomeprazole magnesium 40 mg 40 mg PO DAILY GERD 10/27/20 03/17/24 History capsule,delayed release ezetimibe 10 mg tablet 10 mg PO DAILY CHOLESTEROL 10/27/20 10/27/20 History fluticasone propionate 50 2 spray NASAL .DAILY PRN PRN 10/27/20 10/26/20 History mcg/actuation nasal ALLERGIES spray,suspension multivitamin 1 tab PO DAILY SUPPLEMENT 10/27/20 10/27/20 History acetaminophen 500 mg capsule 500 mg PO Q6H PRN pain #1 cap 12/28/21 04/05/23 Rx ferrous sulfate 325 mg (65 mg 325 mg PO BID 01/26/22 Unknown History iron) tablet (FeroSul) lisinopril 30 mg tablet 30 mg PO QDAY 02/05/24 03/17/24 History metformin 500 mg tablet,extended 250 mg PO QDAY 02/05/24 Unknown History release 24 hr tadalafil 10 mg tablet 10 mg PO QDAY 02/05/24 03/17/24 History indomethacin 50 mg capsule 50 mg PO TID PRN PRN ALLERGIES 03/05/24 Unknown History Allergy/AdvReac Type Severity Reaction Status Date / Time Nxxawob-HDI-TkD Reductase AdvReac Severe Other Verified 03/05/24 09:48 Inhibitor (Fapvxix-Vuv-Hxa Reductase Inhibitor) Family History Other Cancer Heart disease Hypertension Surgical History Hx of right cataract extraction Hx of left cataract extraction Hx of right hemicolectomy S/P colectomy History of plastic surgery History of neck surgery (~2017) History of heart bypass surgery (~2010) History of prostatectomy (~2010) History of colonoscopy (~2010) Social History household members: spouse Smoking Status: Never smoker second hand exposure: No details: RARELY substance use type: does not use seatbelt use: always do you feel safe at home: Yes Review of Systems (Anesthesia) ROS Narrative System reviewed and no additional complaints, except as documented.
[2024-03-17 12:43] LABS: Bedside Glucose 127 mg/dL (74-106)
[2024-03-17 12:50] VITALS: BP 134/80; PULSE 62; RESP 18; TEMP 35.9; O2SAT 99
[2024-04-03] VITALS (12 sets, daily range): BP systolic 127–148; BP diastolic 67–80; PULSE 56–70; RESP 16–20; TEMP 35.9–36.7; O2SAT 92–99; BMI 31.1
--- NOTE | 2024-04-03 09:50 | PRE.ANES_ITS ---
ASA Classification* ASA Classification ASA Classification: 2 Assessment & Plan Anesthesia* Anesthesia Assessment Anesthesia Assessment: Discussed sedation and/or anesthesia options, risks, benefits, and alternatives with patient/parents/legal guardian/POA. Questions invited. The patient/parents/legal guardian/POA seems to understand and agrees to proceed with anesthesia plan. Reviewed the physical assessment, medical history, allergy history and patient home medications list prior to surgery/procedure/anesthetic and documented any changes. Performed airway and anesthesia risk assessments. Anesthesia Type Anesthesia Type: General (see written pre anesthesia record for full assessment) Anesthesia Focused Assessment* Temperature: 96.7 F Pulse Rate: 62 Blood Pressure: 134/80 Respiratory Rate: 18 Pulse Ox: 99 Airway Assessment Mouth opens: >3 cm Mallampati Score: III Focused Labs Anesthesia Preop lab: CBC WBC 7.0 K/mm3 (4.4-11.0) 03/12/24 15:14 RBC 4.59 M/mm3 (4.6-6.2) L 03/12/24 15:14 Hgb 12.9 g/dL (13.0-16.5) L 03/12/24 15:14 Hct 39.1 % (40-54) L 03/12/24 15:14 Plt Count 132 K/mm3 (150-450) L 03/12/24 15:14 CHEMISTRY Potassium 4.7 mmol/L (3.5-5.1) 01/08/24 09:08 Sodium 138 mmol/L (136-145) 01/08/24 09:08 Magnesium 2.4 mg/dL (1.6-2.6) 12/27/20 11:59 BUN 24 mg/dL (7-18) H 01/08/24 09:08 Creatinine 1.06 mg/dL (0.70-1.30) 01/08/24 09:08 Glucose 164 mg/dL (74-106) H 01/08/24 09:08 POC Glucose 127 mg/dL (74-106) H 03/17/24 12:17 COAG PT 13.2 SECONDS (11.7-14.9) 03/12/24 15:14 Pre-Assessment Diagnosis/Proposed Procedure Planned Operative Procedure(s): HYBRID LAP/OPEN VENTRAL HERNIA REPAIR WITH MESH Anesthesia History 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 When Was Last Pacemaker Check QUESTION #4 FULL TEXT: You/Your Family Experience fever (hyperthermia) with Anesthesia Last Oral Intake Last Oral intake: Last Oral Intake NPO since 00:00 03/17/24 12:10 Meds taken in AM with sips of Yes 03/17/24 12:10 water? 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 - glass laminating operator Female No 03/05/24 09:53 HX of Motion Sickness No 03/05/24 09:53 HX of N/V After Surgery No 03/05/24 09:53 Non-Smoker Yes 03/05/24 09:53 Duration of Surgery greater Yes 03/05/24 09:53 than 60 minutes Number of Risk Factors 2 03/05/24 09:53 PONV Score Moderate Risk 03/05/24 09:53 Height & Weight Height & Weight: Anesthesia: Height & Weight Height 6 ft 03/17/24 12:10 Weight: 103.963 kg 03/17/24 12:10 Body Mass Index (BMI) 31.1 03/17/24 12:10 Respiratory Assessment Respiratory Assessment - glass laminating operator: Respiratory Tract Infection Hx - glass laminating operator Hx Respiratory Tract Infection No 03/05/24 09:53 STOP Sleep Apnea STOP Sleep Apnea - glass laminating operator: STOP Sleep Apnea - glass laminating operator Hx Hypertension Yes: CONTROLLED WITH MED 03/05/24 09:53 Hx Sleep Apnea No 03/05/24 09:53 CPAP No 04/05/23 08:21 BIPAP Do you snore loudly (louder No 03/05/24 09:53 than talking or can be heard Do you often feel tired/ No 03/05/24 09:53 fatigued/ sleepy during daytime? Has anyone observed you stop No 03/05/24 09:53 breathing during sleep? STOP Results Negative 03/05/24 09:53 QUESTION #5 FULL TEXT : Do you snore loudly (louder than talking or can be heard through closed doors)? Tobacco Use History Tobacco Use History - glass laminating operator: Tobacco Use History - glass laminating operator Tobacco Use Non-smoker 01/11/21 14:10 Smoking Status Never smoker 03/05/24 09:53 Hx Tobacco Use No 03/05/24 09:53 Years Smoking Packs Smoked per Day Smoking Cessation Date was within the last 15 years Hx Smoking Cessation Date Hx Smoking Cessation Counseling Hematologic Medial History Hematologic Hx - glass laminating operator: Hematologic Medical Hx - clinical documentation spec Hx of Blood Transfusion Yes 03/05/24 09:53 Hx of Transfusion in last 3 No 03/05/24 09:53 Months Date of Last Transfusion (if within last 3 months) Ever experience any problems No 03/05/24 09:53 with transfusion(s)? Specify any problems Hx of Preganancy in last 3 N/A 03/05/24 09:53 Months Nurse Filling Out Transfusion DSCHRIBER 03/05/24 09:53 & Questions: Date: 03/05/24 03/05/24 09:53 Time: 09:55 03/05/24 09:53 Patient unable to answer at this time (ie. confused, unrespo /Reproduction History /Reproductive History - glass laminating operator: /Reproductive Hx- glass laminating operator Hx Now No 03/05/24 09:53 Gestational Age (in weeks): EDC: Hx Hx Para Hx Section SAB No 03/05/24 09:53 Active Medications Active Medications: Current Medications Generic Name Dose Route Start Last Admin Trade Name Freq PRN Reason Stop Dose Admin Cefazolin Sodium 2 gm/ Sodium 110 mls @ 150 mls/hr 04/03/24 12:00 Chloride IV 04/03/24 12:43 PREOP ONE Lactated Ringer's 1,000 mls @ 15 mls/hr 04/03/24 09:45 IV .Q48H ARAM PFSH Medical History Diabetes Anxiety History of steroid therapy History of ulceration History of GI bleed Gastric reflux History of pain when walking Wears glasses Cancer Arthritis Mendoza esophagus History of hiatal hernia Non-smoker Cardiology follow-up encounter Pneumonia due to 2019-nCoV Lung nodules Iron deficiency anemia History of prostate cancer Head trauma Alcohol use History of stress test 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 History of neck injury Anemia BPH (benign prostatic hyperplasia) Chronic sinusitis Uncontrolled type 2 diabetes mellitus CAD (coronary artery disease) History of MRSA infection GERD (gastroesophageal reflux disease) Hyperlipidemia Hypertension Home Medications ?Medication ?Instructions ?Recorded ?Last Taken ?Type aspirin 81 mg tablet,delayed 81 mg PO DAILY@0800 HEART HEALTH 10/27/20 03/11/24 History release esomeprazole magnesium 40 mg 40 mg PO DAILY GERD 10/27/20 03/17/24 History capsule,delayed release ezetimibe 10 mg tablet 10 mg PO DAILY CHOLESTEROL 10/27/20 10/27/20 History fluticasone propionate 50 2 spray NASAL .DAILY PRN PRN 10/27/20 10/26/20 History mcg/actuation nasal ALLERGIES spray,suspension multivitamin 1 tab PO DAILY SUPPLEMENT 10/27/20 10/27/20 History acetaminophen 500 mg capsule 500 mg PO Q6H PRN pain #1 cap 12/28/21 04/05/23 Rx ferrous sulfate 325 mg (65 mg 325 mg PO BID 01/26/22 Unknown History iron) tablet (FeroSul) lisinopril 30 mg tablet 30 mg PO QDAY 02/05/24 03/17/24 History metformin 500 mg tablet,extended 250 mg PO QDAY 02/05/24 Unknown History release 24 hr tadalafil 10 mg tablet 10 mg PO QDAY 02/05/24 03/17/24 History indomethacin 50 mg capsule 50 mg PO TID PRN PRN ALLERGIES 03/05/24 Unknown History Allergy/AdvReac Type Severity Reaction Status Date / Time Yvcgxdi-QOA-QyT Reductase AdvReac Severe Other Verified 04/03/24 09:40 Inhibitor (Leknxwx-Bsi-Apn Reductase Inhibitor) Family History Other Cancer Heart disease Hypertension Surgical History Hx of right cataract extraction Hx of left cataract extraction Hx of right hemicolectomy S/P colectomy History of plastic surgery History of neck surgery (~2017) History of heart bypass surgery (~2010) History of prostatectomy (~2010) History of colonoscopy (~2010) Social History household members: spouse Smoking Status: Never smoker second hand exposure: No details: RARELY substance use type: does not use seatbelt use: always do you feel safe at home: Yes Review of Systems (Anesthesia) ROS Narrative System reviewed and no additional complaints, except as documented.
[2024-04-03] MEDS: Lactated Ringers 1,000 ML 15 ML IV (10:04)
--- NOTE | 2024-04-03 10:17 | PCM.HP.BLA ---
History and Physical Date of Admission: 04/03/24 Intake Vital Signs 01/15/2413:29 02/04/2413:06 Height 6 ft 6 ft Weight: 234 lb 2 oz 235 lb BMI 31.7 31.8 BP 124/64 H 145/77 H Blood Pressure Location Lt brachial Rt brachial Position Sitting Sitting Respiration 18 18 Pulse 71 Pulse Source Monitor Temp 99.0 F Pulse Oximetry (%) 96 Oxygen Delivery Method room air Intake Visit Reasons: VENTAL HERNIA Chief Complaint: ventral hernia Lead Application Architect Required: No Is patient in pain?: Yes (generalized) Allergies Bmjbeij-QOP-LfN Reductase Inhibitor (Xsmlvha-Hed-Tos Reductase Inhibitor) Adverse Reaction (Severe, Verified 02/05/24 13:07) Other Medications ?Medication ?Instructions ?Recorded ?Confirmed ?Type aspirin 81 mg tablet,delayed 81 mg PO DAILY@0800 HEART HEALTH 10/27/20 02/05/24 History release esomeprazole magnesium 40 mg 40 mg PO DAILY GERD 10/27/20 02/05/24 History capsule,delayed release ezetimibe 10 mg tablet 10 mg PO DAILY CHOLESTEROL 10/27/20 02/05/24 History fluticasone propionate 50 2 spray NASAL DAILY ALLERGIES 10/27/20 02/05/24 History mcg/actuation nasal spray,suspension multivitamin 1 tab PO DAILY SUPPLEMENT 10/27/20 02/05/24 History acetaminophen 500 mg capsule 500 mg PO Q6H PRN pain #1 cap 12/28/21 02/05/24 Rx ferrous sulfate 325 mg (65 mg 325 mg PO BID 01/26/22 02/05/24 History iron) tablet (FeroSul) buspirone 5 mg tablet 5 mg PO BID 02/05/24 02/05/24 History lisinopril 30 mg tablet 30 mg PO QDAY 02/05/24 02/05/24 History metformin 500 mg tablet,extended 500 mg PO QDAY 02/05/24 02/05/24 History release 24 hr tadalafil 10 mg tablet 10 mg PO QDAY 02/05/24 02/05/24 History PFSH Medical History Wears glasses Cancer Arthritis Pulmonary embolism Mendoza esophagus History of hiatal hernia Non-smoker Cardiology follow-up encounter Pneumonia due to 2019-nCoV Lung nodules Iron deficiency anemia History of prostate cancer Head trauma Alcohol use History of stress test 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 History of neck injury Anemia Chronic neck pain BPH (benign prostatic hyperplasia) Chronic sinusitis History of prostate cancer Uncontrolled type 2 diabetes mellitus CAD (coronary artery disease) History of MRSA infection GERD (gastroesophageal reflux disease) Hyperlipidemia Hypertension Surgical History History of cataract surgery Hx of right hemicolectomy S/P colectomy History of plastic surgery History of neck surgery (~2017) History of heart bypass surgery (~2010) History of prostatectomy (~2010) History of colonoscopy (~2010) Family History Other Cancer Heart disease Hypertension Social History household members: spouse Smoking Status: Never smoker second hand exposure: No details: RARELY substance use type: does not use seatbelt use: always do you feel safe at home: Yes HPI HPI HPI: Patient is a 73-year-old male here for ventral hernia. The patient had right hemicolectomy in 2020 for colon cancer. At that time he had a midline hernia from a prior prostatectomy. During his hemicolectomy I repaired the ventral hernia with PDS suture and the patient has a recurrent hernia. It bulges especially if he eats too much or is lifting something heavy. ROS General General: Yes colon cancer; No weight change, appetite, fatigue, breast cancer or weakness HEENT HEENT: Yes eye injury and eye surgery; No difficulty swallowing, swollen glands or hoarseness Endo Endocrine: Yes diabetes mellitus; No thyroid disease, thyroid cancer, Hair loss, heat intolerance or cold intolerance Skin Skin: No rash or changing moles Breast Breast: No left breast lump, right breast lump, nipple discharge, breast pain, abnormal mammogram, abnormal US or breast enlargement Musc Musculoskeletal: Yes arthritis and rheumatoid arthritis; No back problems, gout or joint pain Cardio Cardiovascular: Yes heart disease and high blood pressure; No murmur, pacemaker, atrial fibrillation, heart attack, heart stent, palpitations, shortness of breat with exertion or chest pain Psych Psychiatric: No depression, anxiety or hearing voices Resp Respiratory: No shortness of breath, No sleep apnea, No cough, No COPD, No asthma, No emphysema and No wheezing Gastro Gastrointestinal: Yes abdominal pain, No nausea or vomiting, No diarrhea, No constipation, No blood in stool, Yes acid reflux, Yes hemorrhoids, No ulcers, No gallbladder problem and No black,tarry stools Aidan Hematologic: No blood thinners, No blood disorders, No bleeding, No anemia and No blood clots Neuro Neurologic: No system reviewed and no additional complaints, except as documented, No as per HPI, No abnormal gait, No abnormal hearing, No abnormal movements, No abnormal speech, No behavioral changes, No burning sensations, No confusion, No convulsions, No disequilibrium, No dizziness, No localized weakness, No frequent falls, No headache(s), No lack of coordination, No loss of vision, No memory loss, Yes numbness, No other visual disturbances, No radicular pain, No restless legs, No sensory deficit, No syncope, Yes tingling, No tremor(s), No weakness and No other Exam Const General: cooperative Orientation: alert and oriented x3 HENMT Head: normal to inspection Neck Neck: normal visual inspection and full ROM Chest Chest palpation & inspection: normal inspection of the chest Resp Effort & Inspection: normal respiratory effort Auscultation: clear to auscultation bilaterally Cardio Rate: regular rate Rhythm: regular rhythm GI Inspection: non-distended Palpation: soft, hernia ventral and nontender Skin General: no rashes or lesions noted Neuro General: patient alert and patient oriented x3 Extrem General: full ROM Psych Appearance: grossly normal Mental Status: mental status grossly normal Assessment and Plan Assessment and Plan (1) Ventral incisional hernia: Status: Acute Plan: The patient has an incisional ventral hernia from his right hemicolectomy. He had a prior hernia before the surgery as well. I discussed laparoscopic converted to open hybrid ventral hernia repair with mesh. I discussed the risks of the procedure with him and his such as bleeding, infection, injury to underlying organs, mesh infection. Patient understands the risks and is willing to proceed. He will stop his aspirin 5 days prior to the procedure. Bronson Jacobson MD Pager: [facility] [address] [place] [address], [address] [place] [address] Office: I have examined the patient and the H&P has been reviewed. There are no clinical changes since date of exam.
[2024-04-03 10:32] LABS: Bedside Glucose 134 mg/dL (74-106)
--- NOTE | 2024-04-03 10:45 | HERN_PTH ---
PATIENT: ATA DE LA TORRE LOC[place] [facility] [place][id number] AGE/SX: 73/M ROOM: RE04/03/[address]: Dr. Bronson Jacobson MD : 1950 BED: DIS: 04/03/2024 SPEC #: [id number] RECD: 04/03/24 13:35 STATUS: TAWANDA KHOI #: [id number] AWILDA: 04/03/24 10:[address]: Bronson Jacobson DEPT: SURGICAL PATHOLOGY RECD BY: Lexy Vickers ENTERED: 04/06/24 09:33 SP TYPE: Hernia OTHR DR: Dr. Jose Luis Larose MD Tissues: HERNIA Procedures: Surgery Specimen Level II HEADER OPERATION: Laparoscopic, ventral hernia repair with mesh PRE-OP DIAGNOSIS: Ventral hernia TISSUE SUBMITTED: Hernia sac MICROSCOPIC DIAGNOSIS Hernia sac, herniorrhaphy: Fibrosis and minimal chronic inflammation. AM. 04/07/2024 MICROSCOPIC DESCRIPTION Slides are reviewed. GROSS DESCRIPTION Received in fixative is one container labeled with the patient's name and designated Hernia sac. The specimen consists of two pieces of torncoso-yellow to pink soft tissue measuring in aggregate 4.0 x 2.0 x 1.0cm. No mass lesion is identified. Glassware Maker sections are submitted in one cassette. DARIAN/ 04/06/2024 TC:5 CPT:83101
[2024-04-03] MEDS: Cefazolin 2 GM in 0.9% Normal Saline (100mL Bag) 100 ML IV (11:50)
[2024-04-03] MEDS: 0.9% Normal Saline (Pres. free 10 ML Vial ×2 (12:32→12:34)
[2024-04-03] MEDS: BUPIVACAINE LIPOSOME/PF 20 ML VIAL OPERA.SITE (12:42)
--- NOTE | 2024-04-03 13:06 | PCM.POST.ANE ---
Anesthesia: Postop Eval I Current Vital Signs Temperature: 97.2 F Pulse Rate: 70 Blood Pressure: 148/78 Respiratory Rate: 20 Pulse Ox: 96 Oxygen Delivery Method: Room Air Assessment Airway patent: Yes Spontaneous unlabored respirations: Yes Mental status: Awake and Calm nausea: No Vomiting: No Anesthesia Complication: No Fluid Hydration Crystalloid volume administer (ml): 500 Total IV fluid infused: 500 Progress Note Anesthesia document: Postop Eval 1 completed: Yes
--- NOTE | 2024-04-03 13:23 | PCM.OPRPT ---
Report of Operation Date of Procedure: 04/03/24 Pre-Operative Diagnosis: Recurrent ventral hernia, 4 cm Post-Operative Diagnosis: Same Surgery/Procedure Performed:: Laparoscopic assisted hybrid open ventral hernia repair with mesh Type of Anesthesia: General/Regional Specimen's removed: Hernia sac Estimated Blood Loss (mL): 10 Description of Procedure: Patient was brought back to the operating room and general anesthesia was induced. The abdomen was prepped and draped in usual sterile fashion. The previous scar overlying the hernia was then incised and electrocautery was used to gain hemostasis. Dissection was carried deeply until the hernia was encountered. The fascia was grasped and elevated. The hernia sac was entered. The hernia sac was resected circumferentially. There was some adhesion near the falciform underneath to the omentum this was taken down using electrocautery. Next a medium Ventralex ST mesh with echo positioning device was chosen and placed through the midline incision with the catheter through the incision. The fascia was then reapproximated with interrupted 0 Nurolon sutures completely closing the hernia defect. Next the small 5 port was placed and the abdomen was insufflated to 15 mmHg. Under direct visualization two 5 mm ports were placed laterally. There was still some adhesion to the falciform. This was taken down using Enseal. After there was generous room around the hernia the balloon was inflated and it was brought up to the abdominal wall surface. It was tacked in place in 4 corners and then the green balloon was removed through the 5 port in entirety. Next the mesh was tacked circumferentially and 2 rows completely covering the defect with good overlap. Next a tap block was performed bilaterally under laparoscopic supervision. Next the abdomen was allowed to desufflate and the ports were removed. The incisions were injected with local anesthetic and closed with interrupted 4 Monocryl sutures. Dermabond glue was applied. Patient was awoken and taken to PACU in stable condition and tolerated the procedure well. Grafts/Implants Used: [address] mesh Admit VTE Documentation VTE Mechan Device Prophylaxis: SCD's
--- NOTE | 2024-04-03 13:34 | EX.PCM.DISCH ---
Discharge Instructions Diet Discharge Diet: Light diet - advance as tolerated Activity Discharge Activity: May Not Drive (for 2-3 days or while taking narcotic pain meds.) and May Shower (tomorrow) Lifting Restrictions: 20 pounds for 2 weeks Additional Activity Instructions:: Climbing stairs is fine, walking is encouraged. Sitting in bed may be uncomfortable. Sitting up using your lateral muscles (sitting up sideways) is usually more comfortable. Do not drive, work heavy equipment or sign legal documents for 24 hours. Pain medications may cause nausea, you should typically eat light foods as you take your pain medications. Pain medications may also cause constipation. If you have difficulty with this, discuss with your doctor. Alternate ibuprofen and Tylenol for pain control. Resume aspirin tomorrow. Dressing / Incision Call your doctor if your incision/area has: Continuous Slow Oozing, Sudden Increased Bleeding, Increased Pain/ Swelling, Increased Redness and Foul Smelling Discharge Call your doctor if you observe: Fever of 101 or Higher Suture Line Care: Avoid Pulling/Pushing and Avoid Pinching/Bending Cleanse incision/area with: Soap & Water Follow Up Care Please Follow Up With: Bronson Jacobson MD When: Please call to schedule 2 week follow up appointment. [phone] Test Results: Test results from this visit will be discussed in further detail at your follow-up appointment, if applicable. Discharge Plan Admission Attending Provider: Bronson Jacobson Primary Care Provider: Jose Luis Larose Instructions Print Language: Puerto Rican Discharge Orders/Prescriptions Prescriptions: No Action acetaminophen 500 mg capsule 500 mg PO Q6H PRN (Reason: pain) Qty: 1 0RF lisinopril 30 mg tablet 30 mg PO QDAY metformin 500 mg tablet extended release 24 hr 250 mg PO QDAY tadalafil 10 mg tablet 10 mg PO QDAY multivitamin 1 TABLET tablet 1 tab PO DAILY aspirin 81 MG tablet 81 mg PO DAILY@0800 Patient Comments: pt instructed to verify if need to stop for upcoming surgery esomeprazole magnesium 40 MG capsule,delayed release(DR/EC) 40 mg PO DAILY fluticasone propionate 16 GM spray,suspension 2 spray NASAL .DAILY PRN PRN (Reason: ALLERGIES) Patient Comments: USE 2 SPRAY(S) IN EACH NOSTRIL ONCE DAILY ezetimibe 10 MG tablet 10 mg PO DAILY ferrous sulfate [FeroSul] 325 mg (65 mg iron) tablet 325 mg PO BID Patient Comments: TAKE 1 TABLET BY MOUTH THREE TIMES DAILY indomethacin 50 mg capsule 50 mg PO TID PRN PRN (Reason: ALLERGIES) Rx Instructions: administer with food or milk Referrals / Follow Up: Jose Luis Larose MD [Primary Care Provider] - Disposition Disposition (needs filled in before D/C Order can be placed): Home, Self Care
--- NOTE | 2024-04-03 15:49 | POSTOPAN2_ITS ---
Anesthesia Postop Eval I Sum Postop Eval Completion status Anesthesia document: Postop Eval 1 completed: Yes Anesthesia Postop Eval I Summary Anesthesia Postop Eval I Summary: Anesthesia Postop Eval I: Assessment Summary Airway patent Yes 04/03/24 13:07 [email or web address] Spontaneous unlabored Yes 04/03/24 13:07 [email or web address] respirations Mental status Awake,Calm 04/03/24 13:07 [email or web address] nausea No 04/03/24 13:07 [email or web address] Vomiting No 04/03/24 13:07 [email or web address] Anesthesia Postop Eval I: Fluid Summary Crystalloid volume administer 500 04/03/24 13:07 [email or web address] (ml) Colloids volume administered ( ml) Blood Product volume administered (ml) Total IV fluid infused 500 04/03/24 13:07 [email or web address] Anesthesia Postop Eval I: Summary Notes Anesthesia Complication No 04/03/24 13:07 [email or web address] Anesthesia Complication Comment: Post-operative progress note Anesthesia: Postop Eval II Evaluation Mental status: Awake and Calm Pain Level: 2 nausea: No Vomiting: No Complications Anesthesia Complication: No
--- NOTE | 2024-04-03 15:49 | PCM.POSTANE2 ---
Anesthesia Postop Eval I Sum Postop Eval Completion status Anesthesia document: Postop Eval 1 completed: Yes Anesthesia Postop Eval I Summary Anesthesia Postop Eval I Summary: Anesthesia Postop Eval I: Assessment Summary Airway patent Yes 04/03/24 13:07 FAMILY [email or web address] [email or web address] Spontaneous unlabored Yes 04/03/24 13:07 FAMILY MEDICINE [email or web address] respirations Mental status Awake,Calm 04/03/24 13:07 FAMILY MEDICINE [email or web address] nausea No 04/03/24 13:07 FAMILY MEDICINE [email or web address] Vomiting No 04/03/24 13:07 FAMILY [email or web address] [email or web address] Anesthesia Postop Eval I: Fluid Summary Crystalloid volume administer 500 04/03/24 13:07 FAMILY MEDICINE [email or web address] (ml) Colloids volume administered ( ml) Blood Product volume administered (ml) Total IV fluid infused 500 04/03/24 13:07 FAMILY [email or web address] [email or web address] Anesthesia Postop Eval I: Summary Notes Anesthesia Complication No 04/03/24 13:07 FAMILY MEDICINE [email or web address] Anesthesia Complication Comment: Post-operative progress note Anesthesia: Postop Eval II Evaluation Mental status: Awake and Calm Pain Level: 2 nausea: No Vomiting: No Complications Anesthesia Complication: No
== END 2024-04-03 15:27 | disposition home or self-care (01) ==
LOC: SDC 09:29 → AC 09:31
PROVIDERS: Anesthesiology; PCP Family Medicine; Referring Provider Surgery; Visit Provider Surgery
PROC: 0WQF4ZZ Repair Abdominal Wall, Percutaneous Endoscopic Approach (ICD-10-PCS; CPT 49615; principal; 2024-04-03 10:25)
DX: K43.2 Incisional hernia without obstruction or gangrene (principal); E11.9 Type 2 diabetes mellitus without complications; D50.9 Iron deficiency anemia, unspecified; G89.29 Other chronic pain; I10 Essential (primary) hypertension; I44.7 Left bundle-branch block, unspecified; Z95.1 Presence of aortocoronary bypass graft; Z90.79 Acquired absence of other genital organ(s); Z90.49 Acquired absence of other specified parts of digestive tract; K21.9 Gastro-esophageal reflux disease without esophagitis; N40.0 Benign prostatic hyperplasia without lower urinary tract symptoms; Z85.46 Personal history of malignant neoplasm of prostate; I25.10 Atherosclerotic heart disease of native coronary artery without angina pectoris; Z86.14 Personal history of Methicillin resistant Staphylococcus aureus infection; Z79.82 Long term (current) use of aspirin; R91.8 Other nonspecific abnormal finding of lung field; Z86.711 Personal history of pulmonary embolism; Z86.2 Personal history of diseases of the blood and blood-forming organs and certain disorders involving the immune mechanism
CPT/HCPCS: 49615; 00832; 36415; 82962; 83036; 85027; 85610; 85730; 88302; 93005; J7120; J2405; J3490

== ENCOUNTER → 2024-07-09 | Outpatient (CLI) | payer MEDICARE, BC, SELFPAY ==
[2024-07-09 09:21] LABS: Absolute Lymphocyte Count 1.55 X10^3/uL (0.83-4.51); Absolute Neutrophil Count 3.5 X10^3/uL (2.0-7.7); Basophil# 0.05 X10^3/uL; Basophil% 0.9 % (0-1); Eosinophil# 0.13 X10^3/uL; Eosinophils% 2.3 % (0-5); Hematocrit 38.4 % (40-54); Hemoglobin 12.9 g/dL (13.0-16.5); Lymphocyte # 1.55 X10^3/ul (0.83-4.51); Lymphocyte % 27.5 % (19-41); Mean Corp Hgb Conc 33.6 g/dL (32-36); Mean Corpuscular Hgb 29.2 pg (27.0-32.0); Mean Corpuscular Volume 86.9 fL (80-94); Mean Platelet Vol. 10.6 fl (6.2-12.0); Monocyte# 0.38 X10^3/uL; Monocyte% 6.7 % (0-10); NRBC Flagged by Analyzer 0 % (0-5); Neutrophil # 3.49 X10^3/uL (2.7-7.7); Neutrophil % 62.1 % (47-70); Platelet Count 148 K/mm3 (150-450); RBC Distribution Width CV 13.2 % (11.6-14.6); RBC Distribution Width SD 41.2 fl (35.1-43.9); Red Blood Count 4.42 M/mm3 (4.6-6.2); White Blood Count 5.6 K/mm3 (4.4-11.0)
[2024-07-09 10:02] LABS: ALB/GLOB Ratio 1.3 RATIO (0.9-2.4); AST(SGOT) 16 U/L (15-37); Alanine Aminotransfer ALT/SGPT 23 U/L (16-61); Albumin, Serum 3.9 g/dL (3.2-5.0); Alkaline Phosphatase 68 U/L (45-117); Anion Gap 3 (5-15); BUN 38 mg/dL (7-18); BUN/Creat Ratio 31.1 RATIO (10-20); Calcium,Total 9.4 mg/dL (8.5-10.1); Chloride 113 mmol/L (98-107); Cholesterol 175 mg/dL (200); Creatinine, Serum 1.22 mg/dL (0.70-1.30); EST Glomerular Filtration Rate 62 mL/min (>60); Est Glom Filt Rate - Afr Amer 75 mL/min (>60); Ferritin 20 ng/mL (26-388); Glucose 146 mg/dL (74-106); High Density Lipoprotein 43 mg/dL; Iron 57 ug/dL (65-175); Iron Binding Capacity,Total 369 ug/dL (250-450); PERCENT IRON SATURATION 15.4 % (15.0-55.0); PSA,Total- Diagnostic 0.46 ng/mL (0.0-4.0); Potassium 5.8 mmol/L (3.5-5.1); Protein, Total 6.9 g/dL (6.4-8.2); Sodium Level 138 mmol/L (136-145); Triglycerides 136 mg/dL; Very Low Density Lipoprotein 27 mg/dL (5-40)
[2024-07-09 10:04] LABS: Vitamin B12 1630 pg/mL (211-911)
[2024-07-09 10:13] LABS: Hemoglobin A1c 7.2 % (3.8-5.6)
[2024-07-10 04:07] LABS: Carcinoembryonic Antigen 3.7 ng/mL (0.0-4.7)
== END | disposition home or self-care (01) ==
PROVIDERS: PCP Family Medicine; Referring Provider Internal Medicine Hematology & Oncology; Visit Provider Internal Medicine Hematology & Oncology
DX: E11.21 Type 2 diabetes mellitus with diabetic nephropathy (principal); C18.2 Malignant neoplasm of ascending colon; Z85.46 Personal history of malignant neoplasm of prostate
CPT/HCPCS: 80053; 80061; 82378; 82607; 82728; 83036; 83540; 83550; 84153; 85025

== ENCOUNTER 2024-12-26 17:32 | Emergency (ER) | payer MEDICARE, BC, SELFPAY ==
[2024-12-26 17:33] VITALS: BP 147/72; PULSE 66; RESP 16; TEMP 36.9; O2SAT 94; BMI 30.9
--- NOTE | 2024-12-26 18:17 | ED.VIS.LOWEX ---
HPI History of Present Illness HPI Narrative: Patient presents with bilateral lower extremity pain that has been getting worse over the past 2 weeks. Patient had his look at the back of his legs and she noted some spots on the back of his thighs. Patient states this is at the portion of his thigh where his legs rest on a wooden chair when he normally sits down. Patient and spouse are concerned that this is a DVT. Patient denies any paresthesias or weakness. Patient denies any trauma or injury. Chief Complaint: Lower Extremity Injury Onset/Context/Timing Onset: Weeks (2) Context: Gradual Onset Timing: Continuous Quality of Pain: Aching Location: Bilateral posterior thighs Worsened by: Nothing Relieved by: Nothing Associated Symptoms Associated Symptoms: Negative for Parasthesia, Weakness or Loss of Funtion PFSH PFS Medical History Carpal tunnel syndrome Diabetes Anxiety History of steroid therapy History of ulceration History of GI bleed Gastric reflux History of pain when walking Wears glasses Cancer Arthritis Mendoza esophagus History of hiatal hernia Non-smoker Cardiology follow-up encounter Pneumonia due to 2019-nCoV Lung nodules Iron deficiency anemia History of prostate cancer Head trauma Alcohol use History of stress test 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 History of neck injury Anemia BPH (benign prostatic hyperplasia) Chronic sinusitis Uncontrolled type 2 diabetes mellitus CAD (coronary artery disease) History of MRSA infection GERD (gastroesophageal reflux disease) Hyperlipidemia Hypertension Home Medications ?Medication ?Instructions ?Recorded ?Last Taken ?Type aspirin 81 mg tablet,delayed 81 mg PO DAILY@0800 HEART HEALTH 10/27/20 03/29/24 History release esomeprazole magnesium 40 mg 40 mg PO DAILY GERD 10/27/20 04/03/24 History capsule,delayed release ezetimibe 10 mg tablet 10 mg PO DAILY CHOLESTEROL 10/27/20 04/02/24 History fluticasone propionate 50 2 spray NASAL .DAILY PRN PRN 10/27/20 04/03/24 History mcg/actuation nasal ALLERGIES spray,suspension multivitamin 1 tab PO DAILY SUPPLEMENT 10/27/20 04/02/24 History acetaminophen 500 mg capsule 500 mg PO Q6H PRN pain #1 cap 12/28/21 04/05/23 Rx ferrous sulfate 325 mg (65 mg 325 mg PO BID 01/26/22 04/02/24 History iron) tablet (FeroSul) tadalafil 10 mg tablet 10 mg PO QDAY 02/05/24 04/03/24 History indomethacin 50 mg capsule 50 mg PO TID PRN PRN ALLERGIES 03/05/24 04/02/24 History lisinopril 30 mg tablet 40 mg PO QDAY 07/15/24 Unknown History Allergy/AdvReac Type Severity Reaction Status Date / Time Uapexsc-[id number] Reductase AdvReac Severe Other Verified 12/26/24 17:32 Inhibitor (Wromddl-Gvv-Aab Reductase Inhibitor) Family History Other Cancer Heart disease Hypertension Surgical History S/P repair of ventral hernia Hx of right cataract extraction Hx of left cataract extraction Hx of right hemicolectomy S/P colectomy History of plastic surgery History of neck surgery (~2017) History of heart bypass surgery (~2010) History of prostatectomy (~2010) History of colonoscopy (~2010) Social History household members: spouse Smoking Status: Never smoker second hand exposure: No details: RARELY substance use type: does not use seatbelt use: always do you feel safe at home: Yes ROS ROS ED Constitutional Constitutional ED: Denies chills or fever(s) Eyes Eyes: Denies blurry vision or change in vision ENT ENT ED: Denies rhinorrhea or sore throat Cardiovascular Cardiovascular: Denies chest pain or palpitations Respiratory/Chest Respiratory/Chest: Denies cough or dyspnea Gastrointestinal Gastrointestinal: Denies nausea or vomiting Genitourinary Genitourinary ED: Denies dysuria or hematuria Musculoskeletal Musculoskeletal: Denies back pain or neck pain Integumentary Reports rash; Denies abscess Neurologic Neurologic: Denies headache(s) or weakness Allergic/Immunologic Allergic/Immunologic ED: Denies mouth swelling or urticaria EXAM Physical Exam Const Vital Signs: 12/26/24 17:33 Temperature 98.4 F Temperature Source Oral Pulse Rate 66 Respiratory Rate 16 Blood Pressure 147/72 H Blood Pressure Mean 97 Pulse Ox 94 Oxygen Delivery Method Room Air Positive well nourished and well developed Constitutional Narrative: BMI is 30.9 General Appearance ED: well developed and NAD HEENT Reports moist mucous membranes Neck full ROM and supple Extremity Extremity Narrative: There is mild tenderness and edema over the posterior aspect of the thighs bilaterally. There is no ecchymosis. There is no deformity noted. There is good range of motion. Sensation was intact to light touch bilaterally in the lower extremities. Strength is 5/5 bilaterally in lower extremities. Pedal pulses are equal bilaterally. There is no calf edema. Neuro oriented x3, CN's II-XII intact bilaterally, moves all extremities and no sensory deficits noted Sensorium / Orientation: alert Motor Exam: strength 5/5 throughout Psych mental status grossly normal MDM MDM MDM Narrative Medical decision making narrative: The patient was advised that a venous duplex was unable to be obtained today. Patient was given a dose of Lovenox here. Patient was given an order to return tomorrow for outpatient venous duplex of his lower extremities to assess for DVT. Patient and spouse are comfortable with this plan. Patient was instructed to return if worse in any way. The patient and spouse understood and were agreeable with the plan. All questions were answered. Discharge Plan Triage Chief Complaint: Lower Extremity Injury ED Provider: Radu Evans Dx/Rx/DC Orders Clinical Impression: Bilateral lower extremity pain, Hypertension Instructions: ED Pain, Acute, Uncertain Cause Prescriptions: No Action acetaminophen 500 mg capsule 500 mg PO Q6H PRN (Reason: pain) Qty: 1 0RF tadalafil 10 mg tablet 10 mg PO QDAY lisinopril 30 mg tablet 40 mg PO QDAY multivitamin 1 TABLET tablet 1 tab PO DAILY aspirin 81 MG tablet 81 mg PO DAILY@0800 Patient Comments: pt instructed to verify if need to stop for upcoming surgery esomeprazole magnesium 40 MG capsule,delayed release(DR/EC) 40 mg PO DAILY fluticasone propionate 16 GM spray,suspension 2 spray NASAL .DAILY PRN PRN (Reason: ALLERGIES) Patient Comments: USE 2 SPRAY(S) IN EACH NOSTRIL ONCE DAILY ezetimibe 10 MG tablet 10 mg PO DAILY ferrous sulfate [FeroSul] 325 mg (65 mg iron) tablet 325 mg PO BID Patient Comments: TAKE 1 TABLET BY MOUTH THREE TIMES DAILY indomethacin 50 mg capsule 50 mg PO TID PRN PRN (Reason: ALLERGIES) Rx Instructions: administer with food or milk Other Ambulatory Orders: Venous Duplex US - Kelvin Extrem (Stat) Facility: [facility] - Location: [facility] Ordered By: Dr. Radu Evans Primary Care Provider: Jose Luis Larose Referrals: Jose Luis Larose MD [Primary Care Provider] - 5-7 Days Print Language: Serbian Disposition Disposition: Home, Self Care
[2024-12-26 18:43] VITALS: BP 142/72; PULSE 66; RESP 18; TEMP 36.9; O2SAT 94
[2024-12-26] MEDS: Enoxaparin 100 MG/ML Syringe SC (18:44)
== END 2024-12-26 18:45 | disposition home or self-care (01) ==
PROVIDERS: Emergency Provider Emergency Medicine; PCP Family Medicine; Visit Provider Emergency Medicine
DX: M79.605 Pain in left leg (principal); E11.9 Type 2 diabetes mellitus without complications; I25.10 Atherosclerotic heart disease of native coronary artery without angina pectoris; I10 Essential (primary) hypertension; E78.5 Hyperlipidemia, unspecified; M79.604 Pain in right leg; K21.9 Gastro-esophageal reflux disease without esophagitis
CPT/HCPCS: 96372; 99282

== ENCOUNTER → 2024-12-27 | Outpatient (CLI) | payer MEDICARE, BC, SELFPAY ==
--- NOTE | 2024-12-27 11:11 | VDLE_ITS ---
Reason For Study Reason For Study: Bilateral leg pain RIGHT LEFT GSV is normal. GSV is normal. CFV is compressible, spontaneous, phasic, competent CFV is compressible, spontaneous, phasic, competent, and demonstrates normal augmentation. and demonstrates normal augmentation. FV is compressible, spontaneous, phasic, competent FV is compressible, spontaneous, phasic, competent and demonstrates normal augmentation. and demonstrates normal augmentation. POP V is compressible, spontaneous, phasic, competent POP V is compressible, spontaneous, phasic, competent and demonstrates normal augmentation. and demonstrates normal augmentation. T/P Trunk is compressible. T/P Trunk is compressible. PTV is compressible. PTV is compressible. RT PerV is compressible. LT PerV is compressible. Procedure Nonvascularized structure posterior prox thigh that This is a venous duplex using B-mode, color flow and measures 0.30 x 2.0 cm. spectral Doppler. Exam performed in department. A preliminary report was called and/or faxed to PCP: Dr. Larose. Patient seen as next day ED. VL/Venous Duplex US - Kelvin Extrem Interpretation Summary Deep veins of the bilateral lower extremities are patent and compressible segme ntally. There is no evidence of bilateral lower extremity deep vein thrombosis. The bilateral great saphenous veins appea r patent and compressible segmentally. Nonvascularized structure posterior prox thigh that measures 0.30 x 2.0 cm. Ordering Physician: Radu Evans Referring Physician: MD Jose Luis Parisi Performed By: Mary Kay Arteaga RVT
== END | disposition home or self-care (01) ==
LOC: CVS 11:07
PROVIDERS: PCP Family Medicine; Referring Provider Emergency Medicine; Visit Provider Emergency Medicine
DX: M79.662 Pain in left lower leg (principal)
CPT/HCPCS: 93970

== ENCOUNTER 2025-01-01 06:56 | Day surgery (SDC) | payer MEDICARE, BC, SELFPAY ==
--- NOTE | 2024-12-30 14:15 | PAT.ANESEVAL ---
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 When Was Last Pacemaker Check QUESTION #4 FULL TEXT: You/Your Family Experience fever (hyperthermia) with Anesthesia Last Oral Intake Last Oral intake: Last Oral Intake NPO since Meds taken in AM with sips of water? 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 Female No 12/30/24 10:43 HX of Motion Sickness No 12/30/24 10:43 HX of N/V After Surgery No 12/30/24 10:43 Non-Smoker Yes 12/30/24 10:43 Duration of Surgery greater No 12/30/24 10:43 than 60 minutes Number of Risk Factors 1 12/30/24 10:43 PONV Score Low Risk 12/30/24 10:43 Height & Weight Height & Weight: Anesthesia: Height & Weight Height 6 ft 12/26/24 17:33 Respiratory Assessment Respiratory Assessment - production broaching machine operator: Respiratory Tract Infection Hx - production broaching machine operator Hx Respiratory Tract Infection No 12/30/24 10:43 STOP Sleep Apnea STOP Sleep Apnea - production broaching machine operator: STOP Sleep Apnea - production broaching machine operator Hx Hypertension Yes: CONTROLLED WITH MED 12/30/24 10:43 Hx Sleep Apnea No 12/30/24 10:43 CPAP No 12/30/24 10:43 BIPAP Do you snore loudly (louder No 12/30/24 10:43 than talking or can be heard Do you often feel tired/ No 12/30/24 10:43 fatigued/ sleepy during daytime? Has anyone observed you stop No 12/30/24 10:43 breathing during sleep? STOP Results Negative 12/30/24 10:43 QUESTION #5 FULL TEXT : Do you snore loudly (louder than talking or can be heard through closed doors)? 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 Specify any problems Hx of Preganancy in last 3 N/A 12/30/24 10:43 Months Nurse Filling Out Transfusion VCHRISTIN 12/30/24 10:43 & Questions: Date: 12/30/24 12/30/24 10:43 Time: 10:43 12/30/24 10:43 Patient unable to answer at this time (ie. 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: /Reproductive Hx- production broaching machine operator Hx Now No 12/30/24 10:43 Gestational Age (in weeks): EDC: Hx Hx Para Hx Section SAB No 12/30/24 10:43 [facility] Medical History (Updated 12/30/24 @ 10:43 by Estella Alas) Carpal tunnel syndrome Diabetes Anxiety History of steroid therapy History of ulceration History of GI bleed Gastric reflux History of pain when walking Wears glasses Cancer Arthritis Mendoza esophagus History of hiatal hernia Non-smoker Cardiology follow-up encounter Pneumonia due to 2019-nCoV Lung nodules Iron deficiency anemia History of prostate cancer Head trauma Alcohol use History of stress test 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 History of neck injury Anemia BPH (benign prostatic hyperplasia) Chronic sinusitis Uncontrolled type 2 diabetes mellitus CAD (coronary artery disease) History of MRSA infection GERD (gastroesophageal reflux disease) Hyperlipidemia Hypertension Home Medications ?Medication ?Instructions ?Recorded ?Last Taken ?Type aspirin 81 mg tablet,delayed 81 mg PO DAILY@0800 HEART HEALTH 10/27/20 12/27/24 History release esomeprazole magnesium 40 mg 40 mg PO DAILY GERD 10/27/20 04/03/24 History capsule,delayed release ezetimibe 10 mg tablet 10 mg PO DAILY CHOLESTEROL 10/27/20 04/02/24 History fluticasone propionate 50 2 spray NASAL .DAILY PRN PRN 10/27/20 04/03/24 History mcg/actuation nasal ALLERGIES spray,suspension multivitamin 1 tab PO DAILY SUPPLEMENT 10/27/20 04/02/24 History acetaminophen 500 mg capsule 500 mg PO Q6H PRN pain #1 cap 12/28/21 04/05/23 Rx ferrous sulfate 325 mg (65 mg 325 mg PO DAILY 01/26/22 04/02/24 History iron) tablet (FeroSul) tadalafil 10 mg tablet 10 mg PO QDAY 02/05/24 04/03/24 History indomethacin 50 mg capsule 50 mg PO TID PRN PRN ALLERGIES 03/05/24 04/02/24 History lisinopril 40 mg tablet 40 mg PO DAILY 12/30/24 Unknown History Allergy/AdvReac Type Severity Reaction Status Date / Time Ppaaoue-QHJ-YzY Reductase AdvReac Severe Other Verified 12/30/24 10:35 Inhibitor (Kuxvvlj-Vod-Qnn Reductase Inhibitor) Family History Other Cancer Heart disease Hypertension Surgical History (Updated 12/30/24 @ 10:43 by Estella Alas) Hx of hernia repair S/P repair of ventral hernia Hx of right cataract extraction Hx of left cataract extraction Hx of right hemicolectomy S/P colectomy History of plastic surgery History of neck surgery (~2017) History of heart bypass surgery (~2010) History of prostatectomy (~2010) History of colonoscopy (~2010) Social History household members: spouse Smoking Status: Never smoker second hand exposure: No details: RARELY substance use type: does not use seatbelt use: always do you feel safe at home: Yes Audit: Pertinent Findings Pertinent Findings EKG Perinent findings: NSR w/ LBBB (03/2024) Recommendation Anesthesia Recommendation Anesthesia recommendation: OPTIMIZED for anesthesia
[2025-01-01] VITALS (8 sets, daily range): BP systolic 112–131; BP diastolic 56–77; PULSE 60–70; RESP 16; TEMP 36.6–37.2; O2SAT 94–98; BMI 30.5
[2025-01-01] MEDS: Lactated Ringers 1,000 ML 15 ML IV (07:41)
--- NOTE | 2025-01-01 08:00 | PCM.HP.BLA ---
History and Physical Date of Admission: 01/01/25 Intake Vital Signs 07/15/2415:20 12/11/2511:53 Height 6 ft 6 ft Weight: 229 lb 7 oz 227 lb BMI 31.1 30.7 BP 134/73 H 163/74 H Blood Pressure Location Rt brachial Rt brachial Position Sitting Sitting Respiration 16 17 Pulse 70 67 Pulse Source Monitor Monitor Temp 97.5 F L Pulse Oximetry (%) 97 97 Oxygen Delivery Method room air room air Intake Visit Reasons: RECALL EGD Chief Complaint: recall EGD Is patient in pain?: No Allergies Oxdjhqh-UMW-LsL Reductase Inhibitor (Ryxycti-Eyc-Qla Reductase Inhibitor) Adverse Reaction (Severe, Verified 12/10/24 12:54) Other Medications ?Medication ?Instructions ?Recorded ?Confirmed ?Type aspirin 81 mg tablet,delayed 81 mg PO DAILY@0800 HEART HEALTH 10/27/20 12/10/24 History release esomeprazole magnesium 40 mg 40 mg PO DAILY GERD 10/27/20 12/10/24 History capsule,delayed release ezetimibe 10 mg tablet 10 mg PO DAILY CHOLESTEROL 10/27/20 12/10/24 History fluticasone propionate 50 2 spray NASAL .DAILY PRN PRN 10/27/20 12/10/24 History mcg/actuation nasal ALLERGIES spray,suspension multivitamin 1 tab PO DAILY SUPPLEMENT 10/27/20 12/10/24 History acetaminophen 500 mg capsule 500 mg PO Q6H PRN pain #1 cap 12/28/21 12/10/24 Rx ferrous sulfate 325 mg (65 mg 325 mg PO BID 01/26/22 12/10/24 History iron) tablet (FeroSul) tadalafil 10 mg tablet 10 mg PO QDAY 02/05/24 12/10/24 History indomethacin 50 mg capsule 50 mg PO TID PRN PRN ALLERGIES 03/05/24 12/10/24 History lisinopril 30 mg tablet 40 mg PO QDAY 07/15/24 12/10/24 History Have you fallen in the past year?: No PFSH Medical History Diabetes Anxiety History of steroid therapy History of ulceration History of GI bleed Gastric reflux History of pain when walking Wears glasses Cancer Arthritis Mendoza esophagus History of hiatal hernia Non-smoker Cardiology follow-up encounter Pneumonia due to 2019-nCoV Lung nodules Iron deficiency anemia History of prostate cancer Head trauma Alcohol use History of stress test 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 History of neck injury Anemia BPH (benign prostatic hyperplasia) Chronic sinusitis Uncontrolled type 2 diabetes mellitus CAD (coronary artery disease) History of MRSA infection GERD (gastroesophageal reflux disease) Hyperlipidemia Hypertension Surgical History S/P repair of ventral hernia Hx of right cataract extraction Hx of left cataract extraction Hx of right hemicolectomy S/P colectomy History of plastic surgery History of neck surgery (~2017) History of heart bypass surgery (~2010) History of prostatectomy (~2010) History of colonoscopy (~2010) Family History Other Cancer Heart disease Hypertension Social History household members: spouse Smoking Status: Never smoker second hand exposure: No details: RARELY substance use type: does not use seatbelt use: always do you feel safe at home: Yes HPI HPI HPI: Patient is a 74-year-old male here for Mendoza's esophagus for EGD. Patient reports he is still eating Tums and still gets acid reflux and belching despite being on Nexium. ROS General General: Yes colon cancer; No weight change, appetite, fatigue, breast cancer or weakness HEENT HEENT: Yes eye injury and eye surgery; No difficulty swallowing, swollen glands or hoarseness Endo Endocrine: Yes diabetes mellitus; No thyroid disease, thyroid cancer, Hair loss, heat intolerance or cold intolerance Skin Skin: No rash or changing moles Musc Musculoskeletal: Yes arthritis and rheumatoid arthritis; No back problems, gout or joint pain Cardio Cardiovascular: Yes heart disease and high blood pressure; No murmur, pacemaker, atrial fibrillation, heart attack, heart stent, palpitations, shortness of breath with exertion or chest pain Psych Psychiatric: No depression, anxiety or hearing voices Resp Respiratory: No shortness of breath, No sleep apnea, No cough, No COPD, No asthma, No emphysema and No wheezing Gastro Gastrointestinal: No abdominal pain, No nausea or vomiting, No diarrhea, No constipation, No blood in stool, Yes acid reflux, Yes hemorrhoids, No ulcers, No gallbladder problem and No black,tarry stools Aidan Hematologic: No blood thinners, No blood disorders, No bleeding, No anemia and No blood clots Neuro Neurologic: No system reviewed and no additional complaints, except as documented, No as per HPI, No abnormal gait, No abnormal hearing, No abnormal movements, No abnormal speech, No behavioral changes, No burning sensations, No confusion, No convulsions, No disequilibrium, No dizziness, No localized weakness, No frequent falls, No headache(s), No lack of coordination, No loss of vision, No memory loss, Yes numbness, No other visual disturbances, No radicular pain, No restless legs, No sensory deficit, No syncope, Yes tingling, No tremor(s), No weakness and No other Exam Const General: cooperative Orientation: alert and oriented x3 HENMT Head: normal to inspection Neck Neck: normal visual inspection and full ROM Chest Chest palpation & inspection: normal inspection of the chest Resp Effort & Inspection: normal respiratory effort Auscultation: clear to auscultation bilaterally Cardio Rate: regular rate Rhythm: regular rhythm GI Inspection: non-distended Palpation: soft and nontender Skin General: no rashes or lesions noted Neuro General: patient alert and patient oriented x3 Extrem General: full ROM Psych Appearance: grossly normal Mental Status: mental status grossly normal Assessment and Plan Assessment and Plan (1) 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 Patient is still having issues with acid reflux as well as belching. I explained endoscopy in detail to the patient. I explained the risks including but not limited to stroke or heart attack with anesthesia, perforation of the GI tract, bleeding, infection. I explained that any of these could necessitate further emergency surgery. The patient understands and all questions were answered sufficiently. The patient wishes to proceed with procedure. Patient will hold his aspirin for 5 days. Bronson Jacobson MD Pager: [facility] [address] [place] [address], [address] [place] [address] Office: I have examined the patient and the H&P has been reviewed. There are no clinical changes since date of exam.
--- NOTE | 2025-01-01 08:05 | PCM.PRE.AN2 ---
ASA Classification* ASA Classification ASA Classification: 3 Assessment & Plan Anesthesia* Anesthesia Assessment Anesthesia Assessment: Discussed sedation and/or anesthesia options, risks, benefits, and alternatives with patient/parents/legal guardian/POA. Questions invited. The patient/parents/legal guardian/POA seems to understand and agrees to proceed with anesthesia plan. Reviewed the physical assessment, medical history, allergy history and patient home medications list prior to surgery/procedure/anesthetic and documented any changes. Performed airway and anesthesia risk assessments. Anesthesia Type Anesthesia Type: MAC History Source History Obtained from:: Patient, Chart and Significant Other Anesthesia Focused Assessment* Temperature: 97.8 F Pulse Rate: 64 Blood Pressure: 131/77 Respiratory Rate: 16 Pulse Ox: 98 Oxygen Delivery Method: Room Air Airway Assessment Mouth opens: >3 cm Mallampati Score: II Teeth Condition: Intact Neck Range of motion (ROM): Limited ROM (cervical fusion limited ROM) Focused Labs Anesthesia Preop lab: CBC WBC 5.6 K/mm3 (4.4-11.0) 07/09/24 08:56 07/09/24 RBC 4.42 M/mm3 (4.6-6.2) L 07/09/24 08:56 07/09/24 Hgb 12.9 g/dL (13.0-16.5) L 07/09/24 08:56 07/09/24 Hct 38.4 % (40-54) L 07/09/24 08:56 07/09/24 Plt Count 148 K/mm3 (150-450) L 07/09/24 08:56 07/09/24 CHEMISTRY Potassium 5.8 mmol/L (3.5-5.1) H 07/09/24 08:56 07/09/24 Sodium 138 mmol/L (136-145) 07/09/24 08:56 07/09/24 Magnesium 2.4 mg/dL (1.6-2.6) 12/27/20 11:59 12/27/20 BUN 38 mg/dL (7-18) H 07/09/24 08:56 07/09/24 Creatinine 1.22 mg/dL (0.70-1.30) 07/09/24 08:56 07/09/24 Glucose 146 mg/dL (74-106) H 07/09/24 08:56 07/09/24 POC Glucose 134 mg/dL (74-106) H 04/03/24 09:53 04/03/24 COAG PT 13.2 SECONDS (11.7-14.9) 03/12/24 15:14 03/12/24 Pre-Assessment Diagnosis/Proposed Procedure Planned Operative Procedure(s): EGD Anesthesia History Anesthesia History - chocolate finisher: Anesthesia History - chocolate finisher Hx Hospitalization No 12/30/24 10:43 Any Problems With Anesthesia No 12/30/24 10:43 Cholinesterase deficiency No 12/30/24 10:43 You/Your Family Experience No 12/30/24 10:43 fever (hyperthermia) with Relationship Recent Exposure to Contagious No 01/01/25 07:38 Disease Does patient have nerve No 12/30/24 10:43 stimulator Patient instructed to have device shut off --Does patient have Pacemaker No 01/01/25 07:38 or ICD? When Was Last Pacemaker Check QUESTION #4 FULL TEXT: You/Your Family Experience fever (hyperthermia) with Anesthesia Last Oral Intake Last Oral intake: Last Oral Intake NPO since 20:00 01/01/25 07:38 Meds taken in AM with sips of Yes 01/01/25 07:38 water? Meds patient instructed to tadalafil, ezetimibe, nexium 01/01/25 07:38 take am of surgery , lisinopril PONV PONV - chocolate finisher: PONV - chocolate finisher Female No 12/30/24 10:43 HX of Motion Sickness No 12/30/24 10:43 HX of N/V After Surgery No 12/30/24 10:43 Non-Smoker Yes 12/30/24 10:43 Duration of Surgery greater No 12/30/24 10:43 than 60 minutes Number of Risk Factors 1 12/30/24 10:43 PONV Score Low Risk 12/30/24 10:43 Height & Weight Height & Weight: Anesthesia: Height & Weight Height 6 ft 01/01/25 07:38 Weight: 102.2 kg 01/01/25 07:38 Body Mass Index (BMI) 30.5 01/01/25 07:38 Respiratory Assessment Respiratory Assessment - chocolate finisher: Respiratory Tract Infection Hx - chocolate finisher Hx Respiratory Tract Infection No 12/30/24 10:43 STOP Sleep Apnea STOP Sleep Apnea - chocolate finisher: STOP Sleep Apnea - chocolate finisher Hx Hypertension Yes: CONTROLLED WITH MED 12/30/24 10:43 Hx Sleep Apnea No 12/30/24 10:43 CPAP No 12/30/24 10:43 BIPAP Do you snore loudly (louder No 12/30/24 10:43 than talking or can be heard Do you often feel tired/ No 12/30/24 10:43 fatigued/ sleepy during daytime? Has anyone observed you stop No 12/30/24 10:43 breathing during sleep? STOP Results Negative 12/30/24 10:43 QUESTION #5 FULL TEXT : Do you snore loudly (louder than talking or can be heard through closed doors)? 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 Specify any problems Hx of Preganancy in last 3 N/A 12/30/24 10:43 Months Nurse Filling Out Transfusion VCHRISTIN 12/30/24 10:43 & Questions: Date: 12/30/24 12/30/24 10:43 Time: 10:43 12/30/24 10:43 Patient unable to answer at this time (ie. confused, unrespo /Reproduction History /Reproductive History - chocolate finisher: /Reproductive Hx- chocolate finisher Hx Now No 12/30/24 10:43 Gestational Age (in weeks): EDC: Hx Hx Para Hx Section SAB No 12/30/24 10:43 Active Medications Active Medications: Current Medications Generic Name Dose Route Start Last Admin Trade Name Freq PRN Reason Stop Dose Admin Lactated Ringer's 1,000 mls @ 15 mls/hr 01/01/25 07:15 01/01/25 07:41 IV 15 mls/hr .Q48H ARAM Administration PFSH Medical History (Updated 12/30/24 @ 10:43 by Estella Alas) Carpal tunnel syndrome Diabetes Anxiety History of steroid therapy History of ulceration History of GI bleed Gastric reflux History of pain when walking Wears glasses Cancer Arthritis Mendoza esophagus History of hiatal hernia Non-smoker Cardiology follow-up encounter Pneumonia due to 2019-nCoV Lung nodules Iron deficiency anemia History of prostate cancer Head trauma Alcohol use History of stress test 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 History of neck injury Anemia BPH (benign prostatic hyperplasia) Chronic sinusitis Uncontrolled type 2 diabetes mellitus CAD (coronary artery disease) History of MRSA infection GERD (gastroesophageal reflux disease) Hyperlipidemia Hypertension Home Medications ?Medication ?Instructions ?Recorded ?Last Taken ?Type aspirin 81 mg tablet,delayed 81 mg PO DAILY@0800 HEART HEALTH 10/27/20 12/27/24 History release esomeprazole magnesium 40 mg 40 mg PO DAILY GERD 10/27/20 01/01/25 History capsule,delayed release ezetimibe 10 mg tablet 10 mg PO DAILY CHOLESTEROL 10/27/20 01/01/25 History fluticasone propionate 50 2 spray NASAL .DAILY PRN PRN 10/27/20 04/03/24 History mcg/actuation nasal ALLERGIES spray,suspension multivitamin 1 tab PO DAILY SUPPLEMENT 10/27/20 04/02/24 History acetaminophen 500 mg capsule 500 mg PO Q6H PRN pain #1 cap 12/28/21 04/05/23 Rx ferrous sulfate 325 mg (65 mg 325 mg PO DAILY 01/26/22 04/02/24 History iron) tablet (FeroSul) tadalafil 10 mg tablet 10 mg PO QDAY 02/05/24 01/01/25 History indomethacin 50 mg capsule 50 mg PO TID PRN PRN ALLERGIES 03/05/24 04/02/24 History lisinopril 40 mg tablet 40 mg PO DAILY 12/30/24 01/01/25 History Allergy/AdvReac Type Severity Reaction Status Date / Time Ixkpfja-DVR-FnW Reductase AdvReac Severe Other Verified 01/01/25 07:25 Inhibitor (Xqpscja-Ldo-Plb Reductase Inhibitor) Family History Other Cancer Heart disease Hypertension Surgical History (Updated 12/30/24 @ 10:43 by Estella Alas) Hx of hernia repair S/P repair of ventral hernia Hx of right cataract extraction Hx of left cataract extraction Hx of right hemicolectomy S/P colectomy History of plastic surgery History of neck surgery (~2017) History of heart bypass surgery (~2010) History of prostatectomy (~2010) History of colonoscopy (~2010) Social History household members: spouse Smoking Status: Never smoker second hand exposure: No details: RARELY substance use type: does not use seatbelt use: always do you feel safe at home: Yes Review of Systems (Anesthesia) ROS Narrative System reviewed and no additional complaints, except as documented. Physical Exam Const alert and oriented x3 HEENT dentition normal Resp normal respiratory effort Cardio regular rate
--- NOTE | 2025-01-01 08:15 | EGD_PTH ---
PATIENT: ATA DE LA TORRE LOC: EN U#:[id number] AGE/SX: 74/M ROOM: RE01/01/[address]: Dr. Bronson Jacobson MD : 1950 BED: DIS: 01/01/2025 SPEC #: [id number] RECD: 01/01/25 09:11 STATUS: TAWANDA KHOI #: [id number] AWILDA: 01/01/25 08:[address]: Bronson Jacobson DEPT: SURGICAL PATHOLOGY RECD BY: Geo Butler ENTERED: 01/01/25 10:14 SP TYPE: EGD BIOPSY VIVIAN DR: Dr. Jose Luis Larose MD Tissues: A - Esophagus, NOS Procedures: Surgery Specimen Level IV HEADER OPERATION: EGD with biopsy PRE-OP DIAGNOSIS: Mendoza's esophagus without dysphagia TISSUE SUBMITTED: A- Gastroesophageal junction biopsy MICROSCOPIC DIAGNOSIS A. 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 MICROSCOPIC DESCRIPTION Slides are reviewed. GROSS DESCRIPTION A. Received in formalin in a container labeled with the patient's name, date of , and GE junction are 2 troncoso-pink fragments of mucosal tissue measuring 0.3 x 0.3 x 0.2 cm and 0.5 x 0.2 x 0.2 cm. Submitted in toto in A1. B 01-01-2025 CPT:55945
--- NOTE | 2025-01-01 08:20 | OP.CCLET_ITS ---
01/01/2025 Jose Luis Larose [address] [place] [address] [place] [address] Re : Upper GI endoscopy procedure for Sekou Fredy Dear Dr. Larose This procedure was performed on Wednesday, January 01, 2025. 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 Biopsied. - Normal stomach. - Normal examined duodenum. Recommendations : - Discharge patient to home. - Resume previous diet. - Continue present medications. - Await pathology results. - Repeat upper endoscopy in 3 years for surveillance. My findings are described in the full procedure note, which is enclosed. If I can be of further assistance, please feel free to contact me at Doctor phone number(s): , Work: . Sincerely, Bronson Jacobson MD 01/01/2025 8:20:26 AM This report has been signed electronically.
--- NOTE | 2025-01-01 08:20 | OP.EGD_ITS ---
Patient Name: Sekou Daniel Procedure Date: 01/01/2025 8:08 AM Date of : 1950 Age: 74 Procedure: Upper GI endoscopy Indications: Mendoza's esophagus Providers: Bronson Jacobson MD Referring MD: Jose Luis Larose Medicines: Propofol per Anesthesia Patient Profile: This is a 74 year old male. Refer to note in patient chart for documentation of history and physical. Complications: No immediate complications. Estimated blood loss: Minimal. Procedure: Pre-Anesthesia Assessment: - Prior to the procedure, a History and Physical was performed, and patient medications and allergies were reviewed. The patient's tolerance of previous anesthesia was also reviewed. The risks and benefits of the procedure and the sedation options and risks were discussed with the patient. All questions were answered, and informed consent was obtained. Prior Anticoagulants: The patient has taken no anticoagulant or antiplatelet agents. After reviewing the risks and benefits, the patient was deemed in satisfactory condition to undergo the procedure. After obtaining informed consent, the endoscope was passed under direct vision. Throughout the procedure, the patient's blood pressure, pulse, and oxygen saturations were monitored continuously. The Endoscope was introduced through the mouth, and advanced to the third part of duodenum. The upper GI endoscopy was accomplished without difficulty. The patient tolerated the procedure well. Scope In: 8:14:15 AM Scope Out: 8:16:29 AM Total Procedure Duration Time 0 hours 2 minutes 14 seconds Findings: The esophagus and gastroesophageal junction were examined with white light from a forward view and retroflexed position. There were esophageal mucosal changes secondary to established short-segment Mendoza's disease. These changes involved the mucosa extending to the Z-line. One tongue of salmon-colored mucosa was present. Mucosa was biopsied with a cold forceps for histology. One specimen bottle was sent to pathology. The stomach was normal. The examined duodenum was normal. Impression: - Esophageal mucosal changes secondary to established short-segment Mendoza's disease. Biopsied. - Normal stomach. - Normal examined duodenum. Recommendation: - Discharge patient to home. - Resume previous diet. - Continue present medications. - Await pathology results. - Repeat upper endoscopy in 3 years for surveillance. 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 All rights reserved. The codes documented in this report are preliminary and upon health education aide review may be revised to meet current compliance requirements. Bronson Jacobson MD 01/01/2025 8:20:26 AM This report has been signed electronically. Number of Addenda: 0 Note Initiated On: 01/01/2025 8:08 AM
--- NOTE | 2025-01-01 08:22 | PCM.POST.ANE ---
Anesthesia: Postop Eval I Current Vital Signs Temperature: 98.9 F Pulse Rate: 65 Blood Pressure: 112/56 Respiratory Rate: 16 Pulse Ox: 94 Oxygen Delivery Method: Room Air Assessment Airway patent: Yes Spontaneous unlabored respirations: Yes Mental status: Awake and Calm nausea: No Vomiting: No Anesthesia Complication: No Fluid Hydration Crystalloid volume administer (ml): 200 Total IV fluid infused: 200 Progress Note Anesthesia document: Postop Eval 1 completed: Yes
--- NOTE | 2025-01-01 09:51 | POSTOPAN2_ITS ---
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 OPERATOR.SOBR Spontaneous unlabored Yes 01/01/25 08:23 LINTER DRIER OPERATOR.SOBR respirations Mental status Awake,Calm 01/01/25 08:23 LINTER DRIER OPERATOR.SOBR nausea No 01/01/25 08:23 LINTER DRIER OPERATOR.SOBR Vomiting No 01/01/25 08:23 LINTER DRIER OPERATOR.SOBR Anesthesia Postop Eval I: Fluid Summary Crystalloid volume administer 200 01/01/25 08:23 LINTER DRIER OPERATOR.SOBR (ml) Colloids volume administered ( ml) Blood Product volume administered (ml) Total IV fluid infused 200 01/01/25 08:23 LINTER DRIER OPERATOR.SOBR Anesthesia Postop Eval I: Summary Notes Anesthesia Complication No 01/01/25 08:23 LINTER DRIER OPERATOR.SOBR Anesthesia Complication Comment: Post-operative progress note Anesthesia: Postop Eval II Evaluation Mental status: Awake and Calm Pain Level: 2 nausea: No Vomiting: No Complications Anesthesia Complication: No
--- NOTE | 2025-01-01 09:51 | PCM.POSTANE2 ---
Anesthesia Postop Eval I Sum Postop Eval Completion status Anesthesia document: Postop Eval 1 completed: Yes Anesthesia Postop Eval I Summary Anesthesia Postop Eval I Summary: Anesthesia Postop Eval I: Assessment Summary Airway patent Yes 01/01/25 08:23 SAND MILL OPERATOR FACING SAND.SOBR Spontaneous unlabored Yes 01/01/25 08:23 SAND MILL OPERATOR FACING SAND.SOBR respirations Mental status Awake,Calm 01/01/25 08:23 SAND MILL OPERATOR FACING SAND.SOBR nausea No 01/01/25 08:23 SAND MILL OPERATOR FACING SAND.SOBR Vomiting No 01/01/25 08:23 SAND MILL OPERATOR FACING SAND.SOBR Anesthesia Postop Eval I: Fluid Summary Crystalloid volume administer 200 01/01/25 08:23 SAND MILL OPERATOR FACING SAND.SOBR (ml) Colloids volume administered ( ml) Blood Product volume administered (ml) Total IV fluid infused 200 01/01/25 08:23 SAND MILL OPERATOR FACING SAND.SOBR Anesthesia Postop Eval I: Summary Notes Anesthesia Complication No 01/01/25 08:23 SAND MILL OPERATOR FACING SAND.SOBR Anesthesia Complication Comment: Post-operative progress note Anesthesia: Postop Eval II Evaluation Mental status: Awake and Calm Pain Level: 2 nausea: No Vomiting: No Complications Anesthesia Complication: No
== END 2025-01-01 09:37 | disposition home or self-care (01) ==
LOC: EN 06:57 → AC 06:59
PROVIDERS: PCP Family Medicine; Referring Provider Family Medicine; Visit Provider Surgery
PROC: 0DJ08ZZ Inspection of Upper Intestinal Tract, Via Natural or Artificial Opening Endoscopic (ICD-10-PCS; CPT 43235; principal; 2025-01-01 08:10)
DX: K22.70 Barrett's esophagus without dysplasia (principal); E11.9 Type 2 diabetes mellitus without complications; Z79.82 Long term (current) use of aspirin; D50.9 Iron deficiency anemia, unspecified; I25.10 Atherosclerotic heart disease of native coronary artery without angina pectoris; Z95.1 Presence of aortocoronary bypass graft; E78.5 Hyperlipidemia, unspecified; I10 Essential (primary) hypertension; Z85.46 Personal history of malignant neoplasm of prostate
CPT/HCPCS: 43239; 88305

== ENCOUNTER → 2025-07-07 | Outpatient (CLI) | payer MEDICARE, BC, SELFPAY ==
[2025-07-07 12:56] LABS: Hematocrit 39.6 % (40-54); Hemoglobin 12.6 g/dL (13.0-16.5); Immature Granulocytes Count 0.020 X10^3/uL (0.0-0.0); Mean Corp Hgb Conc 31.8 g/dL (32-36); Mean Corpuscular Volume 85.9 fL (80-94); Mean Platelet Vol. 10.7 fl (6.2-12.0); NRBC Flagged by Analyzer 0 % (0-5); Platelet Count 179 K/mm3 (150-450); RBC Distribution Width CV 13.0 % (11.6-14.6); RBC Distribution Width SD 39.8 fl (35.1-43.9); Red Blood Count 4.61 M/mm3 (4.6-6.2); White Blood Count 6.8 K/mm3 (4.4-11.0)
[2025-07-07 13:52] LABS: AST(SGOT) 21 U/L (<=37); Alanine Aminotransfer ALT/SGPT 18 U/L (<=46); Albumin, Serum 4.4 g/dL (3.4-4.8); Alkaline Phosphatase 68 U/L (40-129); Anion Gap 10 (5-15); BUN 32 mg/dL (4-19); BUN/Creat Ratio 24.8 RATIO (10-20); Calcium,Total 10.1 mg/dL (7.6-11.0); Carbon Dioxide 20.2 mmol/L (21.0-32.0); Chloride 106 mmol/L (98-108); Globulin 2.6 g/dL (2.2-4.2); Glucose 182 mg/dL (70-99); Potassium 5.1 mmol/L (3.3-5.1)
[2025-07-07 14:21] LABS: PSA,Total- Diagnostic 0.56 ng/mL (0.00-4.00); Vitamin B12 2327 pg/mL (180-914)
[2025-07-08 04:07] LABS: Carcinoembryonic Antigen 3.9 ng/mL (0.0-4.7)
== END | disposition home or self-care (01) ==
LOC: LAB 12:36
PROVIDERS: PCP Family Medicine; Referring Provider Internal Medicine Hematology & Oncology; Visit Provider Internal Medicine Hematology & Oncology
DX: E11.8 Type 2 diabetes mellitus with unspecified complications (principal); E11.21 Type 2 diabetes mellitus with diabetic nephropathy; Z85.46 Personal history of malignant neoplasm of prostate; I10 Essential (primary) hypertension; Z79.899 Other long term (current) drug therapy; R79.89 Other specified abnormal findings of blood chemistry; D64.9 Anemia, unspecified; E55.9 Vitamin D deficiency, unspecified
CPT/HCPCS: 36415; 80053; 82378; 82607; 84153; 85025

== ENCOUNTER → 2025-07-14 | Outpatient (CLI) | payer MEDICARE, BC, SELFPAY ==
[2025-07-14 12:06] LABS: Creatinine, Urine (random) 54.20 mg/dL (39.00-259.00); Microalbumin,Random Urine 18.7 mg/L (<20 mg/L)
[2025-07-14 12:17] LABS: Cholesterol 192 mg/dL (<=200); Low Density Lipoprotein Calc. 114 mg/dL; PSA,Total- Diagnostic 0.56 ng/mL (0.00-4.00); Triglycerides 167 mg/dL; Very Low Density Lipoprotein 33 mg/dL (5-40); Vitamin B12 1657 pg/mL (180-914); Vitamin D,25 Hydroxy 35.4 ng/mL (30-100); cholesterol:hdl ratio screen 3.93
[2025-07-14 12:19] LABS: AST(SGOT) 22 U/L (<=37); Alanine Aminotransfer ALT/SGPT 19 U/L (<=46); Albumin, Serum 4.4 g/dL (3.4-4.8); Alkaline Phosphatase 62 U/L (40-129); Anion Gap 7 (5-15); BUN 28 mg/dL (4-19); BUN/Creat Ratio 23.4 RATIO (10-20); Calcium,Total 10.0 mg/dL (7.6-11.0); Carbon Dioxide 23.7 mmol/L (21.0-32.0); Chloride 104 mmol/L (98-108); Globulin 2.7 g/dL (2.2-4.2); Glucose 129 mg/dL (70-99); Potassium 6.1 mmol/L (3.3-5.1)
== END | disposition home or self-care (01) ==
LOC: LAB 10:43
PROVIDERS: PCP Family Medicine; Referring Provider Family Medicine; Visit Provider Family Medicine
DX: E11.21 Type 2 diabetes mellitus with diabetic nephropathy (principal); I10 Essential (primary) hypertension; E78.5 Hyperlipidemia, unspecified; E55.9 Vitamin D deficiency, unspecified; R79.89 Other specified abnormal findings of blood chemistry; Z79.899 Other long term (current) drug therapy
CPT/HCPCS: 36415; 80053; 80061; 82043; 82306; 82570; 82607; 83036; 84153

== ENCOUNTER 2025-07-15 16:28 | Emergency (ER) | payer MEDICARE, BC, SELFPAY ==
[2025-07-15 16:29] VITALS: BP 174/74; PULSE 80; RESP 16; TEMP 36.6; O2SAT 97; BMI 30.4
--- NOTE | 2025-07-15 16:47 | EX.ED.DYSGE1 ---
HPI History of Present Illness Chief Complaint: Abn Labs Informant: patient and spouse/S.O. Onset/Context/Timing Onset: Yesterday Context: Gradual Onset Timing: Continuous Worsened by: Nothing Relieved by: Nothing Narrative Narrative: Patient presents with elevated potassium that was noticed yesterday. Patient had repeat potassium drawn today which was still elevated. Patient denies any chest pain or palpitations. Patient denies any shortness of breath or cough. Patient states he has had diarrhea for the past 2 weeks. Patient admits to some urinary frequency but denies any dysuria or hematuria. Patient denies any fevers or chills. Patient denies any other symptoms. 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 History of neck injury Anemia BPH (benign prostatic hyperplasia) Chronic sinusitis Uncontrolled type 2 diabetes mellitus CAD (coronary artery disease) History of MRSA infection GERD (gastroesophageal reflux disease) Hyperlipidemia Hypertension Home Medications Medication Instructions Recorded Last Taken Type esomeprazole magnesium 40 mg 40 mg PO DAILY GERD 10/27/20 01/01/25 History capsule,delayed release ezetimibe 10 mg tablet 10 mg PO DAILY CHOLESTEROL 10/27/20 01/01/25 History fluticasone propionate 50 2 spray NASAL .DAILY PRN PRN 10/27/20 04/03/24 History mcg/actuation nasal ALLERGIES spray,suspension multivitamin 1 tab PO DAILY SUPPLEMENT 10/27/20 04/02/24 History acetaminophen 500 mg capsule 500 mg PO Q6H PRN pain #1 cap 12/28/21 04/05/23 Rx ferrous sulfate 325 mg (65 mg 325 mg PO DAILY 01/26/22 04/02/24 History iron) tablet (FeroSul) tadalafil 10 mg tablet 10 mg PO QDAY 02/05/24 01/01/25 History lisinopril 40 mg tablet 40 mg PO DAILY 12/30/24 01/01/25 History aspirin 81 mg tablet,delayed 81 mg PO BID [facility] 07/14/25 Unknown History release indomethacin 50 mg capsule 50 mg PO ONCE PRN ALLERGIES 07/14/25 Unknown History Allergy/AdvReac Type Severity Reaction Status Date / Time [id number] Reductase AdvReac Severe Other Verified 07/15/25 16:34 Inhibitor (Sqefdwy-Tbf-Kzz Reductase Inhibitor) Family History Other Cancer Heart disease Hypertension Surgical History Hx of hernia repair S/P repair of ventral hernia Hx of right cataract extraction Hx of left cataract extraction Hx of right hemicolectomy S/P colectomy History of plastic surgery History of neck surgery (~2017) History of heart bypass surgery (~2010) History of prostatectomy (~2010) History of colonoscopy (~2010) Social History household members: spouse Smoking Status: Never smoker second hand exposure: No details: RARELY substance use type: does not use seatbelt use: always do you feel safe at home: Yes ROS ROS ED Constitutional Constitutional ED: Denies chills or fever(s) Eyes Eyes: Reports blurry vision; Denies diplopia ENT ENT ED: Denies rhinorrhea or sore throat Cardiovascular Cardiovascular: Denies chest pain or palpitations Respiratory/Chest Respiratory/Chest: Denies cough or dyspnea Gastrointestinal Gastrointestinal: Reports diarrhea; Denies nausea or vomiting Genitourinary Genitourinary ED: Reports urinary frequency; Denies dysuria or hematuria Musculoskeletal Musculoskeletal: Reports back pain; Denies neck pain Integumentary Denies abscess or rash Neurologic Neurologic: Denies headache(s) or weakness Endocrine Endocrinology: Reports heat intolerance Allergic/Immunologic Allergic/Immunologic ED: Denies mouth swelling or urticaria EXAM Physical Exam Const Vital Signs: 07/15/25 16:29 07/15/25 17:10 07/15/25 18:39 Temperature 97.9 F Temperature Source Oral Pulse Rate 80 62 Respiratory Rate 16 16 Respiratory Effort Normal Non-Labored Blood Pressure 174/74 H 147/77 H Blood Pressure Mean 107 100 Pulse Ox 97 97 Oxygen Delivery Method Room Air Positive well nourished and well developed General Appearance ED: well developed and NAD HEENT Reports moist mucous membranes Neck supple and no JVD Resp normal respiratory effort and clear to auscultation bilaterally Cardio regular rate and regular rhythm GI non-tender and non-distended Palpation: soft Extremity normal to inspection Neuro oriented x3, CN's II-XII intact bilaterally and no sensory deficits noted Sensorium / Orientation: alert Motor Exam: strength 5/5 throughout Psych mental status grossly normal MDM MDM MDM Narrative Medical decision making narrative: Differential also includes acute kidney injury, electrolyte abnormality, laboratory error, cardiac dysrhythmia, dehydration, and hemolysis. CBC will be obtained to assess for leukocytosis and anemia. Basic metabolic profile will be obtained to assess for electrolyte abnormality and renal function. EKG will be obtained to assess for peaked T waves and cardiac dysrhythmia. Lab Data Attestation: I reviewed the patient's lab results. Lab results narrative: CBC was reviewed and was within normal limits. Basic metabolic profile was reviewed. Potassium was 5.6. BUN was slightly elevated at 28. Creatinine was normal at 1.20. Glucose was 189. Labs: Laboratory Results - last 24 hr 07/15/25 17:03 WBC 7.6 RBC 4.71 Hgb 13.0 Hct 39.9 L MCV 84.7 MCH 27.6 MCHC 32.6 RDW Std Deviation 39.8 RDW Coeff of Arleen 12.9 Plt Count 180 MPV 10.7 Immature Gran % (Auto) 0.100 Neut % (Auto) 63.8 Lymph % (Auto) 27.6 [place] % (Auto) 5.9 Eos % (Auto) 1.5 Baso % (Auto) 1.1 H Absolute Neuts (auto) 4.8 Absolute Lymphs (auto) 2.09 Nucleated RBC % 0 Sodium 135 Potassium 5.6 H Chloride 103 Carbon Dioxide 21.1 Anion Gap 11 BUN 28 H Creatinine 1.20 Estim Creat Clear Calc 66.63 Est GFR (MDRD) Non-Af 63 BUN/Creatinine Ratio 23.0 H Glucose 189 H Calcium 10.2 EKG Initial EKG: Attestation: I personally reviewed and interpreted this EKG as follows: Interpretation: Sinus Rhythm (72), LBBB and Non-Specific ST Changes Comments: EKG was obtained. On my independent interpretation, shows normal sinus rhythm with a rate of 72. UT interval was normal at 156 ms. QRS interval was prolonged at 156 ms. QTc interval was normal at 464 ms. [place] was normal. There is a left bundle branch block pattern noted. This was unchanged compared to previous EKG dated 04/03/2024. Prior EKG tracings: available for review Prior: Unchanged (04/03/2024) Treatment and Re-Evaluation :: Patient dose of calcium gluconate, insulin, and dextrose. Patient was instructed to follow-up with his primary care physician in 3 to 5 days for further evaluation. Patient was instructed return if worse in any way. Patient understood and was agreeable with the plan. All questions were answered. Discharge Plan Triage Chief Complaint: Abn Labs ED Provider: Radu Evans Dx/Rx/DC Orders Clinical Impression: Hyperkalemia, Hypertension Instructions: ED Hyperkalemia Prescriptions: No Action acetaminophen 500 mg capsule 500 mg PO Q6H PRN (Reason: pain) Qty: 1 0RF tadalafil 10 mg tablet 10 mg PO QDAY multivitamin 1 TABLET tablet 1 tab PO DAILY esomeprazole magnesium 40 MG capsule,delayed release(DR/EC) 40 mg PO DAILY fluticasone propionate 16 GM spray,suspension 2 spray NASAL .DAILY PRN PRN (Reason: ALLERGIES) Patient Comments: USE 2 SPRAY(S) IN EACH NOSTRIL ONCE DAILY ezetimibe 10 MG tablet 10 mg PO DAILY aspirin 81 mg tablet,delayed release (DR/EC) 81 mg PO BID Patient Comments: pt instructed to verify if need to stop for upcoming surgery ferrous sulfate [FeroSul] 325 mg (65 mg iron) tablet 325 mg PO DAILY Patient Comments: TAKE 1 TABLET BY MOUTH THREE TIMES DAILY indomethacin 50 mg capsule 50 mg PO ONCE PRN (Reason: ALLERGIES) Rx Instructions: administer with food or milk lisinopril 40 mg tablet 40 mg PO DAILY Primary Care Provider: Jose Luis Larose Referrals: Jose Luis Larose MD [Primary Care Provider, Family Practice] - 3-5 Days Print Language: Haitian Disposition Disposition: Home, Self Care
[2025-07-15 17:22] LABS: Hematocrit 39.9 % (40-54); Hemoglobin 13.0 g/dL (13.0-16.5); Immature Granulocytes Count 0.010 X10^3/uL (0.0-0.0); Mean Corp Hgb Conc 32.6 g/dL (32-36); Mean Corpuscular Volume 84.7 fL (80-94); Mean Platelet Vol. 10.7 fl (6.2-12.0); NRBC Flagged by Analyzer 0 % (0-5); Platelet Count 180 K/mm3 (150-450); RBC Distribution Width CV 12.9 % (11.6-14.6); RBC Distribution Width SD 39.8 fl (35.1-43.9); Red Blood Count 4.71 M/mm3 (4.6-6.2); White Blood Count 7.6 K/mm3 (4.4-11.0)
[2025-07-15 18:02] LABS: Anion Gap 11 (5-15); BUN 28 mg/dL (4-19); BUN/Creat Ratio 23.0 RATIO (10-20); Calcium,Total 10.2 mg/dL (7.6-11.0); Carbon Dioxide 21.1 mmol/L (21.0-32.0); Chloride 103 mmol/L (98-108); Estimated Creatinine Clearance 66.63 ml/min (50-250); Glucose 189 mg/dL (70-99); Potassium 5.6 mmol/L (3.3-5.1)
[2025-07-15] MEDS: Insulin Lispro 10 UNIT in Syringe 0 ML 6 UNIT IV (18:32)
[2025-07-15] MEDS: Calcium Gluconate IV 3 GM in Syringe 1 EACH IV (18:32)
[2025-07-15 18:39] VITALS: BP 147/77; PULSE 62; RESP 16; O2SAT 97
[2025-07-15 19:40] VITALS: BP 149/80; PULSE 71; RESP 22; TEMP 37.1; O2SAT 94
== END 2025-07-15 19:44 | disposition home or self-care (01) ==
PROVIDERS: Emergency Provider Emergency Medicine; PCP Family Medicine; Visit Provider Emergency Medicine
DX: E87.5 Hyperkalemia (principal); E11.65 Type 2 diabetes mellitus with hyperglycemia; E11.69 Type 2 diabetes mellitus with other specified complication; E78.5 Hyperlipidemia, unspecified; I25.10 Atherosclerotic heart disease of native coronary artery without angina pectoris; I10 Essential (primary) hypertension; Z79.82 Long term (current) use of aspirin; Z79.899 Other long term (current) drug therapy; Z86.16 Personal history of COVID-19
CPT/HCPCS: 80048; 85025; 93005; 99283; A4216; J0612

== ENCOUNTER → 2025-07-15 | Outpatient (CLI) | payer MEDICARE, BC, SELFPAY ==
[2025-07-15 12:16] LABS: Potassium 6.0 mmol/L (3.3-5.1)
== END | disposition home or self-care (01) ==
LOC: LAB 10:51
PROVIDERS: PCP Family Medicine; Referring Provider Family Medicine; Visit Provider Family Medicine
DX: E87.5 Hyperkalemia (principal)
CPT/HCPCS: 36415; 84132